=== PATIENT | male | born 1970 | race Caucasian/White ===

== ENCOUNTER 2016-09-25 18:45 | Inpatient (IN) | payer OTHER ==
[~2016-09-25] VITALS: Ht 188 cm; Wt 104.6 kg
--- NOTE | 2016-09-26 00:34 | DIAGNOSTIC IMAGING REPORT ---
PROCEDURE: CT ABD/PELVIS WITH CONTRAST INDICATION: Abdominal pain and jaundice. History of cirrhosis. TECHNIQUE: 125 ml of Isovue 300 were injected intravenously and axial images were obtained of the entire abdomen and pelvis with sagittal and coronal reformations. COMPARISON: None. FINDINGS: ABDOMEN: Cholecystectomy (surgical clips). Cirrhosis of the liver with portal hypertension and marked splenomegaly (17 cm). Moderate ascites. Pancreas, kidneys, and aorta are normal. Moderate degenerate change of the lumbar spine. Bowel pattern is within normal limits. PELVIS: Moderate ascites. Surgical clips in the cul-de-sac. Pelvic structures are otherwise normal.. IMPRESSION: 1. Cirrhosis with portal hypertension. 2. Marked splenomegaly (17 cm). 3. Moderate ascites 4. Status post cholecystectomy. 5. Findings discussed with Dr. Cowart. All CT scans at this facility use dose modulation, iterative reconstruction, and/or weight-based dosing when appropriate to reduce radiation dose to as low as reasonably achievable.
--- NOTE | 2016-09-26 00:37 | ED ORDER SUMMARY ---
..... Patient: MIRANDA SHANKS OrderSheet [facility] VisitID: [id number] [place] [address] 46y, M Registration Date/Time: 09/25/2016 ORDER SHEET Weight: 99.7 kg (stated) Allergies: Penicillins GENERAL ORDERS: CBC w Diff Urgent (20:34 09/25/2016 Asia WHITE) (Ack 20:35 SRedmond) (21:02 KPage-Kuchan R.N.) CMP Urgent (20:34 09/25/2016 Asia WHITE) (Ack 20:35 SRedmond) (21:02 KPage-Kuchan R.N.) Record Maker (Continuous) (20:09/25/2016 Asia WHITE) (Ack 20:40 SRedmond) (21:02 KPage-Kuchan R.N.) PCT (Procalcitonin) Urgent (20:09/25/2016 Asia WHITE) (Ack 20:40 SRedmond) (21:02 KPage-Kuchan R.N.) Blood Culture (No) (N/A) Urgent (22:31 09/25/2016 Yamileth WHITE) (Ack 22:39 SRedmond) (1:10 KPage-Kuchan R.N.) Culture, Urine (Urine, Clean Catch) Urgent (22:09/25/2016 Yamileth WHITE) (Ack 22:39 SRedmond) (0:43 KPage-Kuchan R.N.) Culture, Sputum (Sputum) (sputum) Urgent (22:31 09/25/2016 Yamileth WHITE) (Ack 22:39 SRedmond) (0:49 CFalkner R.N.) - (Ascitic fluid for cell count, culture, albumin, protein, glucose,LDH,amylase, bilirubin) (23:35 09/25/2016 Yamileth WHITE) (Ack 23:45 SRedmond) (0:47 CHagerty ER Surveying Crew Stake Runner) CT Abd/Pel w Cont (No) (see report) Urgent (23:36 09/25/2016 Yamileth WHITE) (Ack 23:43 SRedmond) (0:13 Jeffrey) Ammonia Level Urgent (23:42 09/25/2016 Yamileth WHITE) (Ack 23:43 Braydon) (1:10 KPage-Stefania R.N.) MEDICATION ORDERS: IV FLUIDS: IV Saline Lock (20:38 09/25/2016 Asia WHITE) (21:02 KPage-Kuchan R.N.) Cefotaxime IV 2 gm/100mL (NOW) (00:35 09/26/2016 Yamileth WHITE) (Cancelled: Unavailable/Mat/Equip0:51 Yamileth WHITE) Ceftriaxone IV 2 gm/50mL (NOW) (00:51 09/26/2016 Yamileth WHITE) (1:33 KPage-Danielen R.N.) ORDER SHEET NOTES: [Electronically signed by Irvin Roque R.N. (02:17 09/26/2016)] [Electronically signed by Sergei Cowart MD (03:34 09/26/2016)] [Electronically locked/signed by Irvin Roque R.N. (02:17 09/26/2016)]
--- NOTE | 2016-09-26 00:37 | ED ORDER SUMMARY ---
..... Patient: MIRANDA SHANKS OrderSheet [facility] VisitID: [id number] [place] [address] 46y, M Registration Date/Time: 09/25/2016 ORDER SHEET Weight: 99.7 kg (stated) Allergies: Penicillins GENERAL ORDERS: CBC w Diff Urgent (20:34 09/25/2016 Asia WHITE) (Ack 20:35 SRedmond) (21:02 KPage-Kuchan R.N.) CMP Urgent (20:34 09/25/2016 Asia WHITE) (Ack 20:35 SRedmond) (21:02 KPage-Kuchan R.N.) Machine Molder (Continuous) (20:09/25/2016 Asia WHITE) (Ack 20:40 SRedmond) (21:02 KPage-Kuchan R.N.) PCT (Procalcitonin) Urgent (20:09/25/2016 Asia WHITE) (Ack 20:40 SRedmond) (21:02 KPage-Kuchan R.N.) Blood Culture (No) (N/A) Urgent (22:31 09/25/2016 Yamileth WHITE) (Ack 22:39 SRedmond) (1:10 KPage-Kuchan R.N.) Culture, Urine (Urine, Clean Catch) Urgent (22:09/25/2016 Yamileth WHITE) (Ack 22:39 SRedmond) (0:43 KPage-Kuchan R.N.) Culture, Sputum (Sputum) (sputum) Urgent (22:31 09/25/2016 Yamileth WHITE) (Ack 22:39 SRedmond) (0:49 CFalkner R.N.) - (Ascitic fluid for cell count, culture, albumin, protein, glucose,LDH,amylase, bilirubin) (23:35 09/25/2016 Yamileth WHITE) (Ack 23:45 SRedmond) (0:47 CHagerty ER Peanut Blancher) CT Abd/Pel w Cont (No) (see report) Urgent (23:36 09/25/2016 Yamileth WHITE) (Ack 23:43 SRedmond) (0:13 Jeffrey) Ammonia Level Urgent (23:42 09/25/2016 Yamileth WHITE) (Ack 23:43 Braydon) (1:10 KPage-Stefania R.N.) MEDICATION ORDERS: IV FLUIDS: IV Saline Lock (20:38 09/25/2016 Asia WHITE) (21:02 KPage-Kuchan R.N.) Cefotaxime IV 2 gm/100mL (NOW) (00:35 09/26/2016 Yamileth WHITE) (Cancelled: Unavailable/Mat/Equip0:51 Yamileth WHITE) Ceftriaxone IV 2 gm/50mL (NOW) (00:51 09/26/2016 Yamileth WHITE) (1:33 KPage-Danielen R.N.) ORDER SHEET NOTES: [Electronically signed by Irvin Roque R.N. (02:17 09/26/2016)] [Electronically signed by Sergei Cowart MD (03:34 09/26/2016)] [Electronically locked/signed by Irvin Roque R.N. (02:17 09/26/2016)]
--- NOTE | 2016-09-26 00:37 | ED CLINICAL REPORT ---
Clinical Report - Physicians/Mid Levels [facility] [address] [place] [address] 09/25/2016 18:45 Patient: MIRANDA SHANKS Time Seen: 19:44 Sep 25 2016. Arrived- By private vehicle. Historian- patient. HISTORY OF PRESENT ILLNESS Chief Complaint: ABDOMINAL PAIN. It is described as "pain" and diffuse and it is described as located in the periumbilical area. At its maximum, severity described as severe. When seen in the E.D., severity described as severe. This started just prior to arrival and is still present. The patient has had nausea. He has had mild vomiting. The vomiting has occurred several times. No blood-tinged emesis or frankly bloody emesis. Similar symptoms previously: Several times, as bad. Diagnosis: (ascites). Recent medical care: The patient was seen recently at another facility and hospitalized (2 months ago at [facility]:). Evaluation/treatment- 5 liters removed. REVIEW OF SYSTEMS The patient has had fever and fatigue. No calf pain, chest pain, cough, difficulty breathing or pedal edema. No palpitations, black stools, bloody stools or urinary problems. All systems otherwise negative, except as recorded above. PAST HISTORY Problems: Suture Removal. Murmur. Esophageal ulcers. Gastric ulcer. Kidney problems. Liver failure. Alcoholism. Additional Surgeries: Carpal Tunnel Surgery. Cholecystectomy. Dental Surgery. Hernia Repair. Medications: Xifaxan Oral (Tablet 550 mg) 1 tablet, 2 times daily. Ursodiol Oral (Capsule 300 mg) 2 capsules, 2 times daily. Spironolactone Oral (Tablet 50 mg) 1 tablet, daily. Propranolol HCl Oral (Tablet 10 mg) 1 tablet, 2x a day. Pantoprazole Sodium Oral (Tablet Delayed Release 40 mg) 1 tablet, daily. Lactulose Oral (Solution 20 gm/30mL), 3x a day. Furosemide Oral (Tablet 20 mg) 1 tablet, daily. Dicyclomine HCl Oral (Tablet 20 mg) 1 tablet, 4x a day. Allergies: Penicillins. SOCIAL HISTORY Alcohol use. Patient is a recovering alcoholic. FAMILY HISTORY Denies family medical history. ADDITIONAL NOTES The nursing notes have been reviewed. PHYSICAL EXAM Vital Signs: 09/25/2016 19:42 BP: 127/65. HR: 99. RR: 17. O2 saturation: 100%. Temp: 99.7 F. Pain level now: 02/15. Have been reviewed. Appearance: Alert. Appears to be in pain. Eyes: Pupils equal, round and reactive to light. ENT: Pharynx normal. Neck: Normal inspection. Neck supple. Respiratory: No respiratory distress. Breath sounds normal. Abdomen: Soft. No organomegaly. No mass. Distention (mild). Obese. Back: Normal inspection. Skin: Jaundiced. Extremities: Extremities exhibit normal ROM. No lower extremity edema. LABS, X-RAYS, AND EKG Abdominal CT: IMPRESSION: 1. Cirrhosis with portal hypertension. 2. Marked splenomegaly (17 cm). 3. Moderate ascites 4. Status post cholecystectomy. The study was interpreted contemporaneously by me and discussed with the radiologist. Laboratory Tests: CMP: (APOLLO: 09/26/2016 02:45) ( MsgRcvd 09/26/2016 03:07) Final results Test Result Flag Units (Reference) GLUCOSE 102 mg/dL (70-110) BUN 18 mg/dL (7-18) CREATININE 1.4 H mg/dL (0.6-1.3) Estimated GFR 57.99 mL/min Estimated GFR- >60 mL/min Note: Persistent reduction over 3 months in eGFR<60 mL/min/1.73 m2 defines CKD. Patients with eGFR values>=60 mL/min/1.73 m2 may also have CKD if evidence ofpersistent proteinuria. Additional information may be foundat www.kidney.org. SODIUM 133 L mmol/L (136-145) POTASSIUM 4.2 mmol/L (3.5-5.1) CHLORIDE 102 mmol/L (98-107) CARBON DIOXIDE 22 mmol/L (21-32) CALCIUM 8.5 mg/dL (8.5-10.1) TOTAL PROTEIN 6.1 L g/dL (6.4-8.2) ALBUMIN 2.4 L g/dL (3.3-5.0) BILIRUBIN, TOTAL 8.1 H mg/dL (0.0-1.0) ALKALINE PHOSPHATASE 177 H U/L (46-116) AST (SGOT) 50 H U/L (15-37) ALT (SGPT) 30 U/L (12-78) CBC w Diff: (APOLLO: 09/25/2016 20:57) ( [facility] [place] 22:07) Final results Test Result Flag Units (Reference) WHITE BLOOD COUNT 10.0 K/uL (4.5-11.5) RED BLOOD COUNT 2.41 L M/uL (4.50-5.90) HEMOGLOBIN 8.8 L gm/dL (13.5-17.5) HEMATOCRIT 24.9 L % (41.0-53.0) MEAN CELL VOLUME 104 H fL (80-100) MEAN CORPUSCULAR HGB 37 H pg (26-34) MEAN CORPUSCULAR HGB CONC 36 g/dL (31-37) RED CELL DISTRIBUTION WIDTH 15.8 H % (11.6-14.8) PLATELET COUNT 79 L K/uL (150-400) POLY % 82 H % (50-75) BAND % 1 % (0-8) LYMPH 8 L % (25-40) MONO 7 % (3-14) EOSINOPHIL % 2 % (0-4) BASOPHIL % 0 % (0-2) METAMYELOCYTE % 0 % (0-1) MYELOCYTE 0 % (0-1) OTHER CELL TYPE 0 POLYCHROMASIA 1+ ANISOCYTOSIS 1+ OVALOCYTES 1+ HELMET CELLS 1+ GIBSON CELLS 1+ Glucose, Random: (APOLLO: 09/25/2016 23:45) ( [facility] [place] 00:34) Final results Test Result Flag Units (Reference) GLUCOSE 106 mg/dL (70-110) TOTAL PROTEIN 0.6 L g/dL (6.4-8.2) ALBUMIN 0.2 L g/dL (3.3-5.0) BILIRUBIN, TOTAL 0.7 mg/dL (0.0-1.0) LDH 122 U/L (117-222) AMYLASE 15 L U/L (25-115) Ammonia Level: (APOLLO: 09/25/2016 20:57) ( MsgRcvd 09/26/2016 00:22) Final results Test Result Flag Units (Reference) AMMONIA 43 H umol/L (11-32) [id number]: (APOLLO: 09/25/2016 20:57) ( MsgRcvd 09/25/2016 21:59) Final results Test Result Flag Units (Reference) PROCALCITONIN <0.5 ng/mL (0-0.5) PCT Concentration: Interpretation : Risk/option for action PCT <=0.5 ng/mL : Systemic : Low risk forinfection(sepsis): progression to severeis not likely. : systemic infection.Local bacterial : CAUTION-PCT levelsinfection is : below 0.5 ng/mL do notpossible. : exclude an infection,because localizedinfections (withoutsystemic signs) may beassociated with suchlow levels. If PCT ismeasured very earlyafter a bacterialchallenge (usually <6hours), these valuesmay still be low. Inthis case PCT shouldbe re-assessed 6-24hours later. PCT >0.5 and : Systemic infection: Moderate risk for<= 2 ng/mL : (sepsis) is : progression to severepossible, but : systemic infection.other conditions : The patient should beare known to : closely monitoredelevate PCT. : both clinically andby re-assessing PCTwithin 6-24 hours. PCT > 2 ng/mL : Systemic infection: High risk for(sepsis) is likely: progression to severeunless other : systemic infection.causes are known. : PCT >= 10 ng/mL : Important systemic: High likelihood ofinflammatory : severe sepsis orresponse, almost : septic shock.exclusively due to:severe bacterial :sepsis or septic :shock. : CMP: (APOLLO: 09/25/2016 20:57) ( MsgRcvd 09/25/2016 21:28) Final results Test Result Flag Units (Reference) GLUCOSE 109 mg/dL (70-110) BUN 18 mg/dL (7-18) CREATININE 1.5 H mg/dL (0.6-1.3) Estimated GFR 53.55 mL/min Estimated GFR- >60 mL/min Note: Persistent reduction over 3 months in eGFR<60 mL/min/1.73 m2 defines CKD. Patients with eGFR values>=60 mL/min/1.73 m2 may also have CKD if evidence ofpersistent proteinuria. Additional information may be foundat www.kidney.org. SODIUM 133 L mmol/L (136-145) POTASSIUM 4.6 mmol/L (3.5-5.1) CHLORIDE 101 mmol/L (98-107) CARBON DIOXIDE 23 mmol/L (21-32) CALCIUM 8.8 mg/dL (8.5-10.1) TOTAL PROTEIN 7.0 g/dL (6.4-8.2) ALBUMIN 2.8 L g/dL (3.3-5.0) BILIRUBIN, TOTAL 8.6 H mg/dL (0.0-1.0) Icteric specimen ALKALINE PHOSPHATASE 226 H U/L (46-116) AST (SGOT) 59 H U/L (15-37) ALT (SGPT) 34 U/L (12-78) Body Fluid Cell Count: (APOLLO: 09/25/2016 23:45) ( MsgRcvd 09/26/2016 00:49) Final results Test Result Flag Units (Reference) BODY FLUID TYPE ASCITES BF APPEARANCE SLIGHTLY HAZY (CLEAR) BF COLOR YELLOW BODY FLUID WBC 1410 WBC/mm3 BODY FLUID RBC 115 RBC/mm3 BODY FLUID SEGMENTED NEUTS 94 % BODY FLUID MONONUCLEAR CELLS 6 % . PROGRESS AND PROCEDURES Paracentesis: Time-out completed immediately before the procedure. Explained procedure's risks, benefits, and alternatives to the patient. Possible complications discussed including infection, bleeding, perforation and allergic reaction. Prep done with Betadine. Local anesthesia provided using 2% lidocaine with epinephrine. The procedure was performed with the patient supine. Sterile technique used. Landmarks identified; left lower quadrant approach taken. Ultrasound guidance utilized. Peritoneal fluid aspirated using 18g needle. Yellow, cloudy fluid obtained. Fluid sent for culture and sensitivity, cell count, gram stain, albumin. Applied bandage and compression. No complications. Course of Care: Patient is stable. Discussed case with hospitalist, (Agustín). Reviewed test results and need for additional work-up. Agreed upon treatment plan, need for patient follow-up and decision to admit. Patient/family counseled. Old medical records reviewed. Disposition: Admitted. CLINICAL IMPRESSION Spontaneous bacterial peritonitis. INSTRUCTIONS Warnings: Further evaluation is necessary. GENERAL WARNINGS: Return or contact your physician immediately if your condition worsens or changes unexpectedly, if not improving as expected, or if other problems arise. (Electronically signed by Sergei Cowart MD 09/26/2016 3:34)
--- NOTE | 2016-09-26 00:37 | ED NURSING NOTES ---
Clinical Report - Nurses [facility] [address] [place] [address] 09/25/2016 18:45 Patient: MIRANDA SHANKS TRIAGE Triage time 19:42 Apr 2016. Acuity: LEVEL 3. Chief Complaint: ABDOMINAL PAIN and (pt with hx of cirrhosis of liver wtih ascites- r/t etoh- sclera of eyes jaundiced). Alert. No acute distress. SEPSIS SCREEN: Sepsis Screen: negative. Infection suspected/documented. Heart rate greater than 90. --19:50 Juan Ramon Jasso R.N. 19:42 09/25/16. BP: 127/65 taken on the left arm, while lying. HR: 99. RR: 17 (regular). O2 saturation: 100%. Temp: 99.7 F. Pain level now: 02/15. --19:50 Juan Ramon Jasso R.N. Weight: 99.7 kg stated. Height/Length: 74 inches Per Patient. BMI: 28.2. --19:50 Juan Ramon Jasso R.N. Medications Dicyclomine HCl Oral (Tablet 20 mg) 1 tablet, 4x a day. --19:54 Juan Ramon Jasso R.N. Furosemide Oral (Tablet 20 mg) 1 tablet, daily. --19:54 Juan Ramon Jasso R.N. Lactulose Oral (Solution 20 gm/30mL), 3x a day. --19:55 Juan Ramon Jasso R.N. Pantoprazole Sodium Oral (Tablet Delayed Release 40 mg) 1 tablet, daily. --19:56 Juan Ramon Jasso R.N. Propranolol HCl Oral (Tablet 10 mg) 1 tablet, 2x a day. --19:57 Juan Ramon Jasso R.N. Spironolactone Oral (Tablet 50 mg) 1 tablet, daily. --19:57 Juan Ramon Jasso R.N. Ursodiol Oral (Capsule 300 mg) 2 capsules, 2 times daily. --19:58 Juan Ramon Jasso R.N. Xifaxan Oral (Tablet 550 mg) 1 tablet, 2 times daily. --20:00 Juan Ramon Jasso R.N. Allergies Penicillins. --19:45 Juan Ramon Jasso R.N. History Arrived by private vehicle. Historian: patient. The patient has had nausea, mild vomiting. It has been similar to previous episodes and abdominal pain. ( headache). Last oral intake by patient was (9 hours ago). 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 PAST MEDICAL HX: Immunizations: (not given due to liver #'s). SOCIAL HX: Never smoker. Alcohol use. (last drink july 07, 2015). No recent travel. No infectious disease exposure. No known contact with a sick individual. ABUSE ASSESSMENT: No report of abuse. SELF HARM ASSESSMENT: A self harm assessment was performed. The patient answered "no" to the question "Have you recently felt down, depressed, or hopeless?", "Have you noticed less interest or pleasure in doing things?", "Do you have thoughts of harming or killing yourself?", "Are you here because you tried to hurt yourself?", "Have you ever tried to hurt yourself before today?", "Have you recently had thoughts about harming or killing others?" and "Do you have any dangerous items in your possession?". FALL RISK ASSESSMENT: Fall risk assessment completed. No fall risk identified. NUTRITIONAL RISK ASSESSMENT: The nutritional risk assessment revealed no deficiencies. FUNCTIONAL ASSESSMENT: Functional assessment: no impairments noted. LEARNING NEEDS ASSESSMENT: The learning needs assessment revealed no barriers. SKIN INTEGRITY ASSESSMENT: Skin integrity risk assessment completed. No skin integrity risk identified. --19:50 Juan Ramon Jasso R.N. PROBLEMS: Suture Removal. Murmur. Esophageal ulcers. Gastric ulcer. Kidney problems. Liver failure. Alcoholism. --19:45 Juan Ramon Jasso R.N. ADDITIONAL SURGERIES: Carpal Tunnel Surgery. Cholecystectomy. Dental Surgery. Hernia Repair. --19:45 Juan Ramon Jasso R.N. Interventions ID and allergy band on patient. To treatment room. --19:50 Juan Ramon Jasso R.N. PHYSICAL ASSESSMENT Ambulatory to room. Patient gowned. ( jaundiced). GENERAL / NEURO / PSYCH: Alert. Oriented X 4. Appears in pain. RESPIRATORY: Respirations not labored. Breath sounds within normal limits. CVS: Capillary refill less than 2 seconds. GI / : The patient has had intermittent episodes of nausea. Abdomen soft. Abdominal tenderness diffusely (diffuse with worse pain to RUQ). Blood present in the stool. SKIN: Skin is warm and dry. --19:52 Juan Ramon Jasso R.N. ( pt remains in ST on monitor, c/o pain 9/10 mid abd, set up for paracentesis at bedside,). GENERAL / NEURO / PSYCH: Alert. Oriented X 4. SKIN: Skin is warm and dry. --22:55 Juan Ramon Jasso R.N. NURSING PROGRESS NOTES Pulse oximeter and NIBP monitor placed on patient; monitor alarms on. Patient gowned. Head of bed elevated. Two patient identifiers checked. Call light placed in reach. Side rails up x 2. Bed placed in lowest position. Brakes of bed on. Patient ready for evaluation- chart flagged. --19:52 Juan Ramon Jasso R.N. 20:57 09/25/2016 Site #1 started via IV in the right antecubital space with an 20g angiocath; one attempt. Blood drawn: rainbow set. Labeled in the presence of the patient and sent to the lab. Saline lock flushed. --21:02 Juan Ramon Jasso R.N. Cardiac rhythm: sinus tachycardia. cafeteria monitor, pulse oximeter and NIBP monitor placed on patient; bus driver/monitor- Lead II and V5; monitor alarms on. Two patient identifiers checked. Call light placed in reach. Side rails up x 2. Bed placed in lowest position. Brakes of bed on. Patient waiting for lab results. --21:03 Juan Ramon Jasso R.N. 21:01 09/25/16. BP: 118/53. HR: 102. O2 saturation: 99% on room air. --21:03 Juan Ramon Jasso R.N. 21:57 09/25/16. BP: 94/54. HR: 105. O2 saturation: 99%. --21:58 Juan Ramon Jasso R.N. 22:43 09/25/16. BP: 105/53. HR: 105. O2 saturation: 99% on room air. --22:43 Juan Ramon Jasso R.N. Call light placed in reach. --22:43 Juan Ramon Jasso R.N. 22:55 09/25/16. BP: 109/51. HR: 102 (tachycardic). RR: 17. O2 saturation: 99% on room air. Pain level now: 02/15. --22:56 Juan Ramon Jasso R.N. Call light placed in reach. --22:56 Juan Ramon Jasso R.N. 23:33 09/25/16. BP: 106/51. HR: 104. 23:14 09/25/16. BP: 112/53. HR: 106. 23:02 09/25/16. BP: 118/55. HR: 107. O2 saturation: 100%. 22:55 09/25/16. BP: 109/51. HR: 102 (tachycardic). RR: 17. O2 saturation: 99% on room air. Pain level now: 02/15. 22:43 09/25/16. BP: 105/53. HR: 105. O2 saturation: 99% on room air. 21:57 09/25/16. BP: 94/54. HR: 105. O2 saturation: 99%. 21:34 09/25/16. BP: 98/44. HR: 117. Pain level now: 02/15. 21:01 09/25/16. BP: 118/53. HR: 102. O2 saturation: 99% on room air. 19:42 09/25/16. BP: 127/65 taken on the left arm, while lying. HR: 99. RR: 17 (regular). O2 saturation: 100%. Temp: 99.7 F. Pain level now: 02/15. --00:34 Juan Ramon Jasso R.N. ( notified of pts bp-no orders received.). --00:37 Juan Ramon Jasso R.N. Checked patient name and birthdate: patient confirmed. Patient verbalized understanding. Clean catch urine collected with return of brown-colored urine; sample sent to lab for urinalysis. Specimen labeled in the presence of the patient (collected by Marleny BRIDGES). --00:42 Juan Ramon Jasso R.N. Patient ID band checked for patient name and birthdate: patient confirmed. Blood samples drawn from the left antecubital space with syringe and 21g butterfly by tech per protocol ; labeled in presence of the patient and sent to lab: blood culture (2nd set). --01:19 Adam Wilcox, BRAD Software Reverse Engineer ( Report received from CYRUS Delatorre). --01:19 Irvin Roque R.N. ( Patient on monitor: Sinus Tach). --01:20 Irvin Roque R.N. 01:22 09/26/2016 Started 2 gm of Ceftriaxone IVPB in bag #1 100 mL; at 75 mL/hr via site #1 via IV pump. Allergies verified and confirmed 5 rights. IV patency established. IV site checked: no pain, redness, or swelling. IV flushed thoroughly pre- and post-medication administration (due to pts pcn allergy, started at slower rate and monitoring, pt instructed to notify RN immediately for any symptoms of reaction). --01:33 Juan Ramon Jasso R.N. Care transferred and report given (Davi RN in ED, report called to Gayle BRIDGES for admission). --01:35 Juan Ramon Jasso R.N. 01:48 09/26/16. BP: 115/52 taken while sitting. HR: 108 (regular). RR: 18. O2 saturation: 100% on room air. --01:49 Irvin Roque R.N. ( talking with doctor). --01:49 Irvin Roque R.N. 01:50 09/26/2016 IV Saline Lock Drip IV Continued: upon admission at the rate of 75 mL/hr. IV patency established. IV site checked: no pain, redness, or swelling. IV flushed thoroughly. --01:51 Irvin Roque R.N. DISPOSITION / DISCHARGE Report was given to a nurse via a phone call. Report included patient's care, treatment, medications, reviewed medication reconcilliation, and condition (including any recent changes or anticipated changes). All questions were answered. Report was acknowledged. (Gayle BRIDGES). ( care released to Davi BRIDGES). --01:34 Page-Juan Ramon Aguiar R.N. Departure time: 0205. --02:16 Irvin Roque R.N. 01:48 09/26/16. BP: 115/52 taken while sitting. HR: 108 (regular). RR: 18. O2 saturation: 100% on room air. --02:16 Irvin Roque R.N. Patient's personal items include: shirt, pants, shoes and cell phone; items were transported with the patient. --02:17 Irvin Roque R.N. Locked/Released at 09/26/2016 2:17 by Irvin Roque R.N.
[2016-09-26 02:14] VITALS: BP 120/50
[2016-09-26] MEDS ORDERED: DICYCLOMINE HCL20 MG PO (02:45)
[2016-09-26] MEDS ORDERED: FUROSEMIDE20 MG PO (02:46)
[2016-09-26] MEDS ORDERED: LACTULOSE PO (02:47)
[2016-09-26] MEDS ORDERED: PROPRANOLOL HCL10 MG PO (02:48)
[2016-09-26] MEDS ORDERED: PANTOPRAZOLE SO40 MG PO (02:48)
[2016-09-26] MEDS ORDERED: ALDACTONE25 MG PO (02:49)
[2016-09-26] MEDS ORDERED: URSODIOL300 MG PO (02:50)
[2016-09-26] MEDS ORDERED: XIFAXAN550 MG PO (02:50)
--- NOTE | 2016-09-26 03:34 | ED MAR SUMMARY ---
..... Medication Administration Record [facility] [address] [place] [address] Patient: MIRANDA SHANKS Visit ID: [id number] 46y, M Weight: 99.7 kg Height/Length: 74 in BMI: 28.2 ALLERGIES: Penicillins Start 01:22 09/26/2016 Juan Ramon Jasso R.N. Medication Administered: CEFTRIAXONE [IVPB], Dose: 2 gm IVPB, Rate: 75 mL/hr, Dispensed: 100 mL bag, Site: #1 right AC. Medication Ordered: Ceftriaxone IV 2 gm/50mL (NOW).
--- NOTE | 2016-09-26 03:34 | ED MED RECONCILIATION SUMMARY ---
Patient: MIRANDA SHANKS Medication Reconciliation Report [facility] VisitID: [id number] [address] [place] [address] 46y, M Registration Date/Time: 09/25/2016 Weight: 99.7 kg Height/Length: 74 in. BMI: 28.2 ALLERGIES: Penicillins The patient's Home Medications are listed below: THE FOLLOWING MEDICATIONS NEED TO BE RECONCILED: Dicyclomine HCl Oral (20 mg) 1 tablet, 4x a day Furosemide Oral (20 mg) 1 tablet, daily Lactulose Oral (20 gm/30mL), 3x a day Pantoprazole Sodium Oral (40 mg) 1 tablet, daily Propranolol HCl Oral (10 mg) 1 tablet, 2x a day Spironolactone Oral (50 mg) 1 tablet, daily Ursodiol Oral (300 mg) 2 capsules, 2 times daily Xifaxan Oral (550 mg) 1 tablet, 2 times daily The source(s) of the original Home Medication information: Not obtained. The following Medications were given to the patient in the Emergency Department: Ceftriaxone [IVPB] IVPB bolus 0, then 2 gm 75 mL/hr, administered: 09/26/2016 1:22:00 AM The following Medications were prescribed to the patient: None.
--- NOTE | 2016-09-26 03:34 | ED MED RECONCILIATION SUMMARY ---
Patient: MIRANDA SHANKS Medication Reconciliation Report [facility] VisitID: [id number] [address] [place] [address] 46y, M Registration Date/Time: 09/25/2016 Weight: 99.7 kg Height/Length: 74 in. BMI: 28.2 ALLERGIES: Penicillins The patient's Home Medications are listed below: THE FOLLOWING MEDICATIONS NEED TO BE RECONCILED: Dicyclomine HCl Oral (20 mg) 1 tablet, 4x a day Furosemide Oral (20 mg) 1 tablet, daily Lactulose Oral (20 gm/30mL), 3x a day Pantoprazole Sodium Oral (40 mg) 1 tablet, daily Propranolol HCl Oral (10 mg) 1 tablet, 2x a day Spironolactone Oral (50 mg) 1 tablet, daily Ursodiol Oral (300 mg) 2 capsules, 2 times daily Xifaxan Oral (550 mg) 1 tablet, 2 times daily The source(s) of the original Home Medication information: Not obtained. The following Medications were given to the patient in the Emergency Department: Ceftriaxone [IVPB] IVPB bolus 0, then 2 gm 75 mL/hr, administered: 09/26/2016 1:22:00 AM The following Medications were prescribed to the patient: None.
--- NOTE | 2016-09-26 03:34 | ED DISCHARGE INSTRUCTIONS ---
Patient: MIRANDA SHANKS General Instructions [facility] VisitID: [id number] [address] [place] [address] 46y, M Registration Date/Time: 09/25/2016 Spontaneous bacterial peritonitis. INSTRUCTIONS Warnings: Further evaluation is necessary. GENERAL WARNINGS: Return or contact your physician immediately if your condition worsens or changes unexpectedly, if not improving as expected, or if other problems arise. (Electronically signed by Sergei Cowart MD 09/26/2016 3:34)
--- NOTE | 2016-09-26 03:34 | ED DISCHARGE INSTRUCTIONS ---
Patient: MIRANDA SHANKS General Instructions [facility] VisitID: [id number] [address] [place] [address] 46y, M Registration Date/Time: 09/25/2016 Spontaneous bacterial peritonitis. INSTRUCTIONS Warnings: Further evaluation is necessary. GENERAL WARNINGS: Return or contact your physician immediately if your condition worsens or changes unexpectedly, if not improving as expected, or if other problems arise. (Electronically signed by Sergei Cowart MD 09/26/2016 3:34)
--- NOTE | 2016-09-26 03:34 | ED MAR SUMMARY ---
..... Medication Administration Record [facility] [address] [place] [address] Patient: MIRANDA SHANKS Visit ID: [id number] 46y, M Weight: 99.7 kg Height/Length: 74 in BMI: 28.2 ALLERGIES: Penicillins Start 01:22 09/26/2016 Juan Ramon Jasso R.N. Medication Administered: CEFTRIAXONE [IVPB], Dose: 2 gm IVPB, Rate: 75 mL/hr, Dispensed: 100 mL bag, Site: #1 right AC. Medication Ordered: Ceftriaxone IV 2 gm/50mL (NOW).
--- NOTE | 2016-09-26 04:11 | Progress Note ---
Subjective General General Admission History and Physical Examination Patient Name: Carlos Stahl Admission Date: September 26, 2016 Primary Care Provider: [facility] Attending Physician: Wade Randolph M.D. Admitting Physician: Wade Randolph M.D. Code Status: Full Code Room: 203 SUBJECTIVE Historian: Patient Reliability: Fair Chief Complaint: Abdominal pain Cirrhosis Recurrent fever Recurrent headaches History of Present Illness: The patient is a 46-year-old white male with a significant past medical history of alcohol abuse/dependence, recurrent upper GI bleed, cirrhosis, who presented to [facility] emergency department on the day of admission secondary to complaints of abdominal pain, and poor appetite. [facility] ER evaluation was consistent with upper GI bleed with associated anemia and hypotension. Secondary to the above, the patient was admitted by Wade Pelayo for further evaluation and treatment. The history of present illness began more than 2 days prior to the day of admission . The patient began experiencing worsening abdominal pain associated dark stools and dark urine. Patient was recently in to see his primary care and GI specialist. Has to end-stage liver. Patient has significant cirrhotic changes in the liver. Patient reports that he has an upcoming appointment with liver transplant at the . Patient also has had compliance with all his medication. Patient reports that the ascites fluid has been taken off on several occasions. Patient is also concerned with this today and would like to have this further assessed. While in the ED, patient was seen with distention of the abdomen. Ultrasound study of the abdomen that was done as a diagnostic and therapeutic imaging protocol. The peritoneal fluid content contained over thousand WBCs with the appearance of purulence. Patient was then admitted to general medicine for further follow-up. He reports that he had his last alcoholic beverage more than 14 months ago. [facility] ER evaluation showed the patient to have abdominal pain, low-grade fever, anxiety, depression. Chronic anemia with an H&H of 8.8/24.9. Secondary to the above the patient was admitted with a diagnosis of alcohol induced cirrhosis, potential SBP, anemia, acute abdominal pain. 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 Chronic anemia with prior workup done to assess for hemochromatosis. 3. Esophageal varices 4. Anxiety, depression 5. History of alcoholism 6. Kidney insufficiency Allergies: 1. No Known Drug Allergies Medications: 1. Dicyclomine 20 mg 4 times per day 2. Lasix 20 mg daily 3. Lactulose 20 g/30 mils oral solution; 4. Protonix 40 mg by mouth twice a day, take 30-60 mils by oral route daily. 5. Pantoprazole 40 mg 1 time daily 6. Prednisone 20 mg daily 7. Spironolactone 50 mg daily 8. Ursodiol 300 mg 2 capsules 2 times daily 9. Xifaxan 550 mg 1 tab 2 times daily Surgery: 1. Carpal tunnel surgery. 2. Cholecystectomy. 3. Dental surgery. 4. Hernia surgery Injuries: 1. No significant Hospitalizations: 1. For above medical problems FAMILY HISTORY Parents: 1. Father passed 2015 2. Mother passed 2015 SOCIAL HISTORY 1. 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 Occupational health exposures: Unknown HABITS 1. Tobacco: Previous smoker 2. Drugs: None 3. Alcohol: Discontinued all forms alcohol to use 15 months ago HEALTH SUPERVISION Item/Test 1. Not reviewed IMMUNIZATIONS: 1. Pneumococcal: No previous 2. Influenza: Unknown 3. Tetanus: Unknown REVIEW OF SYSTEMS Remarkable for those things stated in the history of present illness and past medical history. Seventeen point review of system completed with the following notable findings Skin: normal Eyes: normal Mouth: none Respiratory: SOB at times Cardiovascular: none Musculoskeletal: Joint stiffness, Psychological: Depression, anxiety : Physical Exam Vital Signs / I&Os Vital Signs Date Time Temp Pulse Resp B/P Pulse O2 O2 Flow FiO2 Ox Delivery Rate 09/26 213 99.7 105 20 120/50 100 Room Air 09/26 0213 Room Air General Appearance Oriented X3, Cooperative, anxious HEENT PERRLA, Moist mucous membranes, icteric sclera Lungs Clear to auscultation, Normal air movement Neck Supple Cardiovascular Regular rate and rhythm, Normal S1 and S2 Abdomen tender abdomen, hyperactive bowel sounds, nondistended, no rebound Extremities Normal pulses Skin No Breakdown Psych/Mental Status Mood normal LAB Results Laboratory Tests 09/257 7 2345 0245 Chemistry Plasma Sodium (136 - 145 mmol/L) 133 133 Plasma Potassium (3.5 - 5.1 mmol/L) 4.6 4.2 Plasma Chloride (98 - 107 mmol/L) 101 102 CO2 (Enzymatic) (21 - 32 mmol/L) 23 22 BUN (7 - 18 mg/dL) 18 18 Creatinine (0.6 - 1.3 mg/dL) 1.5 1.4 Est GFR ( Amer) (mL/min) >60 >60 Est GFR (Non-Af Amer) (mL/min) 53.55 57.99 Glucose (70 - 110 mg/dL) 109 106 102 Plasma Calcium (8.5 - 10.1 mg/dL) 8.8 8.5 Total Bilirubin (0.0 - 1.0 mg/dL) 8.6 0.7 8.1 AST (15 - 37 U/L) 59 50 ALT (12 - 78 U/L) 34 30 Alkaline Phosphatase (46 - 116 U/L) 226 177 Ammonia (11 - 32 umol/L) 43 Lactate Dehydrogenase (117 - 222 U/L) 122 Total Protein (6.4 - 8.2 g/dL) 7.0 0.6 6.1 Albumin (3.3 - 5.0 g/dL) 2.8 0.2 2.4 Amylase (25 - 115 U/L) 15 Procalcitonin (0 - 0.5 ng/mL) <0.5 Coagulation Free Protein S Antigen Cancelled Hematology WBC (4.5 - 11.5 K/uL) 10.0 RBC (4.50 - 5.90 M/uL) 2.41 Hgb (13.5 - 17.5 gm/dL) 8.8 Hct (41.0 - 53.0 %) 24.9 MCV (80 - 100 fL) 104 MCH (26 - 34 pg) 37 RDW (11.6 - 14.8 %) 15.8 Neut % (Auto) (50 - 75 %) 82 Lymph % (Auto) (25 - 40 %) 8 [place] % (Auto) (3 - 14 %) 7 Eos % (Auto) (0 - 4 %) 2 Baso % (Auto) (0 - 2 %) 0 Band Neutrophils % (0 - 8 %) 1 Metamyelocytes % (0 - 1 %) 0 Myelocytes (0 - 1 %) 0 Other Cell Type 0 Plt Count, EDTA (150 - 400 K/uL) 79 Polychromasia 1+ Anisocytosis (manual) 1+ Ovalocytes 1+ Helmet Cells 1+ [place] Cells 1+ PUBS MCHC (31 - 37 g/dL) 36 Other Body Source Fluid Type ASCITES Fluid Color YELLOW Fluid Appearance (CLEAR) SLIGHTLY HAZY Fluid WBC (WBC/mm3) 1410 Fluid RBC (RBC/mm3) 115 Fluid Seg Neutrophil % (%) 94 Fluid Mononuclear Cell (%) 6 Microbiology Date/Time Procedure - Status Source Growth 09/26 0121 Blood Culture - RECD BLOOD 09/26 0058 Blood Culture - RECD BLOOD 09/26 0035 Urine Culture - RECD URINE CC 09/26 2231 Respiratory Culture - ORD SPUTUM 09/26 2231 Culture and Gram Stain - ORD SPUTUM Imaging CT abd/Pelvis with contrast IMPRESSION: 1. Cirrhosis with portal hypertension. 2. Marked splenomegaly (17 cm). 3. Moderate ascites 4. Status post cholecystectomy. Assessment and Plan Problem List 1. Spontaneous bacterial peritonitis Plan Extreme tenderness to the abdominal region and cirrhotic liver changes in the setting of low-grade fever gives recent to rule out for SBP 2 g IV ceftriaxone given for coverage. Maintain Adequate fluid hydration. Avoiding strenuous activities. 2. Cirrhosis of liver Plan As per the above. Cirrhotic liver changes, awaiting transplant surgery. Guarding against SBP. Giving 2 g ceftriaxone daily for the next 5 days. Following cultures along with his hospital stay 3. Anxiety and depression Plan Patient has citalopram 40 mg given daily. Avoiding benzodiazepines with the history of alcohol abuse. Gave hydroxyzine 50 mg before bedtime. 4. Anemia Plan Long history of anemia with associated low hematocrit. No reason to exchange blood today. Patient's numbers have been rounding out at the base numbers currently seen. E&M Codes Admission: Inpt-Moderate/59816
[2016-09-26 06:37] VITALS: BP 121/64
--- NOTE | 2016-09-26 07:37 | Progress Note ---
Subjective General Note Date: September 26, 2016 Admission Date: September 26, 2016 Hospital Day: 1 [address]CP: [facility] Status: Inpatient Advanced Directive: FULL CODE Room: 203-B Brief History: The patient is a 46-year-old white male with a significant past medical history of alcohol abuse/dependence, recurrent upper GI bleed, cirrhosis, who presented to [facility] emergency department on the day of admission secondary to complaints of abdominal pain, and poor appetite. [facility] ER evaluation was consistent with upper GI bleed with associated anemia and hypotension. Secondary to the above, the patient was admitted by Wade Pelayo for further evaluation and treatment. For other history present illness, past medical history, family history, social history, review of systems, and admission physical examination please see the patient's history and physical examination and ER visit note in the patient's medical record. Subjective: The patient states he is doing slightly better today. Pain somewhat better controlled. Denies nausea or vomiting. Patient requests: Improved pain control Medications and Allergies Medications Current Medications Sig/Melva Start time Last Medication Dose Route Stop Time Status Admin Ceftriaxone Sodium/ 50 ML Q24H 09/27 0100 AC Dextrose IV Furosemide 20 MG DAILY 09/26 0900 AC PO Prednisone 20 MG DAILY 09/26 0900 AC PO Spironolactone 50 MG DAILY 09/26 0900 AC PO Dicyclomine HCl 20 MG QID 09/26 0600 AC 09/26 PO 0618 Pantoprazole Sodium 40 MG DAILY@0600 09/26 0600 AC 09/26 IV 0618 Hydroxyzine Pamoate See Dose Q3H PRN 09/26 0345 AC 09/26 Insts (1) PO 0439 Rifaximin 550 MG BID 09/26 0235 AC 09/26 PO 0322 Pantoprazole Sodium 40 MG NOW STA 09/26 0233 AC 09/26 IV 09/26 0234 0322 Lactulose 20 GM BID 09/26 0232 AC 09/26 PO 0322 Acetaminophen 650 MG Q6H PRN 09/26 0230 AC PO Hydromorphone HCl 1 MG Q6H PRN 09/26 0230 AC 09/26 IV 0322 Ondansetron HCl 4 MG Q6H PRN 09/26 0230 AC IV Sodium Chloride 1,000 ML ASDIRECTED 09/26 0230 AC 09/26 IV 0438 Sodium Chloride 1,000 ML ASDIRECTED 09/26 0115 AC 09/26 IV 0213 Dose Instructions: (1)Hydroxyzine Pamoate: 25 - 50 MG Allergies Coded Allergies: Penicillin V (From Penicil VK) (09/26/16) Allergies Penicillins. --19:45 Juan Ramon Jasso R.N. Physical Exam Vital Signs / I&Os Vital Signs Date Time Temp Pulse Resp B/P Pulse O2 O2 Flow FiO2 Ox Delivery Rate 09/26 0637 98.8 99 20 121/64 98 Room Air 09/26 0214 99.7 105 20 120/50 100 Room Air 09/26 0213 Room Air General Appearance Alert, Oriented X3, Cooperative, No acute distress Lungs Clear to auscultation, Normal air movement Cardiovascular Regular rate and rhythm, Normal S1 and S2, grade 2/6 systolic murmur present Abdomen Normal bowel sounds, Soft, diffuse tenderness present. Extremities No cyanosis, No clubbing, trace pedal edema. Neurological Cranial nerves intact, No lateralizing signs Psych/Mental Status Mental status normal, Mood normal LAB Results Laboratory Tests 09/26 09/25 09/25 09/25 09/25 0245 2345 7 2056 2056 Chemistry Plasma Sodium (136 - 145 mmol/L) 133 133 Plasma Potassium (3.5 - 5.1 mmol/L) 4.2 4.6 Plasma Chloride (98 - 107 mmol/L) 102 101 CO2 (Enzymatic) (21 - 32 mmol/L) 22 23 BUN (7 - 18 mg/dL) 18 18 Creatinine (0.6 - 1.3 mg/dL) 1.4 1.5 Est GFR ( Amer) (mL/min) >60 >60 Est GFR (Non-Af Amer) (mL/min) 57.99 53.55 Glucose (70 - 110 mg/dL) 102 106 109 Plasma Calcium (8.5 - 10.1 mg/dL) 8.5 8.8 Total Bilirubin (0.0 - 1.0 mg/dL) 8.1 0.7 8.6 AST (15 - 37 U/L) 50 59 ALT (12 - 78 U/L) 30 34 Alkaline Phosphatase (46 - 116 U/L) 177 226 Ammonia (11 - 32 umol/L) 43 Lactate Dehydrogenase (117 - 222 U/L) 122 Total Protein (6.4 - 8.2 g/dL) 6.1 0.6 7.0 Albumin (3.3 - 5.0 g/dL) 2.4 0.2 2.8 Amylase (25 - 115 U/L) 15 Procalcitonin (0 - 0.5 ng/mL) <0.5 Coagulation Free Protein S Antigen Cancelled Hematology WBC (4.5 - 11.5 K/uL) 10.0 RBC (4.50 - 5.90 M/uL) 2.41 Hgb (13.5 - 17.5 gm/dL) 8.8 Hct (41.0 - 53.0 %) 24.9 MCV (80 - 100 fL) 104 MCH (26 - 34 pg) 37 RDW (11.6 - 14.8 %) 15.8 Neut % (Auto) (50 - 75 %) 82 Lymph % (Auto) (25 - 40 %) 8 [place] % (Auto) (3 - 14 %) 7 Eos % (Auto) (0 - 4 %) 2 Baso % (Auto) (0 - 2 %) 0 Band Neutrophils % (0 - 8 %) 1 Metamyelocytes % (0 - 1 %) 0 Myelocytes (0 - 1 %) 0 Other Cell Type 0 Plt Count, EDTA (150 - 400 K/uL) 79 Polychromasia 1+ Anisocytosis (manual) 1+ Ovalocytes 1+ Helmet Cells 1+ [place] Cells 1+ PUBS MCHC (31 - 37 g/dL) 36 Other Body Source Fluid Type ASCITES Fluid Color YELLOW Fluid Appearance (CLEAR) SLIGHTLY HAZY Fluid WBC (WBC/mm3) 1410 Fluid RBC (RBC/mm3) 115 Fluid Seg Neutrophil % (%) 94 Fluid Mononuclear Cell (%) 6 Microbiology Date/Time Procedure - Status Source Growth 09/26 0440 Respiratory Culture - RECD SPUTUM 09/26 0440 Culture and Gram Stain - RECD SPUTUM 09/26 0121 Blood Culture - RECD BLOOD 09/26 0058 Blood Culture - RECD BLOOD 09/26 0035 Urine Culture - RECD URINE CC Assessment and Plan Problem List 1. Spontaneous bacterial peritonitis Plan -Continue Rocephin -Monitor -Peritoneal fluid inconsistent with spontaneous pectoral peritonitis, no cultures obtained -Monitor 2. Cirrhosis of liver Plan -Stable -Continue present therapy with lactulose, rifaximin, spironolactone, Lasix, and Inderal -Monitor ammonia and signs of hepatic encephalopathy 3. Anxiety and depression Plan -Stable -Monitor 4. Anemia Plan -Patient with findings of anemia -H&H 8.8/24.9 -Check iron studies, B12, folate Current status: Fair, stable Anticipated discharge date: Anticipated discharge in 3 days Anticipated discharge placement: Home Patient care time: Time spent in chart review, patient interview, physical exam, CPOE, and care documentation: 25 minutes Visit to patient today: 1 Complexity of care: Moderate E&M Codes Rounding: Inpt-Moderate/[id number]
[2016-09-26 10:15] VITALS: BP 99/55
[2016-09-26 14:07] VITALS: BP 100/59
[2016-09-26 18:20] VITALS: BP 113/57
[2016-09-26 22:40] VITALS: BP 109/62
[2016-09-27 02:11] VITALS: BP 108/58
[2016-09-27 06:27] VITALS: BP 98/57
--- NOTE | 2016-09-27 07:09 | Progress Note ---
Subjective General Note Date: September 27, 2016 Admission Date: September 26, 2016 Hospital Day: 2 PCP: [facility] Status: Inpatient Advanced Directive: FULL CODE Room: 203-B Brief History: The patient is a 46-year-old white male with a significant past medical history of alcohol abuse/dependence, recurrent upper GI bleed, cirrhosis, who presented to [facility] emergency department on the day of admission secondary to complaints of abdominal pain, and poor appetite. [facility] ER evaluation was consistent with upper GI bleed with associated anemia and hypotension. Secondary to the above, the patient was admitted by Wade Pelayo for further evaluation and treatment. For other history present illness, past medical history, family history, social history, review of systems, and admission physical examination please see the patient's history and physical examination and ER visit note in the patient's medical record. Subjective: The patient states he is doing well at this time. Abdominal pain improved. No nausea or vomiting. Patient requests: None Medications and Allergies Medications Current Medications Sig/Melva Start time Last Medication Dose Route Stop Time Status Admin Propranolol HCl 10 MG BID 09/26 2199 AC 09/26 PO 2202 Ceftriaxone Sodium/ 50 ML QHS 09/26 2100 AC 09/26 Dextrose IV 2056 Hydromorphone HCl 1 MG Q4H PRN 09/26 1615 AC 09/27 IV 0627 Furosemide 20 MG DAILY 09/26 09 AC 09/26 PO 0937 Prednisone 20 MG DAILY 09/26 0900 AC PO Spironolactone 50 MG DAILY 09/26 0900 AC 09/26 PO 0937 Dicyclomine HCl 20 MG QID 09/26 06 AC 09/27 PO 0622 Pantoprazole Sodium 40 MG DAILY@0600 09/26 0600 AC 09/27 IV 0622 Hydroxyzine Pamoate See Dose Q3H PRN 09/26 0345 AC 09/26 Insts (1) PO 2334 Rifaximin 550 MG BID 09/26 0235 AC 09/26 PO 2056 Lactulose 20 GM BID 09/26 023 AC 09/26 PO 2056 Acetaminophen 650 MG Q6H PRN 09/26 0230 AC PO Ondansetron HCl 4 MG Q6H PRN 09/26 0230 AC IV Sodium Chloride 1,000 ML ASDIRECTED 09/26 023 AC 04/22 IV 0158 Dose Instructions: (1)Hydroxyzine Pamoate: 25 - 50 MG Allergies Coded Allergies: Penicillin V (From Penicil VK) (09/26/16) Allergies Penicillins. --19:45 Juan Ramon Jasso R.N. Physical Exam Vital Signs / I&Os Vital Signs Date Time Temp Pulse Resp B/P Pulse O2 O2 Flow FiO2 Ox Delivery Rate 09/27 0627 98.8 84 18 98/57 96 Room Air 09/27 0211 98.2 78 18 108/58 98 09/26 2334 Room Air 09/26 2240 99.7 85 18 109/62 98 09/26 2203 90 09/26 1820 99.0 96 16 113/57 98 Room Air 0.0 09/26 1727 Room Air 09/26 1407 98.8 97 19 100/59 98 Room Air 09/26 1015 98.5 94 19 99/55 100 Room Air 09/26 0816 Room Air I&O 09/27 0000 09/26 1600 09/26 0800 Intake Total 890 1437 853 Output Total 375 1250 0 Balance 515 187 853 General Appearance Alert, Oriented X3, Cooperative, No acute distress Lungs Clear to auscultation, Normal air movement Cardiovascular Regular rate and rhythm, Normal S1 and S2, Murmur unchanged Abdomen Normal bowel sounds, Soft, mild diffuse tenderness Extremities No cyanosis, No clubbing, trace pedal edema Neurological Cranial nerves intact, No lateralizing signs Psych/Mental Status Mental status normal, Mood normal LAB Results Laboratory Tests 09/27 09/27 09/27 0554 0554 0500 Chemistry Plasma Sodium (136 - 145 mmol/L) 134 Plasma Potassium (3.5 - 5.1 mmol/L) 3.6 Plasma Chloride (98 - 107 mmol/L) 101 CO2 (Enzymatic) (21 - 32 mmol/L) 22 BUN (7 - 18 mg/dL) 15 Creatinine (0.6 - 1.3 mg/dL) 1.3 Est GFR ( Amer) (mL/min) >60 Est GFR (Non-Af Amer) (mL/min) >60 Glucose (70 - 110 mg/dL) 88 Plasma Calcium (8.5 - 10.1 mg/dL) 8.2 Total Bilirubin (0.0 - 1.0 mg/dL) 8.9 AST (15 - 37 U/L) 47 ALT (12 - 78 U/L) 28 Alkaline Phosphatase (46 - 116 U/L) 143 Ammonia (11 - 32 umol/L) < 10 Total Protein (6.4 - 8.2 g/dL) 6.0 Albumin (3.3 - 5.0 g/dL) 2.3 Coagulation INR (0.8 - 1.2) 1.9 Hematology WBC (4.5 - 11.5 K/uL) 8.4 Cancelled RBC (4.50 - 5.90 M/uL) 2.18 Cancelled Hgb (13.5 - 17.5 gm/dL) 7.8 Cancelled Hct (41.0 - 53.0 %) 22.6 Cancelled MCV (80 - 100 fL) 103 Cancelled MCH (26 - 34 pg) 36 Cancelled RDW (11.6 - 14.8 %) 15.9 Cancelled Neut % (Auto) (50 - 75 %) Pending Lymph % (Auto) (25 - 40 %) Pending [place] % (Auto) (3 - 14 %) Pending Band Neutrophils % (0 - 8 %) Pending Plt Count, EDTA (150 - 400 K/uL) 72 Cancelled PUBS MCHC (31 - 37 g/dL) 35 Cancelled Assessment and Plan Problem List 1. Spontaneous bacterial peritonitis Plan -Patient with findings of spontaneous bacterial peritonitis -Continue Rocephin -Afebrile, white count normal -Consider repeat paracentesis if febrile or elevation of WBC -Culture not obtained on prior paracentesis 2. Cirrhosis of liver Plan -Stable -Ammonia level within normal limits, less than 10 -Persistent hyperbilirubinemia -Continue present therapy with rifaximin, lactulose, diuretics, and propranolol -Monitor 3. Anxiety and depression Plan -Stable -Monitor 4. Hyponatremia syndrome Status Acute Onset Date Unknown Plan -Patient with findings of hyponatremia -Mild, sodium 134 -Monitor -No fluid restriction at this time 5. Coagulopathy Status Chronic Onset Date Unknown Plan -Patient with findings of coagulopathy -Most likely secondary to cirrhosis -Monitor -No signs of active bleeding -Vitamin K 10 mg by mouth daily 3 days 6. Anemia Plan -Patient with slowly progressive anemia -H&H 7.8/22.6 (8.8/24.9-12/26/16) -Check iron profile, B12, folate -Patient with macrocytosis Current status: Fair, stable Anticipated discharge date: Anticipated discharge in 2 days Anticipated discharge placement: Home Patient care time: Time spent in chart review, patient interview, physical exam, CPOE, and care documentation: 25 minutes Visit to patient today: 1 Complexity of care: Moderate E&M Codes Rounding: Inpt-Moderate/88525
[2016-09-27 10:47] VITALS: BP 90/47
[2016-09-27 13:42] VITALS: BP 96/55
[2016-09-27 19:23] VITALS: BP 90/50
[2016-09-27 22:54] VITALS: BP 87/48
[2016-09-28] VITALS (11 sets, daily range): BP systolic 88–111; BP diastolic 46–64
--- NOTE | 2016-09-28 14:54 | Progress Note ---
Subjective General Pt seen and examined. 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 Constitutional Denies: Fever, Chills, Sweats, Weakness, Malaise, Other. Eyes Denies: Pain, Vision Change, Conjunctival Inflammation, Eyelid Inflammation, Redness, Other. Respiratory Denies: Cough, Dry, SOB w/exertion, Wheezing, Hemoptysis, Pleuritic Pain, Sputum , Other. Cardiovascular Denies: Chest Pain, Palpitations, Orthopnea, PND, Edema, Light-headedness, Other. Gastrointestinal Nausea, Abdominal Pain. Denies: Vomiting, Diarrhea, Constipation, Melena, Hematochezia, Other. Genitourinary Denies: Dysuria, Frequency, Incontinence, Hematuria, Retention, Other. Musculoskeletal Denies: Neck Pain, Shoulder Pain, Arm Pain, Back Pain, Hand Pain, Leg Pain, Foot Pain, Other. Skin Denies: Rash, Lesions, Jaundice, Bruising, Other. Physical Exam Vital Signs / I&Os Vital Signs Date Time Temp Pulse Resp B/P Pulse O2 O2 Flow FiO2 Ox Delivery Rate 09/28 1440 99.3 77 18 98/63 97 09/28 1420 99.1 81 18 97/46 96 Room Air 09/28 1020 99.0 81 18 97/57 97 Room Air 09/28 0835 75 09/28 0654 98.1 75 18 98/52 96 Room Air 09/28 0239 99.7 83 16 88/52 96 Room Air 09/28 0015 Room Air 0.0 09/27 2254 99.3 81 16 87/48 98 Room Air 09/27 2206 Room Air 09/27 2111 80 09/27 1923 99.1 78 16 90/50 99 Room Air I&O 09/27 0800 09/27 1600 09/28 0000 Intake Total 1320 1615 2302 Output Total 1240 1100 550 Balance 80 515 1752 General Appearance Alert, Oriented X3, No acute distress HEENT Atraumatic, EOMI, Moist mucous membranes Lungs Clear to auscultation Cardiovascular Regular rate and rhythm, No murmurs, gallops, rubs Abdomen Soft, - generalized tenderness - no masses appreciated - no overlying skin changes Extremities No clubbing, No edema, Normal pulses, Arturo's sign negative Skin No Significant Lesions Neurological Normal speech, Normal tone, Cranial nerves intact Psych/Mental Status Mood normal LAB Results Laboratory Tests 09/28 09/28 0535 1300 Chemistry Plasma Sodium (136 - 145 mmol/L) 134 Plasma Potassium (3.5 - 5.1 mmol/L) 3.9 Plasma Chloride (98 - 107 mmol/L) 102 CO2 (Enzymatic) (21 - 32 mmol/L) 23 BUN (7 - 18 mg/dL) 15 Creatinine (0.6 - 1.3 mg/dL) 1.4 Est GFR ( Amer) (mL/min) >60 Est GFR (Non-Af Amer) (mL/min) 57.99 Glucose (70 - 110 mg/dL) 97 Plasma Calcium (8.5 - 10.1 mg/dL) 8.2 Total Bilirubin (0.0 - 1.0 mg/dL) 6.9 AST (15 - 37 U/L) 47 ALT (12 - 78 U/L) 21 Alkaline Phosphatase (46 - 116 U/L) 131 Total Protein (6.4 - 8.2 g/dL) 5.5 Albumin (3.3 - 5.0 g/dL) 2.1 Hematology WBC (4.5 - 11.5 K/uL) 4.2 RBC (4.50 - 5.90 M/uL) 2.03 Hgb (13.5 - 17.5 gm/dL) 7.2 Hct (41.0 - 53.0 %) 20.8 Cancelled MCV (80 - 100 fL) 103 MCH (26 - 34 pg) 36 RDW (11.6 - 14.8 %) 15.1 Neut % (Auto) (50 - 75 %) 63 Lymph % (Auto) (25 - 40 %) 18 [place] % (Auto) (3 - 14 %) 13 Eos % (Auto) (0 - 4 %) 3 Baso % (Auto) (0 - 2 %) 1 Band Neutrophils % (0 - 8 %) 2 Metamyelocytes % (0 - 1 %) 0 Myelocytes (0 - 1 %) 0 Other Cell Type 0 Plt Count, EDTA (150 - 400 K/uL) 58 RBC Morphology (82798 A) 1+ [place] CELLS PUBS MCHC (31 - 37 g/dL) 35 Assessment and Plan Problem List 1. Spontaneous bacterial peritonitis Plan - will continue with ceftriaxone - no need for repeat paracentesis - currently blood work is improving - will completel 7 day course 2. Cirrhosis of liver Plan -Continue present therapy with rifaximin, lactulose, diuretics, and propranolol 3. Anemia Plan - slowly downtrending hemoglobin - will transfuse 2 units now 4. Anxiety and depression 5. Coagulopathy Status Chronic Onset Date Unknown Plan - stable - will continue to trend once a week - will continue to trend platelet count lei
[2016-09-29 02:13] VITALS: BP 103/58
--- NOTE | 2016-09-29 05:51 | Progress Note ---
Subjective General Note Date: September 29, 2016 Admission Date: September 26, 2016 Hospital Day: 4 PCP: [facility] Status: Inpatient Advanced Directive: FULL CODE Room: 203-B Brief History: The patient is a 46-year-old white male with a significant past medical history of alcohol abuse/dependence, recurrent upper GI bleed, cirrhosis, who presented to [facility] emergency department on the day of admission secondary to complaints of abdominal pain, and poor appetite. [facility] ER evaluation was consistent with upper GI bleed with associated anemia and hypotension. Secondary to the above, the patient was admitted by Wade Pelayo for further evaluation and treatment. Subjective: Patient was seen and examined at bedside. Patient is reporting of intermittent abdominal pain, but showing improvement. Patient reports that he is already in his diet. Patient reports rash, falls. Patient reports that the reports. She reports that is walking. Maintaining adequate balance with support. Patient requests: Review of lab requests by Dr. Armando Roberts is not in the office this week. I was able to call Dr. Robertss partner; Dr Hill Bell MD. reviewed the findings of Dr. Alejandre; discussed patient's pending scheduled with transplant surgery. Reviewed melt score and recent hospitalization. Also discuss recent need for blood transfusion. Discussed the fact the patient received [address] Alejandre made mention that a CBC should be evaluated within a week after discharge. Patient should have the peritoneal procedure performed once again before discharge. Also discussed recommendations on continuing low-sodium diet and optimal diuretic. Physical Exam Vital Signs / I&Os Vital Signs Date Time Temp Pulse Resp B/P Pulse O2 O2 Flow FiO2 Ox Delivery Rate 09/29 0213 98.1 77 18 103/58 99 Room Air 0.0 09/28 2220 99.0 86 18 97/58 100 Room Air 09/28 2040 99.1 80 18 103/54 98 Room Air 09/288 80 09/28 1927 98.8 81 18 107/64 100 09/28 1828 99.3 83 18 103/60 99 Room Air 09/28 1745 99.5 86 18 111/64 100 Room Air 09/28 1548 99.3 81 18 104/64 99 09/28 1440 99.3 77 18 98/63 97 09/28 1420 99.1 81 18 97/46 96 Room Air 09/28 1020 99.0 81 18 97/57 97 Room Air 09/28 0835 75 09/28 0654 98.1 75 18 98/52 96 Room Air I&O 09/28 0800 09/28 1600 09/29 0000 Intake Total 7910 211 5945 Output Total 750 Balance 1700 60 1340 General Appearance Oriented X3 HEENT Normal exam (`), icteric sclera Lungs Clear to auscultation, Normal air movement Neck Supple Cardiovascular Normal S1 and S2 Abdomen Soft, No guarding, No masses, slight distention over previous days. Unappreciable fluid wave. Extremities No edema Skin No Rashes Psych/Mental Status Mental status normal, Mood normal LAB Results Laboratory Tests 09/28 09/29 09/29 09/29 1300 0500 0550 0550 Chemistry Plasma Sodium (136 - 145 mmol/L) 135 Plasma Potassium (3.5 - 5.1 mmol/L) 3.9 Plasma Chloride (98 - 107 mmol/L) 102 CO2 (Enzymatic) (21 - 32 mmol/L) 24 BUN (7 - 18 mg/dL) 12 Creatinine (0.6 - 1.3 mg/dL) 1.2 Est GFR ( Amer) (mL/min) >60 Est GFR (Non-Af Amer) (mL/min) >60 Glucose (70 - 110 mg/dL) 98 Plasma Calcium (8.5 - 10.1 mg/dL) 8.5 Total Bilirubin (0.0 - 1.0 mg/dL) 8.3 AST (15 - 37 U/L) 51 ALT (12 - 78 U/L) 30 Alkaline Phosphatase (46 - 116 U/L) 164 Total Protein (6.4 - 8.2 g/dL) 6.6 Albumin (3.3 - 5.0 g/dL) 2.4 Procalcitonin (0 - 0.5 ng/mL) <0.5 Hematology WBC (4.5 - 11.5 K/uL) 10.5 RBC (4.50 - 5.90 M/uL) 2.73 Hgb (13.5 - 17.5 gm/dL) 9.5 Hct (41.0 - 53.0 %) Cancelled Cancelled 27.4 MCV (80 - 100 fL) 100 MCH (26 - 34 pg) 35 RDW (11.6 - 14.8 %) 17.8 Neut % (Auto) (50 - 75 %) 58 Lymph % (Auto) (25 - 40 %) 19 [place] % (Auto) (3 - 14 %) 11 Eos % (Auto) (0 - 4 %) 6 Baso % (Auto) (0 - 2 %) 0 Band Neutrophils % (0 - 8 %) 6 Metamyelocytes % (0 - 1 %) 0 Myelocytes (0 - 1 %) 0 Other Cell Type 0 Plt Count, EDTA (150 - 400 K/uL) 76 PUBS MCHC (31 - 37 g/dL) 35 Assessment and Plan Problem List 1. Spontaneous bacterial peritonitis Plan Patient maintains third-generation cephalosporin ceftriaxone. Plan didn't change patient from the 2 by mouth over the next 24 hours. We'll plan to start patient on levofloxacillin at 500 mg daily. Patient has pending appointment with transplant surgery. We'll have a final paracentesis performed. This is at the recommendation of Dr. Alejandre,GI partner with Dr. Roberts. 2. Cirrhosis of liver Plan Decline in the hematocrit hemoglobin. Patient shouldn't receive 2 units packed red blood cells yesterday. Transfusion well-tolerated. Ammonia level is pending a normal range. Elevated total bili. Continue with the recommendations to see transplant surgery. Meld score 24. Continue with the present regimen of lactulose, Spiriva, lactone, diuretic and propanolol 3. Anxiety and depression Plan Monitoring. Behavioral therapies as an outpatient would be suggested. 4. Hyponatremia syndrome Status Acute Onset Date Unknown Plan History of hyponatremia, now with Current sodium at 134. Currently stable 5. Coagulopathy Status Chronic Onset Date Unknown Plan Monitor platelet levels. Daily platelet count. Give Platelets if the number drops below 50. 6. Anemia Plan Patient was given 2 units packed RBCs yesterday. Current H&H with hemoglobin 9.5, hematocrit of 27.4. Discuss recent need for blood transfusion; received 2 units packed RBCs. GI made mention that a CBC should be evaluated within a week after discharge. Current status: Fair, stable Anticipated discharge date: Anticipated discharge in 1-2 days Anticipated discharge placement: Home Patient care time: Time spent in chart review, patient interview, physical exam, CPOE, and care documentation: 25 minutes Visit to patient today: 1 Complexity of care: Moderate E&M Codes Rounding: Inpt-Moderate/[id number]
[2016-09-29 06:39] VITALS: BP 139/72
[2016-09-29 10:20] VITALS: BP 112/71
--- NOTE | 2016-09-29 16:38 | DIAGNOSTIC IMAGING REPORT ---
PROCEDURE: US ABDOMEN ULTRASOUND-LIMITED INDICATION: liver Ultra Sound; with doppler values TECHNIQUE: Paul scale and color Doppler sonographic images of the abdomen were obtained. COMPARISON: CT 09/25/2016. FINDINGS: Liver measures 16.2 cm with diffuse increased echogenicity, irregular contour and moderate ascites. Splenomegaly (19 cm). Cholecystectomy. Normal CBD measures 6 mm. Head and body the pancreas are normal. Pancreatic tail is obscured by bowel gas. Aorta and IVC are patent. Dilated portal vein measures 1.9 cm with hepatopetal flow. Normal right kidney measures 11.4 cm. IMPRESSION: 1. Cirrhosis with moderate ascites and splenomegaly 2. Cholecystectomy
[2016-09-29 17:25] VITALS: BP 108/57
[2016-09-29 22:29] VITALS: BP 89/50
[2016-09-30] VITALS (9 sets, daily range): BP systolic 81–110; BP diastolic 46–68
--- NOTE | 2016-09-30 07:27 | Progress Note ---
Subjective General The patient is a 46-year-old white male with a significant past medical history of alcohol abuse/dependence, recurrent upper GI bleed, cirrhosis, who presented to [facility] emergency department on the day of admission secondary to complaints of abdominal pain, and poor appetite. [facility] ER evaluation was consistent with upper GI bleed with associated anemia and hypotension. Secondary to the above, the patient was admitted by Wade Pelayo for further evaluation and treatment. Subjective: Patient was seen and examined at bedside. Patient was sleeping during initial visit. Patient was able to get back down to the radiology Center. Patient had more than a liter taken off. The fluid was clear, geraldo. Cultures were sent. Patient requests: Review of lab requests by Dr. Roberts Physical Exam Vital Signs / I&Os Vital Signs Date Time Temp Pulse Resp B/P Pulse O2 O2 Flow FiO2 Ox Delivery Rate 09/30 0710 98.2 68 18 89/55 97 Room Air 09/30 0209 97.9 66 16 101/59 90 Room Air 09/29 2229 98.1 65 18 89/50 95 Room Air 09/29 2052 76 09/29 1725 98.6 73 18 108/57 100 09/29 1716 72 09/29 1700 Room Air 09/29 1020 98.1 73 18 112/71 98 Room Air I&O 09/29 0800 09/29 1600 09/30 0000 Intake Total 1432 1132 Output Total 1300 Balance 132 1132 General Appearance jaundice is fatigued, tired HEENT icteric sclerae Lungs Clear to auscultation Cardiovascular Normal S1 and S2 Abdomen Soft Assessment and Plan Problem List 1. Spontaneous bacterial peritonitis Plan We'll start on Levaquin oral. Patient will be prepped for discharge tomorrow. Patient will need to have good follow-up with his primary care provider along with GI. Patient is also being prepped for the transplant surgeon clinic visit. Patient was tapped once again. Peritoneal fluid was removed. Cultures are sent. We'll wait for pending microbiology, cytology 2. Cirrhosis of liver Plan Chronic changes of liver secondary to alcohol. Followed by gastroenterology and by transplant surgery. 3. Anemia Plan Patient's received 2 units of blood during during this hospital stay. Patient's had mild troponin is hemoglobin over the past 24 hours. We'll monitor her 4. Coagulopathy Status Chronic Onset Date Unknown Plan Decrease in platelet count; monitoring levels. 5. Anxiety and depression Plan Moderate degree of anxiety, depression. This is a reflection of disease process. Current status: Stable. Poor Anticipated discharge date: 10/01/2016 Anticipated discharge placement: Home Patient care time: Time spent in chart review, patient interview, physical exam, CPOE, and care documentation: 25 minutes Visit to patient today: 2 Complexity of care: Moderate
--- NOTE | 2016-09-30 15:55 | DIAGNOSTIC IMAGING REPORT ---
PROCEDURE: US PARACENTESIS INDICATION: Ascites. Bacterial peritonitis. COMPARISON: Comparison is made abdominal ultrasound 09/29/2016. TECHNIQUE: Informed consent was obtained and the patient was advised of the usual risks and complications including infection, bleeding and allergy. Supine position. PROCEDURE/FINDINGS: Following sterile preparation and 1% lidocaine local anesthetic, ultrasound guidance was utilized to place a 16-gauge angiocatheter in right latter abdomen. 1,000 ml of clear geraldo fluid was aspirated and sent for laboratory studies as requested (Gram stain culture, cell count differential, protein, glucose, LDH, cytology). The patient tolerated the procedure well and was transferred back to the floor in satisfactory condition with instructions to call for any untoward symptoms. IMPRESSION: 1. Successful ultrasound-guided diagnostic/therapeutic paracentesis (1,000 ml fluid). 2. Laboratory studies are pending.
[2016-10-01 02:46] VITALS: BP 114/62
--- NOTE | 2016-10-01 06:50 | Progress Note ---
Subjective General Note Date: October 01, 2016 Admission Date: September 26, 2016 Hospital Day: 7 PCP: [facility] Status: Inpatient Advanced Directive: FULL CODE Room: 203-B The patient is a 46-year-old white male with a significant past medical history of alcohol abuse/dependence, recurrent upper GI bleed, cirrhosis, who presented to [facility] emergency department on the day of admission secondary to complaints of abdominal pain, and poor appetite. [facility] ER evaluation was consistent with upper GI bleed with associated anemia and hypotension. Secondary to the above, the patient was admitted by Wade Pelayo for further evaluation and treatment. Subjective: Patient is having generalized improvement. Patient tolerated procedure yesterday. He had nearly a liter taken off his belly yesterday. Fluid was sampled and clear. Patient states that he is feeling better today. He is not sure of his walking. Patient is able to transport himself without concern. Patient requests: Discharged home Physical Exam Vital Signs / I&Os Vital Signs Date Time Temp Pulse Resp B/P Pulse O2 O2 Flow FiO2 Ox Delivery Rate 10/01 0246 98.4 74 14 114/62 99 Room Air 09/30 2235 98.8 81 15 109/68 98 Room Air 09/30 2118 86 09/30 1940 Room Air 09/30 1755 98.8 86 18 110/68 97 09/30 1411 98.4 72 18 110/50 100 09/30 1359 68 09/30 1108 97.9 65 18 85/53 99 09/30 1103 98.2 66 18 93/59 97 09/30 1038 98.1 61 18 99/55 99 09/30 1017 98.1 64 18 104/63 100 09/30 0710 98.2 68 18 89/55 97 Room Air I&O 09/30 0800 09/30 1600 10/01 0000 Intake Total 629 196 0569 Output Total 0 Balance 378 431 0083 General Appearance Oriented X3, No acute distress HEENT EOMI, icteric sclera Lungs Clear to auscultation Neck Supple, No masses Cardiovascular Normal S1 and S2 Abdomen mildly distended abdomen, soft tenderness Extremities No clubbing, No edema Skin No Breakdown Neurological Normal gait, Cranial nerves intact Psych/Mental Status patient is lucid, LAB Results Laboratory Tests 10/01 0620 Chemistry Plasma Sodium (136 - 145 mmol/L) 140 Plasma Potassium (3.5 - 5.1 mmol/L) 3.9 Plasma Chloride (98 - 107 mmol/L) 108 CO2 (Enzymatic) (21 - 32 mmol/L) 22 BUN (7 - 18 mg/dL) 12 Creatinine (0.6 - 1.3 mg/dL) 1.3 Est GFR ( Amer) (mL/min) >60 Est GFR (Non-Af Amer) (mL/min) >60 Glucose (70 - 110 mg/dL) 126 Plasma Calcium (8.5 - 10.1 mg/dL) 8.1 Total Bilirubin (0.0 - 1.0 mg/dL) 5.6 AST (15 - 37 U/L) 44 ALT (12 - 78 U/L) 23 Alkaline Phosphatase (46 - 116 U/L) 142 Total Protein (6.4 - 8.2 g/dL) 5.5 Albumin (3.3 - 5.0 g/dL) 2.0 Coagulation INR (0.8 - 1.2) 1.7 Hematology WBC (4.5 - 11.5 K/uL) 4.7 RBC (4.50 - 5.90 M/uL) 2.31 Hgb (13.5 - 17.5 gm/dL) 8.1 Hct (41.0 - 53.0 %) 23.0 MCV (80 - 100 fL) 99 MCH (26 - 34 pg) 35 RDW (11.6 - 14.8 %) 17.4 Neut % (Auto) (50 - 75 %) 67 Lymph % (Auto) (25 - 40 %) 21 [place] % (Auto) (3 - 14 %) 5 Eos % (Auto) (0 - 4 %) 2 Baso % (Auto) (0 - 2 %) 1 Band Neutrophils % (0 - 8 %) 4 Metamyelocytes % (0 - 1 %) 0 Myelocytes (0 - 1 %) 0 Other Cell Type 0 Plt Count, EDTA (150 - 400 K/uL) 53 Anisocytosis (manual) 2+ [place] Cells 1+ PUBS MCHC (31 - 37 g/dL) 35 Assessment and Plan Problem List 1. Spontaneous bacterial peritonitis Plan Discussed the recommendations with GI. Patient will continue with levofloxacin 500 mg for the next 7 days. Patient will have follow-up with primary care provider along with the transplant surgeon. GI follow-up is recommended of the next 2-3 weeks. 2. Cirrhosis of liver Plan Cirrhotic liver secondary to alcohol. 3. Anemia Plan Anemia could be related to hemolysis secondary to blood loss. Patient has known varices. No sign of bleeding while inpatient. 4. Anxiety and depression Plan Management of anxiety depression. Patient should be enrolled in a counseling program. Patient should have disease modifying therapy to promote healthy living. Current status: Fair - Stable Anticipated discharge date: 10/01/2016 Anticipated discharge placement: Home Patient care time: Time spent in chart review, patient interview, physical exam, CPOE, and care documentation: 25 minutes Visit to patient today: 1 Complexity of care: Moderate E&M Codes Rounding: Inpt-Moderate/[id number]
--- NOTE | 2016-10-01 06:50 | Progress Note ---
Subjective General Note Date: October 01, 2016 Admission Date: September 26, 2016 Hospital Day: 7 PCP: [facility] Status: Inpatient Advanced Directive: FULL CODE Room: 203-B The patient is a 46-year-old white male with a significant past medical history of alcohol abuse/dependence, recurrent upper GI bleed, cirrhosis, who presented to [facility] emergency department on the day of admission secondary to complaints of abdominal pain, and poor appetite. [facility] ER evaluation was consistent with upper GI bleed with associated anemia and hypotension. Secondary to the above, the patient was admitted by Wade Pelayo for further evaluation and treatment. Subjective: Patient is having generalized improvement. Patient tolerated procedure yesterday. He had nearly a liter taken off his belly yesterday. Fluid was sampled and clear. Patient states that he is feeling better today. He is not sure of his walking. Patient is able to transport himself without concern. Patient requests: Discharged home Physical Exam Vital Signs / I&Os Vital Signs Date Time Temp Pulse Resp B/P Pulse O2 O2 Flow FiO2 Ox Delivery Rate 10/01 0246 98.4 74 14 114/62 99 Room Air 09/30 2235 98.8 81 15 109/68 98 Room Air 09/30 2118 86 09/30 1940 Room Air 09/30 1755 98.8 86 18 110/68 97 09/30 1411 98.4 72 18 110/50 100 09/30 1359 68 09/30 1108 97.9 65 18 85/53 99 09/30 1103 98.2 66 18 93/59 97 09/30 1038 98.1 61 18 99/55 99 09/30 1017 98.1 64 18 104/63 100 09/30 0710 98.2 68 18 89/55 97 Room Air I&O 09/30 0800 09/30 1600 10/01 0000 Intake Total 826 187 2796 Output Total 0 Balance 549 204 0638 General Appearance Oriented X3, No acute distress HEENT EOMI, icteric sclera Lungs Clear to auscultation Neck Supple, No masses Cardiovascular Normal S1 and S2 Abdomen mildly distended abdomen, soft tenderness Extremities No clubbing, No edema Skin No Breakdown Neurological Normal gait, Cranial nerves intact Psych/Mental Status patient is lucid, LAB Results Laboratory Tests 10/01 0620 Chemistry Plasma Sodium (136 - 145 mmol/L) 140 Plasma Potassium (3.5 - 5.1 mmol/L) 3.9 Plasma Chloride (98 - 107 mmol/L) 108 CO2 (Enzymatic) (21 - 32 mmol/L) 22 BUN (7 - 18 mg/dL) 12 Creatinine (0.6 - 1.3 mg/dL) 1.3 Est GFR ( Amer) (mL/min) >60 Est GFR (Non-Af Amer) (mL/min) >60 Glucose (70 - 110 mg/dL) 126 Plasma Calcium (8.5 - 10.1 mg/dL) 8.1 Total Bilirubin (0.0 - 1.0 mg/dL) 5.6 AST (15 - 37 U/L) 44 ALT (12 - 78 U/L) 23 Alkaline Phosphatase (46 - 116 U/L) 142 Total Protein (6.4 - 8.2 g/dL) 5.5 Albumin (3.3 - 5.0 g/dL) 2.0 Coagulation INR (0.8 - 1.2) 1.7 Hematology WBC (4.5 - 11.5 K/uL) 4.7 RBC (4.50 - 5.90 M/uL) 2.31 Hgb (13.5 - 17.5 gm/dL) 8.1 Hct (41.0 - 53.0 %) 23.0 MCV (80 - 100 fL) 99 MCH (26 - 34 pg) 35 RDW (11.6 - 14.8 %) 17.4 Neut % (Auto) (50 - 75 %) 67 Lymph % (Auto) (25 - 40 %) 21 [place] % (Auto) (3 - 14 %) 5 Eos % (Auto) (0 - 4 %) 2 Baso % (Auto) (0 - 2 %) 1 Band Neutrophils % (0 - 8 %) 4 Metamyelocytes % (0 - 1 %) 0 Myelocytes (0 - 1 %) 0 Other Cell Type 0 Plt Count, EDTA (150 - 400 K/uL) 53 Anisocytosis (manual) 2+ [place] Cells 1+ PUBS MCHC (31 - 37 g/dL) 35 Assessment and Plan Problem List 1. Spontaneous bacterial peritonitis Plan Discussed the recommendations with GI. Patient will continue with levofloxacin 500 mg for the next 7 days. Patient will have follow-up with primary care provider along with the transplant surgeon. GI follow-up is recommended of the next 2-3 weeks. 2. Cirrhosis of liver Plan Cirrhotic liver secondary to alcohol. 3. Anemia Plan Anemia could be related to hemolysis secondary to blood loss. Patient has known varices. No sign of bleeding while inpatient. 4. Anxiety and depression Plan Management of anxiety depression. Patient should be enrolled in a counseling program. Patient should have disease modifying therapy to promote healthy living. Current status: Fair - Stable Anticipated discharge date: 10/01/2016 Anticipated discharge placement: Home Patient care time: Time spent in chart review, patient interview, physical exam, CPOE, and care documentation: 25 minutes Visit to patient today: 1 Complexity of care: Moderate E&M Codes Rounding: Inpt-Moderate/[id number]
[2016-10-01 06:52] VITALS: BP 97/58
--- NOTE | 2016-10-01 06:53 | Discharge Summary ---
Discharge Summary Report Admit Date 09/26/16 Discharge Date 10/01/16 Admission Diagnosis 1. Spontaneous bacterial peritonitis 2. Cirrhosis of liver 3. Anxiety and depression 4. Hyponatremia syndrome 5. Coagulopathy 6. Anemia Discharge Diagnosis 1. Spontaneous bacterial peritonitis 2. Cirrhosis of liver 3. Anxiety and depression 4. Hyponatremia syndrome 5. Coagulopathy 6. Anemia Brief History 46-year-old white male with a significant past medical history of alcohol abuse /dependence, recurrent upper GI bleed, cirrhosis, who presented to [facility] emergency department on the day of admission secondary to complaints of abdominal pain, and poor appetite. [facility] ER evaluation was consistent with upper GI bleed with associated anemia and hypotension. Secondary to the above, the patient was admitted by Wade Pelayo for further evaluation and treatment. The history of present illness began more than 2 days prior to the day of admission . The patient began experiencing worsening abdominal pain associated dark stools and dark urine. The peritoneal fluid content contained over thousand WBCs with the appearance of purulence. Patient was then admitted to general medicine for further follow-up. He reports that he had his last alcoholic beverage more than 14 months ago. [facility] ER evaluation showed the patient to have abdominal pain, low-grade fever, anxiety, depression. Chronic anemia with an H&H of 8.8/24.9. Secondary to the above the patient was admitted with a diagnosis of alcohol induced cirrhosis, potential SBP, anemia, acute abdominal pain. Hospital Course Patient was admitted with with SBP. Patient was started on coverage. Coverage was narrowed as patient improved. Patient significantly improved under management. In the interim patient had a paracentesis performed in the ED. However cultures were not completely sent. The identity was not completely ascertained. Patient was next seen in the radiology department. There a liver ultrasound was performed with Dopplers. This is showing obstructive portal hypertension. This also showed moderate cirrhosis with ascites and splenomegaly. Discussed the options of care with gastroenterology. Dr. Roberts was out of town and therefore spoke to his partner. We discuss current events. In also reviewed recommendations on patient being seen as an outpatient by GI. Recommendations was for patient to be followed by primary care provider with a CBC within a week from discharge. Patient has a history of anemia and has been receiving multiple transfusion. Patient received 2 packed red blood cells on day 2 of his hospitalization. Patient's blood H&H normalized. Patient is also being followed on his platelet count. Last platelet count was 59. Last total bilirubin was 8.6 and his INR was 1.9. Patient received FFP and vitamin K. Patient was prepped for his discharge paracentesis. Patient received a paracentesis on a 4-5 this hospitalization. The fluid was sent to lab for cytology, Gram stain cell types of protein and LDH etc. Still awaiting final cultures on fluid. General Appearance Oriented X3 HEENT icteric sclera Lungs Normal air movement Cardiovascular Normal S1, Normal S2 Abdomen distended soft Neurological Cranial nerves 3-12 NL Discharge Instructions/Meds Patient was discharged home on oral antibiotic. Patient was initially started on ceftriaxone for SBP coverage. Patient was then discharged home on the levofloxacin. She should continue the levofloxacin for the next 10 days. Patient is scheduled to see outpatient transplant surgery in the next day or 2. Patient was discharged home with the intent the patient will be following up with his primary care provider, transferred surgery and his nuclear weapons specialist. Patient was happy to leave the shaw. Patient was told to return with worsening symptoms or go to the ER with emergent concerns. Needing follow-up on the cultures from the paracentesis Patient is follow-up with primary care provider patient is to have a CBC 1 week after discharge. This is to monitor his anemia numbers. Continue with the dicyclomine 20 mg 4 times per day, Lasix 20 mg daily., Lactulose 20 g 30 mg oral solution twice a day. Protonix 40 mg by mouth twice per day, prednisone 20 mg daily., Spironolactone 50 mg daily, Ursodiol 300 mg 2 caps 2 times daily, Xifaxan 500 mg 1 tab 2 times daily.
--- NOTE | 2016-10-01 06:53 | Discharge Summary ---
Discharge Summary Report Admit Date 09/26/16 Discharge Date 10/01/16 Admission Diagnosis 1. Spontaneous bacterial peritonitis 2. Cirrhosis of liver 3. Anxiety and depression 4. Hyponatremia syndrome 5. Coagulopathy 6. Anemia Discharge Diagnosis 1. Spontaneous bacterial peritonitis 2. Cirrhosis of liver 3. Anxiety and depression 4. Hyponatremia syndrome 5. Coagulopathy 6. Anemia Brief History 46-year-old white male with a significant past medical history of alcohol abuse /dependence, recurrent upper GI bleed, cirrhosis, who presented to [facility] emergency department on the day of admission secondary to complaints of abdominal pain, and poor appetite. [facility] ER evaluation was consistent with upper GI bleed with associated anemia and hypotension. Secondary to the above, the patient was admitted by Wade Pelayo for further evaluation and treatment. The history of present illness began more than 2 days prior to the day of admission . The patient began experiencing worsening abdominal pain associated dark stools and dark urine. The peritoneal fluid content contained over thousand WBCs with the appearance of purulence. Patient was then admitted to general medicine for further follow-up. He reports that he had his last alcoholic beverage more than 14 months ago. [facility] ER evaluation showed the patient to have abdominal pain, low-grade fever, anxiety, depression. Chronic anemia with an H&H of 8.8/24.9. Secondary to the above the patient was admitted with a diagnosis of alcohol induced cirrhosis, potential SBP, anemia, acute abdominal pain. Hospital Course Patient was admitted with with SBP. Patient was started on coverage. Coverage was narrowed as patient improved. Patient significantly improved under management. In the interim patient had a paracentesis performed in the ED. However cultures were not completely sent. The identity was not completely ascertained. Patient was next seen in the radiology department. There a liver ultrasound was performed with Dopplers. This is showing obstructive portal hypertension. This also showed moderate cirrhosis with ascites and splenomegaly. Discussed the options of care with gastroenterology. Dr. Roberts was out of town and therefore spoke to his partner. We discuss current events. In also reviewed recommendations on patient being seen as an outpatient by GI. Recommendations was for patient to be followed by primary care provider with a CBC within a week from discharge. Patient has a history of anemia and has been receiving multiple transfusion. Patient received 2 packed red blood cells on day 2 of his hospitalization. Patient's blood H&H normalized. Patient is also being followed on his platelet count. Last platelet count was 59. Last total bilirubin was 8.6 and his INR was 1.9. Patient received FFP and vitamin K. Patient was prepped for his discharge paracentesis. Patient received a paracentesis on a 4-5 this hospitalization. The fluid was sent to lab for cytology, Gram stain cell types of protein and LDH etc. Still awaiting final cultures on fluid. General Appearance Oriented X3 HEENT icteric sclera Lungs Normal air movement Cardiovascular Normal S1, Normal S2 Abdomen distended soft Neurological Cranial nerves 3-12 NL Discharge Instructions/Meds Patient was discharged home on oral antibiotic. Patient was initially started on ceftriaxone for SBP coverage. Patient was then discharged home on the levofloxacin. She should continue the levofloxacin for the next 10 days. Patient is scheduled to see outpatient transplant surgery in the next day or 2. Patient was discharged home with the intent the patient will be following up with his primary care provider, transferred surgery and his net mobile developer. Patient was happy to leave the shaw. Patient was told to return with worsening symptoms or go to the ER with emergent concerns. Needing follow-up on the cultures from the paracentesis Patient is follow-up with primary care provider patient is to have a CBC 1 week after discharge. This is to monitor his anemia numbers. Continue with the dicyclomine 20 mg 4 times per day, Lasix 20 mg daily., Lactulose 20 g 30 mg oral solution twice a day. Protonix 40 mg by mouth twice per day, prednisone 20 mg daily., Spironolactone 50 mg daily, Ursodiol 300 mg 2 caps 2 times daily, Xifaxan 500 mg 1 tab 2 times daily.
[2016-10-01 10:58] VITALS: BP 100/63
[2016-10-01] MEDS ORDERED: LEVOFLOXACIN500 MG PO (11:33)
[2016-10-01] MEDS ORDERED: PREDNISONE5 MG PO (11:34)
[2016-10-01] MEDS ORDERED: FERROUS SULFATE PO (11:34)
--- NOTE | 2016-10-01 11:35 | Provider's Discharge Care Plan ---
Problem, Goal, Plan Problem List 1. Spontaneous bacterial peritonitis Goals: Diagnostic testing, Improve disease control, Prevent disease progress, Therapeutic intervention Instructions: Follow up as needed 2. Cirrhosis of liver Goals: Diagnostic testing, Improve disease control, Learn about illness Instructions: Follow up as directed 3. Anxiety and depression Goals: Improved health/wellness, Learn about illness Instructions: Follow up as directed, Take meds as directed 4. Anemia Goals: Improve function, Therapeutic intervention, CBC 1 week from discharge with PCP Instructions: Take meds as directed 5. Hyponatremia syndrome Goals: Improve disease control, Improve function Instructions: Take meds as directed 6. Coagulopathy Goals: Diagnostic testing, monitor platelets Instructions: Follow up as directed
== END 2016-10-01 13:20 | disposition home or self-care (01) | DRG 229 ==
LOC: ED SRH 18:45 → TRANS SRH 09-26 00:54 → ACUTE2 SRH 09-26 00:54 → TRANS SRH 09-26 00:54 → ACUTE2 SRH 09-26 02:08
PROVIDERS: ADMIT Pediatrics
PROC: 30233N1 Transfusion of Nonautologous Red Blood Cells into Peripheral Vein, Percutaneous Approach (ICD-10-PCS; 2016-09-28)
PROC: 0W9G3ZX Drainage of Peritoneal Cavity, Percutaneous Approach, Diagnostic (ICD-10-PCS; principal; 2016-09-30)
PROC: 30233K1 Transfusion of Nonautologous Frozen Plasma into Peripheral Vein, Percutaneous Approach (ICD-10-PCS; 2016-09-30)
DX: K65.2 Spontaneous bacterial peritonitis (principal); K70.31 Alcoholic cirrhosis of liver with ascites; K70.40 Alcoholic hepatic failure without coma; K76.6 Portal hypertension; I85.10 Secondary esophageal varices without bleeding; F10.21 Alcohol dependence, in remission; E87.1 Hypo-osmolality and hyponatremia; D64.9 Anemia, unspecified; D68.4 Acquired coagulation factor deficiency; F41.9 Anxiety disorder, unspecified; F32.9 Major depressive disorder, single episode, unspecified; Z87.891 Personal history of nicotine dependence
CPT/HCPCS: 82445; 83704; 90001; 90065; 90074; 90100; 90127; 90133; 90155; 90309; 90469; 90470; 91004; 91162; 91163; 91295; 91504; 91505; 91544; 91588; 91643; 92060; 92070; 92510; 92530; 92540; 92652; 92653; 92668; 92670; 92680; 93004; 94060; 95029; 95030; 95059; 95061; 99307

== ENCOUNTER 2016-10-27 17:31 | Emergency (ER) | payer OTHER ==
[~2016-10-27 17:31] MED LIST: ALDACTONE25 MG PO; DICYCLOMINE HCL20 MG PO; FERROUS SULFATE PO; FUROSEMIDE20 MG PO; LACTULOSE PO; LEVOFLOXACIN500 MG PO; PANTOPRAZOLE SO40 MG PO; PREDNISONE5 MG PO; PROPRANOLOL HCL10 MG PO; URSODIOL300 MG PO; XIFAXAN550 MG PO
--- NOTE | 2016-10-27 21:34 | ED ORDER SUMMARY ---
..... Patient: MIRANDA SHANKS OrderSheet [facility] VisitID: [id number] [place] [address] 46y, M Registration Date/Time: 10/27/2016 ORDER SHEET Weight: 104.3 kg (stated) Allergies: Penicillins GENERAL ORDERS: CBC w Diff Urgent (18:10/27/2016 Gab Schultz) (Ack 18:28 LMuller) (18:28 LMuller) CMP Urgent (18:10/27/2016 Gab Schultz) (Ack 18:28 LMuller) (18:28 LMuller) UA-Culture if indicated Urgent (18:10/27/2016 Gab Schultz) (Ack 18:28 LMuller) (18:28 LMuller) PT with INR Urgent (18:10/27/2016 Gab Schultz) (Ack 18:28 LMuller) (18:28 LMuller) PTT Urgent (18:10/27/2016 Gab Schultz) (Ack 18:28 LMuller) (18:28 LMuller) Lipase Urgent (18:10/27/2016 Gab Schultz) (Ack 18:28 LMuller) (18:28 LMuller) Lactate, Serum Urgent (18:10/27/2016 Gab Schultz) (Ack 18:28 LMuller) (19:39 EHassan R.N.) Ammonia Level Urgent (18:10/27/2016 Gab Schultz) (Ack 18:28 LMuller) (18:28 LMuller) Pulse oximeter (18:10/27/2016 Gab Schultz) (Ack 18:28 LMuller) (18:29 LMuller) MEDICATION ORDERS: GI Cocktail WHITE PO 30 mL (NOW) (20:38 10/27/2016 Gba Schultz) (20:51 EHassan R.N.) IV FLUIDS: Morphine IV 4 mg (HIGH ALERT MEDICATION, NOW) (18:10/27/2016 Gab Schultz) (19:39 EHassan R.N.) IV Saline Lock (18:10/27/2016 Gab Schultz) (19:39 Naomi Mcgowan) ORDER SHEET NOTES: [Electronically signed by Rozina Parish R.N. (21:53 10/27/2016)] [Electronically signed by Jay Suarez Dr. (04:37 11/03/2016)] [Electronically locked/signed by Rozina Parish R.N. (:53 10/27/2016)]
--- NOTE | 2016-10-27 21:34 | ED CLINICAL REPORT ---
Clinical Report - Physicians/Mid Levels [facility] [address] [place] [address] 10/27/2016 17:32 Patient: MIRANDA SHANKS Time Seen: 1811. Arrived- By private vehicle. Historian- patient. HISTORY OF PRESENT ILLNESS Chief Complaint: ABDOMINAL PAIN. At its maximum, severity described as moderate. When seen in the E.D., severity described as moderate. No radiation. It is described as located in the left upper quadrant. This started past few days and is still present and worsening. It was abrupt in onset and has been constant but is not gone now. The patient has had nausea and vomiting. No loss of appetite or diarrhea. No additional abdominal pain. (on lactulose). No recent travel. Similar symptoms previously: Many times. Recent medical care: Not recently seen/assessed. REVIEW OF SYSTEMS No constipation, black stools, hematemesis, bloody stools or skin rash. All systems otherwise negative, except as recorded above. PAST HISTORY See nurses notes. Medications: Gabapentin Oral 100 mg, 3x a day. Dicyclomine HCl Oral (Tablet 20 mg) 1 tablet, 4x a day. Furosemide Oral (Tablet 20 mg) 1 tablet, daily. Lactulose Oral (Solution 20 gm/30mL), 3x a day. Pantoprazole Sodium Oral (Tablet Delayed Release 40 mg) 1 tablet, daily. Propranolol HCl Oral (Tablet 10 mg) 1 tablet, 2x a day. Spironolactone Oral (Tablet 50 mg) 1 tablet, daily. Ursodiol Oral (Capsule 300 mg) 2 capsules, 2 times daily. Xifaxan Oral (Tablet 550 mg) 1 tablet, 2 times daily. Allergies: Penicillins. SOCIAL HISTORY Never smoker. Alcohol use. Patient is a recovering alcoholic. No drug use. No recent travel. Is a local resident. FAMILY HISTORY Negative. ADDITIONAL NOTES The nursing notes have been reviewed. PHYSICAL EXAM Vital Signs: 10/27/2016 17:41 BP: 130/75. HR: 62. RR: 18. O2 saturation: 99%. Temp: 99.7 F. Pain level now: 10/10. Blood pressure normal. Oxygen saturation normal. Appearance: Alert. Oriented X3. No acute distress. Eyes: Pupils equal, round and reactive to light. Eyes normal inspection. No scleral icterus or pale conjunctivae. ENT: Ears normal. Nose normal. Pharynx normal. CVS: Normal heart rate and rhythm. Heart sounds normal. Pulses normal. Respiratory: No respiratory distress. Breath sounds normal. Chest nontender. LABS, X-RAYS, AND EKG Laboratory Tests: UA-Culture if indicated: (APOLLO: 10/27/2016 18:40) ( [facility] 10/27/2016 19:04) Final results Test Result Flag Units (Reference) URINE COLOR HAMMAD URINE APPEARANCE CLEAR URINE GLUCOSE NEGATIVE (NEGATIVE) URINE BILIRUBIN POSITIVE (NEGATIVE) URINE BILIRUBIN ICTOTEST POSITIVE (NEGATIVE) URINE KETONE NEGATIVE (NEGATIVE) URINE SPECIFIC GRAVITY 1.020 (1.010-1.030) URINE PH 6.0 (5.0-8.0) URINE PROTEIN NEGATIVE (NEGATIVE) URINE UROBILINOGEN 0.2 EU/dL (0.2-1.0) URINE NITRITE NEGATIVE (NEGATIVE) URINE BLOOD NEGATIVE (NEGATIVE) URINE LEUK ESTERASE NEGATIVE (NEGATIVE) URINE RBC RARE rbc/hpf (0-1) URINE WBC RARE wbc/hpf (0-1) URINE EPITHELIAL CELLS RARE EPI/hpf (0-5) URINE BACTERIA NONE SEEN (NONE SEEN) URINE COMMENT CULT NOT INDICATED URINE CULTURES ARE SET-UP BASED ON THE FOLLOWING CRITERIA:POSITIVE NITRITEPOSITIVE LEUKOCYTE ESTERASEGREATER THAN 10 WHITE BLOOD CELLSMODERATE (2+) OR GREATER BACTERIA CBC w Diff: (APOLLO: 10/27/2016 18:45) ( [facility] 10/27/2016 18:58) Final results Test Result Flag Units (Reference) WHITE BLOOD COUNT 8.5 K/uL (4.5-11.5) RED BLOOD COUNT 2.58 L M/uL (4.50-5.90) HEMOGLOBIN 9.3 L gm/dL (13.5-17.5) HEMATOCRIT 26.9 L % (41.0-53.0) MEAN CELL VOLUME 105 H fL (80-100) MEAN CORPUSCULAR HGB 36 H pg (26-34) MEAN CORPUSCULAR HGB CONC 34 g/dL (31-37) RED CELL DISTRIBUTION WIDTH 18.0 H % (11.6-14.8) PLATELET COUNT 77 L K/uL (150-400) NEUTROPHIL % 64.1 % (50-75) LYMPH % 17.1 L % (25-40) MONO % 11.9 % (3-14) EOSINOPHIL % 6.8 H % (0-4) BASOPHIL % 0.1 % (0-2) PT with INR: (APOLLO: 10/27/2016 18:45) ( [facility] 10/27/2016 19:15) Final results Test Result Flag Units (Reference) INR 1.7 H (0.8-1.2) Low Intensity Therapy: INR 1.5-2.0 PT range 18.5-23.1Mod.Intensity Therapy: INR 2.0-3.0 PT range 23.1-31.5High Intensity Therapy: INR 2.5-3.5 PT range 27.4-35.5High Intensity Therapy 2: INR 3.0-4.0 PT range 31.5-39.3 APTT 41 H SECONDS (24-34) Ammonia Level: (APOLLO: 10/27/2016 19:40) ( [facility] 10/27/2016 20:16) Final results Test Result Flag Units (Reference) AMMONIA 51 H umol/L (11-32) Lactate, Serum: (APOLLO: 10/27/2016 18:45) ( [facility] 10/27/2016 19:40) Final results Test Result Flag Units (Reference) LACTIC ACID 0.5 mmol/L (0.4-2.0) CMP: (APOLLO: 10/27/2016 18:45) ( [facility] 10/27/2016 19:24) Final results Test Result Flag Units (Reference) GLUCOSE 102 mg/dL (70-110) BUN 19 H mg/dL (7-18) CREATININE 1.2 mg/dL (0.6-1.3) Estimated GFR >60 mL/min Estimated GFR- >60 mL/min Note: Persistent reduction over 3 months in eGFR<60 mL/min/1.73 m2 defines CKD. Patients with eGFR values>=60 mL/min/1.73 m2 may also have CKD if evidence ofpersistent proteinuria. Additional information may be foundat www.kidney.org. SODIUM 138 mmol/L (136-145) POTASSIUM 4.3 mmol/L (3.5-5.1) CHLORIDE 105 mmol/L (98-107) CARBON DIOXIDE 25 mmol/L (21-32) CALCIUM 8.4 L mg/dL (8.5-10.1) TOTAL PROTEIN 7.0 g/dL (6.4-8.2) ALBUMIN 2.5 L g/dL (3.3-5.0) BILIRUBIN, TOTAL 8.1 H mg/dL (0.0-1.0) ALKALINE PHOSPHATASE 231 H U/L (46-116) AST (SGOT) 58 H U/L (15-37) ALT (SGPT) 32 U/L (12-78) LIPASE 170 U/L (73-393) . PROGRESS AND PROCEDURES Course of Care: The patient is a pleasant 46-year-old male presenting for evaluation of red upper quadrant abdominal pain. The patienthas a history of liver disease. Patient states that his meld score recently was 22. Patient states that he is trying to get on the transplant list. Patient reports that the liver disease secondary to alcoholism however has not had a drink for over 2 years. At this time differential diagnosis includes urinary tract infection, worsening liver function studies, hepatorenal syndrome, or abdominal pain secondary to distention from ascites. Patient is a non-eritoneal abdomen. Do not fill patient has spontaneous bacterial peritonitis at this time. Patient's workup was markable for the findings above. Patient with abnormal liver enzymes. Patient's calculated meld score was noted to be 22. This is consistent with patient's prior meld scores. No other abnormality noted on patient's workup. Patient without signs of hepatorenal syndrome. Symptoms here in the emergency department has improved significantly. Do not feel patient has spontaneous bacterial peritonitis. At this time feel the risks of peritoneal tap outweigh the benefits at this time. Patient continues to be nontoxic and is in no acute distress. Throughout patient's stay here in the emergency department he was noted to be resting in bed and in no acute distress. Patient has been pleasant and cooperative and appropriate throughout his stay here. Do not fill patient is admitted to the hospital or require further emergency department workup/evaluation. Patient encouraged to follow up with hi liver specialist and primary care Didn't mention the patient the likelihood of needing a For symptomatic improvement however at this time it is not indicated. MELD of 22. Disposition: Discharged. Condition: good. CLINICAL IMPRESSION Acute left upper quadrant abdominal pain. Moderate nausea with vomiting. Chronic alcoholic liver disease with cirrhosis. Acute gastritis (acute). Diabetes. INSTRUCTIONS Warnings: GENERAL WARNINGS: Return or contact your physician immediately if your condition worsens or changes unexpectedly, if not improving as expected, or if other problems arise. SPECIFICALLY, return if you develop pain, fever, vomiting, the inability to keep fluids down, blood in vomitus, blood in diarrhea, fainting or lightheadedness. Your Current Medications: CONTINUE TAKING THE FOLLOWING MEDICATIONS: Dicyclomine HCl Oral : Tablet 20 mg, 1 tablet 4x a day. Furosemide Oral : Tablet 20 mg, 1 tablet daily. Gabapentin Oral : 100 mg 3x a day. Lactulose Oral : Solution 20 gm/30mL, 3x a day. Pantoprazole Sodium Oral : Tablet Delayed Release 40 mg, 1 tablet daily. Propranolol HCl Oral : Tablet 10 mg, 1 tablet 2x a day. Spironolactone Oral : Tablet 50 mg, 1 tablet daily. Ursodiol Oral : Capsule 300 mg, 2 capsules 2 times daily. Xifaxan Oral : Tablet 550 mg, 1 tablet 2 times daily. Prescription Medications: Zofran (orally disintegrating tablets) 4 mg: take 1 orally. Dispense ten (10). No refill. Substitution is permissible. Pepcid 20 mg: take 1 orally every 12 hours for 10 days as needed for indigestion, upset stomach or heartburn. Dispense twenty (20). No refills. Substitution is permissible. morphine sulfate 15 mg tab IR. take one tab PO as needed for pain every 6 hours. Disp 8 tabs. Substitution allowed. No refills. Follow-up: Return to the emergency department as needed. Follow up with your doctor in three days. Reason for referral: recheck today's concerns. Summary of care provided to patient via paper. Screening today revealed the patient's blood pressure to be in the normal range. The patient should follow up with a primary care provider for blood pressure management. Understanding of the discharge instructions verbalized by patient. (Electronically signed by Jay Suarez Dr. 11/03/2016 4:37)
--- NOTE | 2016-10-27 21:34 | ED NURSING NOTES ---
Clinical Report - Nurses [facility]ly [facility] [address] [place] [address] 10/27/2016 17:32 Patient: MIRANDA SHANKS TRIAGE Triage time 1741 PM. Chief Complaint: ABDOMINAL PAIN, NAUSEA and VOMITING. Alert. No acute distress. --17:52 Rozina Parish R.N. 17:41 10/27/16. BP: 130/75. HR: 62. RR: 18. O2 saturation: 99% on room air. Temp: 99.7 F (oral). Pain level now: 03/17. --17:52 Rozina Parish R.N. Weight: 104.3 kg stated. Height/Length: 74 inches Per Patient. BMI: 29.5. --17:46 Rozina Parish R.N. Medications Dicyclomine HCl Oral (Tablet 20 mg) 1 tablet, 4x a day. Furosemide Oral (Tablet 20 mg) 1 tablet, daily. Lactulose Oral (Solution 20 gm/30mL), 3x a day. Pantoprazole Sodium Oral (Tablet Delayed Release 40 mg) 1 tablet, daily. Propranolol HCl Oral (Tablet 10 mg) 1 tablet, 2x a day. Spironolactone Oral (Tablet 50 mg) 1 tablet, daily. Ursodiol Oral (Capsule 300 mg) 2 capsules, 2 times daily. Xifaxan Oral (Tablet 550 mg) 1 tablet, 2 times daily. --17:43 Rozina Parish R.N. Gabapentin Oral 100 mg, 3x a day. --17:45 Rozina Parish R.N. Medication/allergy information source: the patient. --17:52 Rozina Parish R.N. Allergies Penicillins. --17:43 Rozina Parish R.N. History Arrived by private vehicle. Historian: patient. Unaccompanied. Primary physician (Dr. Tse). ( Pt states recovering alcoholic who is in the waiting list for a liver transplant who is in constant pain. Approximately 4 days pain began again but "this time is on the left lower and upper quadrant" SOB, has not been drained in about 1 month for his ascites. Pt has vomited daily for the last 4 days about 2-4 times (which is unusual for me). Called the [facility] Dr. Tse which was advised to come to the ED for further workup). Onset. (4 days). He has had vomiting (2 times). He has had abdominal pain. Treatment SAP DEVELOPER: None. SOCIAL HX: Alcohol use. Patient is a recovering alcoholic. (06/23/2015). No drug use. No recent travel. No infectious disease exposure. No known contact with a sick individual. ABUSE ASSESSMENT: No report of abuse. SELF HARM ASSESSMENT: A self harm assessment was performed. The patient answered "no" to the question "Do you have thoughts of harming or killing yourself?" and "Have you recently had thoughts about harming or killing others?". FALL RISK ASSESSMENT: Fall risk assessment completed. No fall risk identified. NUTRITIONAL RISK ASSESSMENT: The nutritional risk assessment revealed no deficiencies. FUNCTIONAL ASSESSMENT: Functional assessment: no impairments noted. LEARNING NEEDS ASSESSMENT: The learning needs assessment revealed no barriers. SKIN INTEGRITY ASSESSMENT: Skin integrity risk assessment completed. No skin integrity risk identified. --17:52 Rozina Parish R.N. PROBLEMS: Peritonitis. Suture Removal. Murmur. Esophageal ulcers. Gastric ulcer. Kidney problems. Liver failure. Alcoholism. --17:45 Rozina Parish R.N. ADDITIONAL SURGERIES: Carpal Tunnel Surgery. Cholecystectomy. Dental Surgery. Hernia Repair. --17:45 Rozina Parish R.N. PHYSICAL ASSESSMENT Ambulatory to room. GENERAL / NEURO / PSYCH: Alert. Oriented X 4. Appears anxious. HEENT: Mucous membranes are pink. RESPIRATORY: Breath sounds within normal limits. CVS: Capillary refill less than 2 seconds. GI / : The patient has had nausea. Abdomen soft and nontender. Bowel sounds within normal limits. EXTREMITIES: No lower extremity edema. SKIN: Skin is pale. Skin is warm and dry. --17:53 Rozina Parish R.N. NURSING PROGRESS NOTES The initial plan of care for this patient has been created This plan of care was discussed with the patient. Pulse oximeter and NIBP monitor placed on patient. Patient gowned. Reassurance given. Two patient identifiers checked. Call light placed in reach. Side rails up x 1. Bed placed in lowest position. Brakes of bed on. --17:53 Rozina Parish R.N. 19:00 10/27/16. BP: 115/55. HR: 82. RR: 16. O2 saturation: 100%. Pain level now: 02/15. --19:26 Rozina Parish R.N. Pulse oximeter and NIBP monitor placed on patient. Reassurance given. The patient is resting quietly. Overall patient status is the same- he states feels the same. GI / : The patient reports abdominal pain. Patient identifiers checked. Call light placed in reach. Side rails up x 1. Bed placed in lowest position. --19:26 Rozina Parish R.N. 19:24 10/27/2016 Site #1 started via IV in the left antecubital space with an 20g angiocath; one attempt. Blood drawn: rainbow set. Labeled in the presence of the patient. --19:39 Rozina Parish R.N. 19:39 10/27/2016 Morphine IVP 4 mg given over 1 minute(s) via site #1. Allergies verified, confirmed 5 rights and sedative warning given to the patient. IV patency established. IV site checked: no pain, redness, or swelling. IV flushed thoroughly pre- and post-medication administration. IVP given by RN. --19:39 Rozina Parish R.N. 20:51 10/27/2016 GI COCKTAIL WHITE (Simethicone) PO Oral Suspension 30 mL given. Allergies verified and confirmed 5 rights. --20:51 Rozina Parish R.N. 20:51 10/27/2016 Morphine IVP Response: no adverse reaction symptoms are the same. The patient feels the same. --20:51 Rozina Parish R.N. Pulse oximeter and NIBP monitor placed on patient; monitor alarms on. Reassurance given. The patient is calm and resting quietly. Overall patient status is the same- he states feels the same. GI / : The patient reports abdominal pain. Two patient identifiers checked. Call light placed in reach. Side rails up. Bed placed in lowest position. Brakes of bed on. --20:52 Rozina Parish R.N. 20:00 10/27/16. BP: 99/58 (regular adult cuff) taken on the left arm, via an automated monitor, while sitting. HR: 74. RR: 15. O2 saturation: 100% on room air. Pain level now: 01/15. --20:52 Rozina Parish R.N. DISPOSITION / DISCHARGE 21:15 10/27/16. BP: 107/60 (regular adult cuff) taken on the left arm, via an automated monitor, while sitting. HR: 76. RR: 15. O2 saturation: 98% on room air. Temp: 98 F. Pain level now: 09/15. --21:53 Rozina Parish R.N. Departure time: 2153 PM. Condition at departure: improved. The goals identified in the patient's plan of care were met. No learning barriers present. Discharge instructions provided and reviewed with the patient. Reviewed warnings (s/s of sob ascites). Reviewed medication(s) side effects, precautions, dosing and course information. Prescription(s) given to the patient. Patient verbalized understanding. Written instructions provided in Swedish. No treatment instructions or referrals given to the patient. The patient was discharged by the physician. He was discharged home and unaccompanied at time of discharge. He left the Emergency Department ambulatory and via private vehicle. Patient driving. FALL RISK ASSESSMENT: Fall risk assessment completed. No fall risk identified. --21:53 Rozina Parish R.N. 21:28 10/27/2016 GI COCKTAIL WHITE PO Response: no adverse reaction pain is improving. Symptoms have improved the patient feels the same. --21:53 Rozina Parish R.N. 21:45 10/27/2016 Site #1 removed upon discharge. Manual pressure, pressure dressing, bandaid and bandage applied. --21:52 Rozina Parish R.N. Locked/Released at 10/27/2016 21:53 by Rozina Parish R.N.
--- NOTE | 2016-10-27 21:34 | ED ORDER SUMMARY ---
..... Patient: MIRANDA SHANKS OrderSheet [facility] VisitID: [id number] [place] [address] 46y, M Registration Date/Time: 10/27/2016 ORDER SHEET Weight: 104.3 kg (stated) Allergies: Penicillins GENERAL ORDERS: CBC w Diff Urgent (18:10/27/2016 Gab Schultz) (Ack 18:28 LMuller) (18:28 LMuller) CMP Urgent (18:10/27/2016 Gab Schultz) (Ack 18:28 LMuller) (18:28 LMuller) UA-Culture if indicated Urgent (18:10/27/2016 Gab Schultz) (Ack 18:28 LMuller) (18:28 LMuller) PT with INR Urgent (18:10/27/2016 Gab Schultz) (Ack 18:28 LMuller) (18:28 LMuller) PTT Urgent (18:10/27/2016 Gab Schultz) (Ack 18:28 LMuller) (18:28 LMuller) Lipase Urgent (18:10/27/2016 Gab Schultz) (Ack 18:28 LMuller) (18:28 LMuller) Lactate, Serum Urgent (18:10/27/2016 Gab Schultz) (Ack 18:28 LMuller) (19:39 EHassan R.N.) Ammonia Level Urgent (18:10/27/2016 Gab Schultz) (Ack 18:28 LMuller) (18:28 LMuller) Pulse oximeter (18:10/27/2016 Gab Schultz) (Ack 18:28 LMuller) (18:29 LMuller) MEDICATION ORDERS: GI Cocktail WHITE PO 30 mL (NOW) (20:38 10/27/2016 Gab Schultz) (20:51 EHassan R.N.) IV FLUIDS: Morphine IV 4 mg (HIGH ALERT MEDICATION, NOW) (18:10/27/2016 Gab Schultz) (19:39 EHassan R.N.) IV Saline Lock (18:10/27/2016 Gab Schultz) (19:39 Namoi Mcgowan) ORDER SHEET NOTES: [Electronically signed by Rozina Parish R.N. (21:53 10/27/2016)] [Electronically signed by Jay Suarez Dr. (04:37 11/03/2016)] [Electronically locked/signed by Rozina Parish R.N. (:53 10/27/2016)]
--- NOTE | 2016-11-03 04:37 | ED MAR SUMMARY ---
..... Medication Administration Record [facility] [address] [place] [address] Patient: MIRANDA SHANKS Visit ID: [id number] 46y, M Weight: 104.3 kg Height/Length: 74 in BMI: 29.5 ALLERGIES: Penicillins Given 19:39 10/27/2016 Rozina Parish, RLmN. Medication Administered: MORPHINE [IVP], Dose: 4 mg IVP over 1 minute(s), Site: #1 left AC. Medication Ordered: Morphine IV 4 mg (HIGH ALERT MEDICATION, NOW). Given 20:51 10/27/2016 Rozina Parish, R.N. Medication Administered: GI COCKTAIL WHITE [PO] (SIMETHICONE), Dose: 30 mL Oral Suspension PO. Medication Ordered: GI Cocktail WHITE PO 30 mL (NOW).
--- NOTE | 2016-11-03 04:37 | ED DISCHARGE INSTRUCTIONS ---
Patient: MIRANDA SHANKS General Instructions [facility] VisitID: [id number] [place] [address] 46y, M Registration Date/Time: 10/27/2016 Acute left upper quadrant abdominal pain. Moderate nausea with vomiting. Chronic alcoholic liver disease with cirrhosis. Acute gastritis (acute). Diabetes. INSTRUCTIONS Warnings: GENERAL WARNINGS: Return or contact your physician immediately if your condition worsens or changes unexpectedly, if not improving as expected, or if other problems arise. SPECIFICALLY, return if you develop pain, fever, vomiting, the inability to keep fluids down, blood in vomitus, blood in diarrhea, fainting or lightheadedness. Your Current Medications: CONTINUE TAKING THE FOLLOWING MEDICATIONS: Dicyclomine HCl Oral : Tablet 20 mg, 1 tablet 4x a day. Furosemide Oral : Tablet 20 mg, 1 tablet daily. Gabapentin Oral : 100 mg 3x a day. Lactulose Oral : Solution 20 gm/30mL, 3x a day. Pantoprazole Sodium Oral : Tablet Delayed Release 40 mg, 1 tablet daily. Propranolol HCl Oral : Tablet 10 mg, 1 tablet 2x a day. Spironolactone Oral : Tablet 50 mg, 1 tablet daily. Ursodiol Oral : Capsule 300 mg, 2 capsules 2 times daily. Xifaxan Oral : Tablet 550 mg, 1 tablet 2 times daily. Prescription Medications: Zofran (orally disintegrating tablets) 4 mg: take 1 orally. Dispense ten (10). No refill. Substitution is permissible. Pepcid 20 mg: take 1 orally every 12 hours for 10 days as needed for indigestion, upset stomach or heartburn. Dispense twenty (20). No refills. Substitution is permissible. morphine sulfate 15 mg tab IR. take one tab PO as needed for pain every 6 hours. Disp 8 tabs. Substitution allowed. No refills. Follow-up: Return to the emergency department as needed. Follow up with your doctor in three days. Reason for referral: recheck today's concerns. Summary of care provided to patient via paper. Screening today revealed the patient's blood pressure to be in the normal range. The patient should follow up with a primary care provider for blood pressure management. Understanding of the discharge instructions verbalized by patient. ADDITIONAL INFORMATION Abdominal Pain,Uncertain Cause [Male] Based on your visit today, the exact cause of your abdominalpain is not clear. Your exam and tests do not indicate a dangerous cause at this time. However, the signs of a serious problem may take more time to appear. Although your evaluation was reassuring today, sometimes early in the course of many conditions, exam and lab tests can appear normal. Therefore, it is important for you to watch for any new symptoms or worsening of your condition. Causes It may not be obvious what caused your symptoms. Pay attention to things that do seem to make your symptoms worse or better and discuss this with your doctor when you follow up. Diagnosis The evaluation of abdominal pain in the emergency department may onlyrequire an exam by the doctor or it may include blood, urine or imaging studies, depending on many factors. Sometimes exams and tests can identify a cause but in many cases, a clear cause is not found. Further testing at follow up visits may help to suggest a clear diagnosis. Home Care Rest as much as possible until your next exam. Try to avoid any medications (unless otherwise directed by your doctor), foods, activities, or other factors that you may have contributed to your symptoms. Try to eat foods that you know that you have tolerated well in the past. Certain diets may be recommended for some conditions that cause abdominal pain. However, since the cause of your symptoms may not be clear, discuss your diet more with your primary care provider or specialist for further recommendations. Eating several small meals per day as opposed to 2 or 3 larger meals may help. Monitor closely for anything that may make your symptoms worse or better. Pay close attention to symptoms below that may indicate worsening of your condition. Follow Up and Precautions See your doctoras instructed or sooneror if your symptoms are not improving.In some cases, you may need more testing. When to Seek Medical Attention Contact your doctor or see medical attention ifany of the following occur: Pain is becoming worse You are unable to take your medications due to excessive vomiting Swelling of the abdomen Fever of 100.4F (38C) or higher, or as directed by your health care provider Blood in vomit or bowel movements (dark red or black color) Jaundice (yellow color of eyes and skin) New onset of weakness, dizziness or fainting New onset of chest, arm, back, neck or jaw pain Gastritis Versus Ulcer (No Antibiotic Tx) The symptoms of gastritis and peptic ulcer are very similar. Both can cause a dull ache or burning pain in the upper abdomen. Other symptoms include nausea, vomiting, loss of appetite, and belching or bloating. Blood in the vomit or stools (red or black) is a sign of bleeding in the stomach. This requires immediate medical attention. A Peptic Ulcer is an open sore in the lining of the stomach or duodenum (upper intestine). The most common cause of peptic ulcer disease is a bacterial infection (H pylori) in the stomach. Another common cause is taking anti-inflammatory medications (such as ibuprofen, prednisone, and aspirin). Gastritis is an irritation of the stomach lining. It can be acute (recent) or chronic (lasting a long time). Gastritis can be caused by overuse of alcohol or anti-inflammatory medications (such as aspirin, ibuprofen, prednisone). H pyloriinfection can also cause chronic gastritis. Tests for H pyloriare used to screen for bacterial infection. If no infection is found, ulcer and gastritis can be treated by stopping the cause, such as anti-inflammatory medications, alcohol, caffeine, and tobacco, and treating with antacids plus an acid nelia medication. If H pylori infection is found, antibiotics will be prescribed along with an acid nelia. Persons 55 years and older may undergo other tests before treatment is started. Two common tests are used to evaluate your symptoms. An upper GI series is an x-ray taken after you drink a chalky liquid called barium. This coats the stomach and allows an ulcer to show up on the x-ray. Another test is called endoscopy during which a long thin tube called an endoscope is passed down your throat to the stomach. A camera at the end of the scope allows the doctor to view inside the stomach to check the cause of your symptoms. Home Care: Take the prescribed acid nelia medication for the full course of treatment even if you begin to feel better sooner. This medication can take up to several days to fully control your symptoms. If you cant afford the prescribed medication, you can try [id number]-bml-[id number] acid blockers, such as Pepcid AC, Tagamet, Zantac, or Aciphex. If these do not relieve your symptoms, a stronger acid-nelia can be tried, such as Prilosec OTC. If you have been prescribed an antibiotic to treat H pyloriinfection, finish the full course of medication. Do so even if you begin to feel better sooner. If you stop the medication too soon, the infection can return and be harder to treat. You can use antacids, such as Tums, Rolaids, Mylanta, or Maalox, for pain. This will be useful the first few days after starting acid blockers when the blockers havent started working yet. Follow the directions on the label. Liquid antacids may work better than tablets. Note that antacids can interfere with absorption of certain medications. Specifically, do not take Tagamet (cimetidine), Zantac (ranitidine), or Carafate (sucralfate) within 1 hour of taking an antacid. Talk with your pharmacist if you have any questions. Although foods do not cause an ulcer, symptoms can be worsened by certain foods. Limit or avoid fatty, fried, and spicy foods, as well as coffee, chocolate, mint, and foods with high acid content such as tomatoes and citrus fruit and juices (orange, grapefruit, lemon). Avoid alcohol, caffeine, and tobacco, which can delay healing. Avoid aspirin and anti-inflammatory medications such as ibuprofen (Advil, Motrin) and naproxen (Naprosyn, Aleve). Acetaminophen (Tylenol) is safe to use. Do not take more than the amount listed on the label. Follow Up with your doctor or as advised. Further testing may be needed. If you do not begin to improve over the next 4 days, contact your doctor. If you had tests, youll be notified of any new findings that affect your care. Get Prompt Medical Attention if any of the following occur: Stomach pain gets worse or moves to the lower right abdomen (appendix area) Chest pain appears or gets worse, or spreads to the back, neck, shoulder, or arm Frequent vomiting (cant keep down liquids) Blood in the stool or vomit (red or black in color) Feeling weak or dizzy, fainting, or trouble breathing Fever of 100.4F (38C) or higher, or as directed by your healthcare provider Cirrhosis Of The Liver The liver is located on the right side of your abdomen, just below the rib cage. The liver performs many essential functions including: Filters toxins from the blood Makes bile to aid digestion and absorption of vitamins from the GI tract Makes clotting factors that stop bleeding if you injure yourself Viral infections and toxins can cause permanent injury to the liver, called CIRRHOSIS. The most common cause of cirrhosis in the [place] is Hepatitis C and alcohol abuse. Other causes include Hepatitis B, medication side effects and others. The scarring that results from cirrhosis interferes with normal liver function and can cause many complications, including: Leakage of fluid from the blood vessels. This can cause pooling of fluid in the abdomen (ascites) or in the legs (edema). Inability of blood to form clots normally. This can lead to excess bleeding. Bleeding from blood vessels in the esophagus. This causes vomiting of blood or blood in the stool. Build-up of bile in the blood which causes a yellow color of the eyes and skin (jaundice). Build-up of toxins in the body which affect the brain and cause confusion. Treatment is aimed at taking care of the symptoms and preventing further liver damage. If your liver damage is from alcohol, quitting will slow the progress of the disease and may prevent further complications. If cirrhosis progresses and becomes life-threatening, liver transplant may be considered. If your liver damage is from Hepatitis B or C, treatments may be given to fight the virus. Home Care: Avoid medicines that can worsen liver damage such as acetaminophen (Tylenol). Your doctor will explain if any of the medicines you now take need to be changed. Talk to you doctor before taking mineral and vitamin supplements. Vitamin A, iron and copper can worsen liver damage. Severely limit alcohol use, or stop altogether. If you are alcoholic, seek professional help. Consider joining Alcoholics Anonymous for ongoing support. If you use IV drugs, you are at risk of Hepatitis B and C. Seek help to stop. The viruses that cause this kind of hepatitis are passed by blood or sexual contact with an infected person. It may even be possible to pass Hepatitis C by sharing straws to snort cocaine. Never share needles or other equipment. Follow Up with your doctor or as advised by our staff. Learn more about your disease and the availability of support groups for others with the same condition. Contact one of the following for more information: [employer] [facility] www.liverfoundation.org 584-914-2927 [employer] www.hepfi.org Get Prompt Medical Attention if any of the following occur: Rapid weight gain with increased size of your abdomen or leg swelling Increasing jaundice (yellow color of skin or eyes) Excess bleeding from cuts or injuries Ascites Ascites is a collection of fluid in the abdominal cavity. The fluid leaks from the blood vessels that go to the intestines and liver. The most common cause for ascites is cirrhosis (scarring) of the liver. This is most often caused by alcoholism but other conditions such as chronic hepatitis (type B or C) can also cause this. Conditions not related to the liver can cause ascites such as congestive heart failure, kidney failure, pancreatitis, and cancer involving the abdominal organs. As the amount of fluid increases, it causes abdominal swelling and discomfort. There may also be loss of appetite and shortness of breath. In severe cases, the feet, ankles and legs also swell. Initial treatment is to restrict your salt intake and use medicines that promote urination (diuretics, also called water pills). In severe cases the fluid may need to be drained from the abdomen with a needle (called symptoms can be better controlled with medicines. If your liver damage is from alcohol, quitting will slow the progress of the disease and may prevent further complications. If your liver damage is from Hepatitis B or C, treatments may be given to fight the virus. If cirrhosis progresses and becomes life-threatening, a liver transplant may be considered. Home Care: If liver disease is the cause of your ascites, avoid medicines that can worsen liver damage such as acetaminophen (Tylenol). Your doctor will explain if any of the medicines you now take need to be changed. Talk to your doctor before taking mineral and vitamin supplements. Vitamin A, iron and copper can worsen liver damage. Stop all alcohol use. If you are alcoholic, seek professional help. Consider joining Alcoholics Anonymous for ongoing support. If you use IV drugs, seek help to stop. The viruses that cause this kind of hepatitis are passed by blood or sexual contact with an infected person. Never share needles or other equipment. Follow Up with your doctor or as advised by our staff. Learn more about your disease and the availability of support groups for others with the same condition. [employer] [facility] 600-491-2174 www.liverfoundation.org [employer]. 314.521.5304 www.hepfi.org Alcoholics Anonymous offers support through a self-help fellowship. There are no dues or fees. See the Yellow Pages and call for time and place of meetings. www.aa.org [employer] offers support to families of alcohol users. 368.247.6889 www.al-anon.org [employer] [place] [employer] and [employer] Dependence 980-229-8355 www.ncadd.org Get Prompt Medical Attention if any of the following occur: Sudden weight gain with increased size of your abdomen or leg swelling Increasing jaundice (yellow color of skin or eyes) Excess bleeding from cuts or injuries Blood in your vomit or stool (black or red color) Difficulty breathing Increasing abdominal pain Fever of 100.4F (38C) or higher, or as directed by your healthcare provider Ondansetron Oral disintegrating tablet What is this medicine? ONDANSETRON (on ZOE se guerrero) is used to treat nausea and vomiting caused by chemotherapy. It is also used to prevent or treat nausea and vomiting after surgery. How should I use this medicine? These tablets are made to dissolve in the mouth. Do not try to push the tablet through the foil backing. With dry hands, peel away the foil backing and gently remove the tablet. Place the tablet in the mouth and allow it to dissolve, then swallow. While you may take these tablets with water, it is not necessary to do so. Talk to your group art supervisor regarding the use of this medicine in children. Special care may be needed. What side effects may I notice from receiving this medicine? Side effects that you should report to your doctor or health transitions rn care coordinator as soon as possible: allergic reactions like skin rash, itching or hives, swelling of the face, lips, or tongue breathing problems dizziness fast or irregular heartbeat feeling faint or lightheaded, falls fever and chills swelling of the hands and feet tightness in the chest Side effects that usually do not require medical attention (report to your doctor or health transitions rn care coordinator if they continue or are bothersome): constipation or diarrhea headache What may interact with this medicine? Do not take this medicine with any of the following medications: -apomorphine -cisapride -dofetilide -dronedarone -pimozide -thioridazine -ziprasidone This medicine may also interact with the following medications: -carbamazepine -phenytoin -rifampicin -tramadol -other medicines that prolong the QT interval (cause an abnormal heart rhythm) What if I miss a dose? If you miss a dose, take it as soon as you can. If it is almost time for your next dose, take only that dose. Do not take double or extra doses. Where should I keep my medicine? Keep out of the reach of children. Store between 2 and 30 degrees C (36 and 86 degrees F). Throw away any unused medicine after the expiration date. What should I tell my health care provider before I take this medicine? They need to know if you have any of these conditions: heart disease history of irregular heartbeat liver disease low levels of magnesium or potassium in the blood an unusual or allergic reaction to ondansetron, granisetron, other medicines, foods, dyes, or preservatives or trying to get breast-feeding What should I watch for while using this medicine? Check with your doctor or health transitions rn care coordinator as soon as you can if you have any sign of an allergic reaction. Famotidine Oral tablet What is this medicine? FAMOTIDINE (fa DARSHAN ti dominique) is a type of antihistamine that blocks the release of stomach acid. It is used to treat stomach or intestinal ulcers. It can also relieve heartburn from acid reflux. How should I use this medicine? Take this medicine by mouth with a glass of water. Follow the directions on the prescription label. If you only take this medicine once a day, take it at bedtime. Take your doses at regular intervals. Do not take your medicine more often than directed. Talk to your group art supervisor regarding the use of this medicine in children. Special care may be needed. What side effects may I notice from receiving this medicine? Side effects that you should report to your doctor or health transitions rn care coordinator as soon as possible: agitation, nervousness confusion hallucinations skin rash, itching Side effects that usually do not require medical attention (report to your doctor or health transitions rn care coordinator if they continue or are bothersome): constipation diarrhea dizziness headache What may interact with this medicine? delavirdine itraconazole ketoconazole What if I miss a dose? If you miss a dose, take it as soon as you can. If it is almost time for your next dose, take only that dose. Do not take double or extra doses. Where should I keep my medicine? Keep out of the reach of children. Store at room temperature between 15 and 30 degrees C (59 and 86 degrees F). Do not freeze. Throw away any unused medicine after the expiration date. What should I tell my health care provider before I take this medicine? They need to know if you have any of these conditions: kidney or liver disease trouble swallowing an unusual or allergic reaction to famotidine, other medicines, foods, dyes, or preservatives or trying to get breast-feeding What should I watch for while using this medicine? Tell your doctor or health transitions rn care coordinator if your condition does not start to get better or if it gets worse. Finish the full course of tablets prescribed, even if you feel better. Do not take with aspirin, ibuprofen or other antiinflammatory medicines. These can make your condition worse. Do not smoke cigarettes or drink alcohol. These cause irritation in your stomach and can increase the time it will take for ulcers to heal. If you get black, tarry stools or vomit up what looks like coffee grounds, call your doctor or health transitions rn care coordinator at once. You may have a bleeding ulcer. You have been given the following additional information: Abdominal Pain, Unknown Cause, (Male) Gastritis Vs. Ulcer Cirrhosis Ascites Ondansetron Oral disintegrating tablet Famotidine Oral tablet (Electronically signed by Jay Suarez Dr. 11/03/2016 4:37)
--- NOTE | 2016-11-03 04:37 | ED MED RECONCILIATION SUMMARY ---
Patient: MIRANDA SHANKS Medication Reconciliation Report [facility] VisitID: [id number] [place] [address] 46y, M Registration Date/Time: 10/27/2016 Weight: 104.3 kg Height/Length: 74 in. BMI: 29.5 ALLERGIES: Penicillins The patient's Home Medications are listed below: CONTINUE TAKING THE FOLLOWING MEDICATIONS: Dicyclomine HCl Oral (20 mg) 1 tablet, 4x a day Furosemide Oral (20 mg) 1 tablet, daily Gabapentin Oral 100 mg, 3x a day Lactulose Oral (20 gm/30mL), 3x a day Pantoprazole Sodium Oral (40 mg) 1 tablet, daily Propranolol HCl Oral (10 mg) 1 tablet, 2x a day Spironolactone Oral (50 mg) 1 tablet, daily Ursodiol Oral (300 mg) 2 capsules, 2 times daily Xifaxan Oral (550 mg) 1 tablet, 2 times daily The source(s) of the original Home Medication information: patient The following Medications were given to the patient in the Emergency Department: Morphine [IVP] IVP 4 mg, administered: 10/27/2016 7:39:00 PM GI COCKTAIL WHITE [PO] PO 30 mL, administered: 10/27/2016 8:51:00 PM The following Medications were prescribed to the patient: Zofran (orally disintegrating tablets) 4 mg: take 1 orally. Dispense ten (10). No refill. Substitution is permissible. -- Jay Suarez Dr. morphine sulfate 15 mg tab IR. take one tab PO as needed for pain every 6 hours. Disp 8 tabs. Substitution allowed. No refills. -- Jay Suarez Dr. Pepcid 20 mg: take 1 orally every 12 hours for 10 days as needed for indigestion, upset stomach or heartburn. Dispense twenty (20). No refills. Substitution is permissible. -- Jay Suarez Dr.
--- NOTE | 2016-11-03 04:37 | ED MAR SUMMARY ---
..... Medication Administration Record [facility] [address] [place] [address] Patient: MIRANDA SHANKS Visit ID: [id number] 46y, M Weight: 104.3 kg Height/Length: 74 in BMI: 29.5 ALLERGIES: Penicillins Given 19:39 10/27/2016 Rozina Parish, RLmN. Medication Administered: MORPHINE [IVP], Dose: 4 mg IVP over 1 minute(s), Site: #1 left AC. Medication Ordered: Morphine IV 4 mg (HIGH ALERT MEDICATION, NOW). Given 20:51 10/27/2016 Rozina Parish, R.N. Medication Administered: GI COCKTAIL WHITE [PO] (SIMETHICONE), Dose: 30 mL Oral Suspension PO. Medication Ordered: GI Cocktail WHITE PO 30 mL (NOW).
--- NOTE | 2016-11-03 04:37 | ED MED RECONCILIATION SUMMARY ---
Patient: MIRANDA SHANKS Medication Reconciliation Report [facility] VisitID: [id number] [place] [address] 46y, M Registration Date/Time: 10/27/2016 Weight: 104.3 kg Height/Length: 74 in. BMI: 29.5 ALLERGIES: Penicillins The patient's Home Medications are listed below: CONTINUE TAKING THE FOLLOWING MEDICATIONS: Dicyclomine HCl Oral (20 mg) 1 tablet, 4x a day Furosemide Oral (20 mg) 1 tablet, daily Gabapentin Oral 100 mg, 3x a day Lactulose Oral (20 gm/30mL), 3x a day Pantoprazole Sodium Oral (40 mg) 1 tablet, daily Propranolol HCl Oral (10 mg) 1 tablet, 2x a day Spironolactone Oral (50 mg) 1 tablet, daily Ursodiol Oral (300 mg) 2 capsules, 2 times daily Xifaxan Oral (550 mg) 1 tablet, 2 times daily The source(s) of the original Home Medication information: patient The following Medications were given to the patient in the Emergency Department: Morphine [IVP] IVP 4 mg, administered: 10/27/2016 7:39:00 PM GI COCKTAIL WHITE [PO] PO 30 mL, administered: 10/27/2016 8:51:00 PM The following Medications were prescribed to the patient: Zofran (orally disintegrating tablets) 4 mg: take 1 orally. Dispense ten (10). No refill. Substitution is permissible. -- Jay Suarez Dr. morphine sulfate 15 mg tab IR. take one tab PO as needed for pain every 6 hours. Disp 8 tabs. Substitution allowed. No refills. -- Jay Suarez Dr. Pepcid 20 mg: take 1 orally every 12 hours for 10 days as needed for indigestion, upset stomach or heartburn. Dispense twenty (20). No refills. Substitution is permissible. -- Jay Suarez Dr.
== END 2016-10-27 21:50 | disposition home or self-care (01) ==
LOC: ED SRH 17:31
DX: K70.30 Alcoholic cirrhosis of liver without ascites (principal); K29.00 Acute gastritis without bleeding; R11.2 Nausea with vomiting, unspecified; R10.12 Left upper quadrant pain; E11.29 Type 2 diabetes mellitus with other diabetic kidney complication; Z79.899 Other long term (current) drug therapy; Z88.0 Allergy status to penicillin
CPT/HCPCS: 90004; 90100; 91588; 92031; 92235; 94001; 94060; 95059

== ENCOUNTER 2016-11-27 20:00 | Emergency (ER) | payer OTHER ==
--- NOTE | 2016-11-28 01:05 | ED NURSING NOTES ---
Clinical Report - Nurses [facility] [address] [place] [address] 11/27/2016 20:01 Patient: MIRANDA SHANKS TRIAGE Triage time 20:Nov 27 2016. Acuity: LEVEL 3. Chief Complaint: DIZZINESS, WEAKNESS and LIGHT HEADED. Alert. No acute distress. LEELA COMA SCORE: [place] Coma Scale: 15- eyes open spontaneously (4); best verbal response- oriented x 4 (5); best motor response- obeys commands (6). --20:17 Mary Ann Jacob R.N. 20:07 11/27/16. BP: 128/83. HR: 95. RR: 16. O2 saturation: 99%. Temp: 98.3 F. Pain level now: 01/15. --20:17 Mary Ann Jacob R.N. Weight: 104.3 kg stated. Height/Length: 74 inches Per Patient. BMI: 29.5. --20:15 Mary Ann Jacob R.N. Medications Dicyclomine HCl Oral (Tablet 20 mg) 1 tablet, 4x a day. Gabapentin Oral 100 mg, 3x a day. --20:09 Mary Ann Jacob R.N. Ciprofloxacin-Ciproflox HCl ER Oral. --20:09 Mary Ann Jacob R.N. HydrOXYzine HCl Oral. --20:09 Mary Ann Jacob R.N. Furosemide Oral (Tablet 20 mg) 1 tablet, daily. Spironolactone Oral (Tablet 50 mg) 1 tablet, daily. Xifaxan Oral (Tablet 550 mg) 1 tablet, 2 times daily. --20:10 Mary Ann Jacob R.N. Lactulose Oral (Solution 20 gm/30mL), 3x a day. --20:11 Mary Ann Jacob R.N. Propranolol HCl Oral (Tablet 10 mg) 1 tablet, 2x a day. --20:11 Mary Ann Jacob R.N. Pantoprazole Sodium Oral (Tablet Delayed Release 40 mg) 1 tablet, daily. --20:12 Mary Ann Jacob R.N. Allergies Penicillins. --20:12 Mary Ann Jacob R.N. History Arrived by private vehicle. Historian: patient. This started today. He has had nausea, trouble walking, a headache and vomiting. PAST MEDICAL HX: Immunizations: up-to-date. SOCIAL HX: Never smoker. Alcohol use. Last drink was 1 years ago. No drug use. No infectious disease exposure. SELF HARM ASSESSMENT: A self harm assessment was performed. The patient answered "no" to the question "Do you have thoughts of harming or killing yourself?" and "Have you recently had thoughts about harming or killing others?". NUTRITIONAL RISK ASSESSMENT: The nutritional risk assessment revealed no deficiencies. FUNCTIONAL ASSESSMENT: Functional assessment: no impairments noted. LEARNING NEEDS ASSESSMENT: The learning needs assessment revealed no barriers. ABUSE ASSESSMENT: Abuse assessment: The patient was asked "Do you feel safe in your home?". FALL RISK ASSESSMENT: Fall risk assessment completed. Risk factors identified include dizziness. SKIN INTEGRITY ASSESSMENT: Skin integrity risk assessment completed. No skin integrity risk identified. --20:17 Mary Ann Jacob R.N. PROBLEMS: Alcoholic Liver Disease. Nausea. Gastritis. Abdominal Pain. Peritonitis. Suture Removal. Murmur. Esophageal ulcers. Gastric ulcer. Kidney problems. Liver failure. Alcoholism. --20:12 Mary Ann Jacob R.N. ADDITIONAL SURGERIES: Carpal Tunnel Surgery. Cholecystectomy. Dental Surgery. Hernia Repair. --20:12 Mary Ann Jacob R.N. Interventions ID and allergy band on patient. To room. --20:17 Mary Ann Jacob R.N. PHYSICAL ASSESSMENT Ambulatory to room. GENERAL / NEURO / PSYCH: Oriented X 4. (appears weak). He has normal color for race, appears uncomfortable and is well developed. Alert. Speech within normal limits. HEENT: No facial asymmetry noted. Pupils equal, round and reactive to light. RESPIRATORY: Respirations not labored. CVS: Capillary refill less than 2 seconds. GI / : Abdomen soft. Abdominal tenderness diffusely. SKIN: Skin is warm and dry. --20:19 Mary Ann Jacob R.N. NURSING PROGRESS NOTES Pulse oximeter and NIBP monitor placed on patient; monitor alarms on. Patient gowned. Head of bed elevated. Patient identifiers checked. Call light placed in reach. Side rails up x 1. Bed placed in lowest position. Brakes of bed on. --20:20 Mary Ann Jacob R.N. EKG time: (2018). EKG was performed by a tech and shown to the ED physician. --20:43 Denice Sky 20:25 11/26/2016 Site #1 started via IV in the right upper arm with an 20g angiocath, with aseptic technique and good blood return; one attempt. Blood drawn: rainbow set. Labeled in the presence of the patient and sent to the lab. Saline lock flushed. --20:46 Mary Ann Jacob R.N. 20:51 11/27/2016 Started bag #1 1000 mL IV Fluids IV NS (Saline); bolus of 1000 mL over 1 hour(s) via site #1. Allergies verified and confirmed 5 rights. IV patency established. IV site checked: no pain, redness, or swelling. IV flushed thoroughly pre- and post-medication administration. --20:51 Mary Ann Jacob R.N. Reassessment after fluids administered. He is calm and resting quietly. Overall patient status is the same. He states does not feel the same. GENERAL / NEURO / PSYCH: Patient is calm and cooperative. Alert. Oriented X 4. SKIN: Skin is warm and dry. --21:21 Mary Ann Jacob R.N. 21:20 11/27/16. BP: 114/59. HR: 88. RR: 21. O2 saturation: 99%. Pain level now: 810. --21:21 Mary Ann Jacob R.N. 22:25 11/27/2016 IV Fluids IV NS Discontinued: bag #1 infused. Total amount infused: 1000 mL. --22:25 Mary Ann Jacob R.N. Reassessment after fluids administered. He is calm and resting quietly. Overall patient status is the same- he states feels the same. GENERAL / NEURO / PSYCH: Patient is calm and cooperative. Alert. Oriented X 4. RESPIRATORY: No respiratory distress. SKIN: Skin is warm and dry. --22:25 Mary Ann Jacob R.N. 22:24 11/27/16. BP: 117/59. HR: 90. RR: 12. O2 saturation: 100%. Pain level now: 01/15. --22:25 Mary Ann Jacob R.N. Care transferred and report given (Sheriff BRIDGES). --23:39 Mary Ann Jacob R.N. 23:51 11/27/16. BP: 113/68. HR: 90. RR: 18. O2 saturation: 100%. Temp: 98.7 F. --23:52 Sheriff Moeller R.N. The patient is calm and resting quietly. Overall patient status is the same. --23:52 Sheriff Moeller R.N. DISPOSITION / DISCHARGE No learning barriers present. Discharge instructions provided and reviewed with the patient. Reviewed medication(s). Patient verbalized understanding. Written instructions provided in Thai. The patient was discharged by the physician. He was discharged home and unaccompanied at time of discharge. He left the Emergency Department ambulatory and via private vehicle. Patient driving. --01:18 Sheriff Moeller R.N. 01:17 11/28/16. BP: 121/72. HR: 92. RR: 12. O2 saturation: 99%. Temp: 98.3 F. --01:18 Sheriff Moeller R.N. Locked/Released at 11/28/2016 1:18 by Sheriff Moeller R.N.
--- NOTE | 2016-11-28 01:05 | ED ORDER SUMMARY ---
..... Patient: MIRANDA SHANKS OrderSheet [facility] VisitID: [id number] [place] [address] 46y, M Registration Date/Time: 11/27/2016 ORDER SHEET Weight: 104.3 kg (stated) Allergies: Penicillins GENERAL ORDERS: Digital Strategy Director (Continuous) (20:11/27/2016 Víctor WHITE) (Ack 20:18 AMcQuoid ER Tech1) (20:50 KKnebel R.N.) CBC w Diff Urgent (20:11/27/2016 Víctor WHITE) (Ack 20:18 AMcQuoid ER Tech1) (20:44 KKnebel R.N.) CMP Urgent (20:11/27/2016 Víctor WHITE) (Ack 20:18 AMcQuoid ER Tech1) (20:45 KKnebel R.N.) Pulse oximeter (20:11/27/2016 Víctor WHITE) (Ack 20:18 AMcQuoid ER Tech1) (20:45 KKnebel R.N.) EKG - ER Stat (20:11/27/2016 Víctor WHITE) (Ack 20:18 AMcQuoid ER Tech1) (20:31 AMcQuoid ER Tech1) Amylase Urgent (22:28 11/27/2016 Yamileth WHITE) (22:30 AMcQuoid ER Tech1) Lipase Urgent (22:28 11/27/2016 Yamileth WHITE) (22:30 AMcQuoid ER Tech1) Ammonia Level Urgent (22:28 11/27/2016 Yamileth WHITE) (Ack 22:30 AMcQuoid ER Tech1) (22:37 KKnebel R.N.) MEDICATION ORDERS: IV FLUIDS: IV NS : initial bolus 1000 mL (1000 mL/hr), then none - (NOW) (20:11/27/2016 Víctor WHITE) (20:51 KKnebel R.N.) ORDER SHEET NOTES: [Electronically signed by Sheriff Roslyn Moeller (01:18 11/28/2016)] [Electronically signed by Sergei Cowart MD (08:56 11/28/2016)] [Electronically locked/signed by Sheriff Roslyn Moeller (01:18 11/28/2016)]
--- NOTE | 2016-11-28 01:05 | ED ORDER SUMMARY ---
..... Patient: MIRANDA SHANKS OrderSheet [facility] VisitID: [id number] [place] [address] 46y, M Registration Date/Time: 11/27/2016 ORDER SHEET Weight: 104.3 kg (stated) Allergies: Penicillins GENERAL ORDERS: Renewals Manager (Continuous) (20:11/27/2016 Víctor WHITE) (Ack 20:18 AMcQuoid ER Tech1) (20:50 KKnebel R.N.) CBC w Diff Urgent (20:11/27/2016 Víctor WHITE) (Ack 20:18 AMcQuoid ER Tech1) (20:44 KKnebel R.N.) CMP Urgent (20:11/27/2016 Víctor WHITE) (Ack 20:18 AMcQuoid ER Tech1) (20:45 KKnebel R.N.) Pulse oximeter (20:11/27/2016 Víctor WHITE) (Ack 20:18 AMcQuoid ER Tech1) (20:45 KKnebel R.N.) EKG - ER Stat (20:11/27/2016 Víctor WHITE) (Ack 20:18 AMcQuoid ER Tech1) (20:31 AMcQuoid ER Tech1) Amylase Urgent (22:28 11/27/2016 Yamileth WHITE) (22:30 AMcQuoid ER Tech1) Lipase Urgent (22:28 11/27/2016 Yamileth WHITE) (22:30 AMcQuoid ER Tech1) Ammonia Level Urgent (22:28 11/27/2016 Yamileth WHITE) (Ack 22:30 AMcQuoid ER Tech1) (22:37 KKnebel R.N.) MEDICATION ORDERS: IV FLUIDS: IV NS : initial bolus 1000 mL (1000 mL/hr), then none - (NOW) (20:11/27/2016 Víctor WHITE) (20:51 KKnebel R.N.) ORDER SHEET NOTES: [Electronically signed by Sheriff Roslyn Moeller (01:18 11/28/2016)] [Electronically signed by Sergei Cowart MD (08:56 11/28/2016)] [Electronically locked/signed by Sheriff Roslyn Moeller (01:18 11/28/2016)]
--- NOTE | 2016-11-28 01:05 | ED CLINICAL REPORT ---
Clinical Report - Physicians/Mid Levels [facility] [address] [place] [address] 11/27/2016 20:01 Patient: MIRANDA SHANKS Time Seen: 20:09. Arrived- By private vehicle. Historian- patient. HISTORY OF PRESENT ILLNESS Chief Complaint: WEAKNESS. Not described as a sense of rotation, movement, falling or confusion. Not described as feeling off balance or faint. Described as feeling light-headed and weak all over. Severity described as moderate at its maximum. When seen in the E.D., severity described as moderate. Modifying factors- relieved by nothing. Not worsened by anything. This started about 2 weeks ago, but worse today and is still present. It was gradual in onset and has been waxing/waning. The patient has had nausea. No vomiting. Similar symptoms previously: Occasionally. Recent medical care: Not recently seen/assessed. REVIEW OF SYSTEMS No headache, double vision, fainting episodes, head injury or chest pain. No palpitations, black stools, numbness, bloody stools or fever. No sore throat, cough, difficulty breathing, abdominal pain or diarrhea. No difficulty with urination, skin rash, enlarged lymph nodes, chills or joint pain. The patient has had weakness. No difficulty walking. All systems otherwise negative, except as recorded above. PAST HISTORY Problems: Alcoholic Liver Disease. Diabetes Mellitus. Murmur. Esophageal ulcers. Gastric ulcer. Alcoholism. Additional Surgeries: Carpal Tunnel Surgery. Cholecystectomy. Dental Surgery. Hernia Repair. Medications: Pantoprazole Sodium Oral (Tablet Delayed Release 40 mg) 1 tablet, daily. Propranolol HCl Oral (Tablet 10 mg) 1 tablet, 2x a day. Lactulose Oral (Solution 20 gm/30mL), 3x a day. Furosemide Oral (Tablet 20 mg) 1 tablet, daily. Spironolactone Oral (Tablet 50 mg) 1 tablet, daily. Xifaxan Oral (Tablet 550 mg) 1 tablet, 2 times daily. HydrOXYzine HCl Oral. Ciprofloxacin-Ciproflox HCl ER Oral. Dicyclomine HCl Oral (Tablet 20 mg) 1 tablet, 4x a day. Gabapentin Oral 100 mg, 3x a day. Allergies: Penicillins. SOCIAL HISTORY Never smoker. Alcohol use. Patient is a recovering alcoholic. No drug use. FAMILY HISTORY Denies family medical history. ADDITIONAL NOTES The nursing notes have been reviewed. PHYSICAL EXAM Vital Signs: 11/27/2016 20:07 BP: 128/83. HR: 95. RR: 16. O2 saturation: 99%. Temp: 98.3 F. Pain level now: 8/10. Have been reviewed. Appearance: Alert. No acute distress. (patient appears mildly anxious.). ENT: Normal ENT inspection. Moist mucous membranes. (Patient has scleral icterus). Neck: Normal inspection. CVS: Normal heart rate and rhythm. 2/6 systolic murmur. Pulses normal. Respiratory: No respiratory distress. Breath sounds normal. Abdomen: Soft. Mild tenderness diffusely. Back: Normal inspection. Skin: Skin warm and dry. No rash. Normal skin turgor. Jaundiced. Extremities: Extremities exhibit normal ROM. No lower extremity edema. Neuro: Alert. Oriented X 3. Mood/affect normal. Speech normal. (Neurologic exam is grossly intact.). LABS, X-RAYS, AND EKG EKG: EKG time: (2018). No acute process. No acute ischemia. Normal EKG. Normal sinus rhythm. Rate: 88. Normal P waves. Normal RAÚL. Normal QRS complex. Normal axis. Normal ST and T waves, QT and QTc. Prior EKG unavailable. The study has been interpreted contemporaneously by me. The study has been independently viewed by me. The EKG appears to be a good tracing. I agree with and confirm the computer reading of the EKG. Laboratory Tests: CBC w Diff: (APOLLO: 11/27/2016 20:25) ( MsgRcvd 11/27/2016 21:18) Final results Test Result Flag Units (Reference) WHITE BLOOD COUNT 7.0 K/uL (4.5-11.5) RED BLOOD COUNT 3.06 L M/uL (4.50-5.90) HEMOGLOBIN 10.5 L gm/dL (13.5-17.5) HEMATOCRIT 30.6 L % (41.0-53.0) MEAN CELL VOLUME 100 fL (80-100) MEAN CORPUSCULAR HGB 34 pg (26-34) MEAN CORPUSCULAR HGB CONC 34 g/dL (31-37) RED CELL DISTRIBUTION WIDTH 20.9 H % (11.6-14.8) PLATELET COUNT 59 L K/uL (150-400) POLY % 69 % (50-75) BAND % 0 % (0-8) LYMPH 16 L % (25-40) MONO 10 % (3-14) EOSINOPHIL % 5 H % (0-4) BASOPHIL % 0 % (0-2) METAMYELOCYTE % 0 % (0-1) MYELOCYTE 0 % (0-1) OTHER CELL TYPE 0 ANISOCYTOSIS 2+ MACROCYTOSIS 1+ Ammonia Level: (APOLLO: 11/27/2016 22:36) ( [facility] 11/27/2016 23:39) Final results Test Result Flag Units (Reference) AMMONIA < 10 L umol/L (11-32) Lipase: (APOLLO: 11/27/2016 20:25) ( [facility] 11/27/2016 23:14) Final results Test Result Flag Units (Reference) LIPASE 169 U/L (73-393) AMYLASE 62 U/L (25-115) CMP: (APOLLO: 11/27/2016 20:25) ( [facility] 11/27/2016 20:59) Final results Test Result Flag Units (Reference) GLUCOSE 106 mg/dL (70-110) BUN 23 H mg/dL (7-18) CREATININE 1.3 mg/dL (0.6-1.3) Estimated GFR >60 mL/min Estimated GFR- >60 mL/min Note: Persistent reduction over 3 months in eGFR<60 mL/min/1.73 m2 defines CKD. Patients with eGFR values>=60 mL/min/1.73 m2 may also have CKD if evidence ofpersistent proteinuria. Additional information may be foundat www.kidney.org. SODIUM 139 mmol/L (136-145) POTASSIUM 4.5 mmol/L (3.5-5.1) CHLORIDE 106 mmol/L (98-107) CARBON DIOXIDE 24 mmol/L (21-32) CALCIUM 8.4 L mg/dL (8.5-10.1) TOTAL PROTEIN 7.1 g/dL (6.4-8.2) ALBUMIN 2.5 L g/dL (3.3-5.0) BILIRUBIN, TOTAL 8.1 H mg/dL (0.0-1.0) ALKALINE PHOSPHATASE 253 H U/L (46-116) AST (SGOT) 58 H U/L (15-37) ALT (SGPT) 35 U/L (12-78) . Pulse Oximetry: 11/27/2016 20:07 O2 saturation: 99%. (FIO2 - room air). Interpretation: normal. PROGRESS AND PROCEDURES Course of Care: Patient was signed out to Dr. Sergei Cowart at change of shift, pending workup. Dr. Edwards and I reviewed the patient's history physical examination findings at change of shift. I followed up on the results of his labs. I subsequently reviewed the patient's history with him and examine him and my findings were consistent with those noted by Dr. Kapadia. Patient/family counseled. Old medical records reviewed. Disposition: Discharged. Condition: stable. CLINICAL IMPRESSION Dizziness Generalized weakness. INSTRUCTIONS Warnings: Further evaluation is necessary. GENERAL WARNINGS: Return or contact your physician immediately if your condition worsens or changes unexpectedly, if not improving as expected, or if other problems arise. Your Current Medications: CONTINUE TAKING THE FOLLOWING MEDICATIONS: Ciprofloxacin-Ciproflox HCl ER Oral. Dicyclomine HCl Oral : Tablet 20 mg, 1 tablet 4x a day. Furosemide Oral : Tablet 20 mg, 1 tablet daily. Gabapentin Oral : 100 mg 3x a day. HydrOXYzine HCl Oral. Lactulose Oral : Solution 20 gm/30mL, 3x a day. Pantoprazole Sodium Oral : Tablet Delayed Release 40 mg, 1 tablet daily. Propranolol HCl Oral : Tablet 10 mg, 1 tablet 2x a day. Spironolactone Oral : Tablet 50 mg, 1 tablet daily. Xifaxan Oral : Tablet 550 mg, 1 tablet 2 times daily. Follow-up: Follow up with your doctor tomorrow. Call for an appointment. Understanding of the discharge instructions verbalized by patient. (Electronically signed by Sergei Cowart MD 11/28/2016 8:56)
--- NOTE | 2016-11-28 08:57 | ED MED RECONCILIATION SUMMARY ---
Patient: MIRANDA SHANKS Medication Reconciliation Report [facility] VisitID: [id number] [address] [place] [address] 46y, M Registration Date/Time: 11/27/2016 Weight: 104.3 kg Height/Length: 74 in. BMI: 29.5 ALLERGIES: Penicillins The patient's Home Medications are listed below: CONTINUE TAKING THE FOLLOWING MEDICATIONS: Ciprofloxacin-Ciproflox HCl ER Oral Dicyclomine HCl Oral (20 mg) 1 tablet, 4x a day Furosemide Oral (20 mg) 1 tablet, daily Gabapentin Oral 100 mg, 3x a day HydrOXYzine HCl Oral Lactulose Oral (20 gm/30mL), 3x a day Pantoprazole Sodium Oral (40 mg) 1 tablet, daily Propranolol HCl Oral (10 mg) 1 tablet, 2x a day Spironolactone Oral (50 mg) 1 tablet, daily Xifaxan Oral (550 mg) 1 tablet, 2 times daily The source(s) of the original Home Medication information: Not obtained. The following Medications were given to the patient in the Emergency Department: IV NS IV Fluids bolus 1000 mL over 1 hour(s), administered: 11/27/2016 8:51:00 PM The following Medications were prescribed to the patient: None.
--- NOTE | 2016-11-28 08:57 | ED MAR SUMMARY ---
..... Medication Administration Record [facility] [address] [place] [address] Patient: MIRANDA SHANKS Visit ID: [id number] 46y, M Weight: 104.3 kg Height/Length: 74 in BMI: 29.5 ALLERGIES: Penicillins Start 20:51 11/27/2016 Mary Ann Jacob R.N., Stop 22:25 11/27/2016 Mary Ann Jacob R.N. Medication Administered: IV NS (SALINE), Dose: IV Fluids, Bolus: 1000 mL over 1 hour(s), Dispensed: 1000 mL bag, Site: #1 right upper arm. Medication Ordered: IV NS : initial bolus 1000 mL (1000 mL/hr), then none - (NOW).
--- NOTE | 2016-11-28 08:57 | ED DISCHARGE INSTRUCTIONS ---
Patient: MIRANDA SHANKS General Instructions Merged With [facility] VisitID: [id number] [place] [address] 46y, M Registration Date/Time: 11/27/2016 Dizziness Generalized weakness. INSTRUCTIONS Warnings: Further evaluation is necessary. GENERAL WARNINGS: Return or contact your physician immediately if your condition worsens or changes unexpectedly, if not improving as expected, or if other problems arise. Your Current Medications: CONTINUE TAKING THE FOLLOWING MEDICATIONS: Ciprofloxacin-Ciproflox HCl ER Oral. Dicyclomine HCl Oral : Tablet 20 mg, 1 tablet 4x a day. Furosemide Oral : Tablet 20 mg, 1 tablet daily. Gabapentin Oral : 100 mg 3x a day. HydrOXYzine HCl Oral. Lactulose Oral : Solution 20 gm/30mL, 3x a day. Pantoprazole Sodium Oral : Tablet Delayed Release 40 mg, 1 tablet daily. Propranolol HCl Oral : Tablet 10 mg, 1 tablet 2x a day. Spironolactone Oral : Tablet 50 mg, 1 tablet daily. Xifaxan Oral : Tablet 550 mg, 1 tablet 2 times daily. Follow-up: Follow up with your doctor tomorrow. Call for an appointment. Understanding of the discharge instructions verbalized by patient. ADDITIONAL INFORMATION Dizziness [Uncertain Cause] Dizziness is a common symptom sometimes described as "lightheadedness" or feeling like you are going to faint. If it lasts for only a few seconds and is related to changes in position (such as getting up after lying or sitting for a long time), it is usually not a sign of anything serious. Dizziness that lasts for minutes to hours, or comes on for no apparent reason, may be a sign of a more serious problem (such as dehydration, a medicine reaction, disease of the heart or brain). Today's exam did not show an exact cause for your dizzy spell . Sometimes additional tests are required before a cause can be found. Therefore, it is important to follow up with your doctor if your symptoms continue. Home Care: 1) If a dizzy spell occurs and lasts more than a few seconds, lie down until it passes. If you are lying down, then you cannot hurt yourself by falling if you do faint. 2) Do not drive or operate dangerous equipment until the dizzy spells have stopped for at least 48 hours. 3) If dizzy spells occur with sudden standing, this may be a sign of mild dehydration. Drink extra fluids over the next few days. 4) If you recently started a new medicine or if you had the dose of a current medicine increased (especially blood pressure medicine), talk with the prescribing doctor about your symptoms. Dose adjustments may be needed. Follow Up with your doctor for further evaluation within the next seven days, if your symptoms continue. Get Prompt Medical Attention if any of the following occur: -- Worsening of your symptoms -- Fainting, headache or seizure -- Repeated vomiting -- Feeling like you or the room is spinning -- Chest, arm, neck, back or jaw pain -- Palpitations (the sense that your heart is fluttering or beating fast or hard) -- Shortness of breath -- Blood in vomit or stool (black or red color) -- Weakness of an arm or leg or one side of the face -- Difficulty with speech or vision Weakness [Uncertain Cause] Based on your exam today, the exact cause of your weakness is not certain. However, your weakness does not seem to be a sign of a serious illness at this time. Sometimes the signs of a serious illness take more time to appear. Therefore, please watch for the warning signs listed below. Home Care: 1) Rest at home today. Do not over-exert yourself. 2) Take your medicine as prescribed. 3) For the next few days, drink extra fluids (unless your doctor wants you to restrict fluids for other reasons). Do not skip meals. Follow Up with your doctor or as advised if you are not starting to feel better within TWO days. Get Prompt Medical Attention if any of the following occur: Worsening of your symptoms Chest, arm, neck, jaw or upper back pain Dizziness or fainting Trouble breathing Unable to eat or drink normal amounts Nausea, frequent vomiting, frequent diarrhea Abdominal pain Numbness or weakness of the face, one arm or one leg Slurred speech, confusion, trouble speaking, walking or seeing Blood in vomit or stool (black or red color) Fever of 100.4 F (38 C) or higher, or as directed by your healthcare provider You have been given the following additional information: Dizziness, Unk Cause Weakness, Unk Cause (Electronically signed by Sergei Cowart MD 11/28/2016 8:56)
--- NOTE | 2016-11-28 08:57 | ED MED RECONCILIATION SUMMARY ---
Patient: MIRANDA SHANKS Medication Reconciliation Report [facility] VisitID: [id number] [address] [place] [address] 46y, M Registration Date/Time: 11/27/2016 Weight: 104.3 kg Height/Length: 74 in. BMI: 29.5 ALLERGIES: Penicillins The patient's Home Medications are listed below: CONTINUE TAKING THE FOLLOWING MEDICATIONS: Ciprofloxacin-Ciproflox HCl ER Oral Dicyclomine HCl Oral (20 mg) 1 tablet, 4x a day Furosemide Oral (20 mg) 1 tablet, daily Gabapentin Oral 100 mg, 3x a day HydrOXYzine HCl Oral Lactulose Oral (20 gm/30mL), 3x a day Pantoprazole Sodium Oral (40 mg) 1 tablet, daily Propranolol HCl Oral (10 mg) 1 tablet, 2x a day Spironolactone Oral (50 mg) 1 tablet, daily Xifaxan Oral (550 mg) 1 tablet, 2 times daily The source(s) of the original Home Medication information: Not obtained. The following Medications were given to the patient in the Emergency Department: IV NS IV Fluids bolus 1000 mL over 1 hour(s), administered: 11/27/2016 8:51:00 PM The following Medications were prescribed to the patient: None.
--- NOTE | 2016-11-28 08:57 | ED MAR SUMMARY ---
..... Medication Administration Record [facility] [address] [place] [address] Patient: MIRANDA SHANKS Visit ID: [id number] 46y, M Weight: 104.3 kg Height/Length: 74 in BMI: 29.5 ALLERGIES: Penicillins Start 20:51 11/27/2016 Mary Ann Jacob R.N., Stop 22:25 11/27/2016 Mary Ann Jacob R.N. Medication Administered: IV NS (SALINE), Dose: IV Fluids, Bolus: 1000 mL over 1 hour(s), Dispensed: 1000 mL bag, Site: #1 right upper arm. Medication Ordered: IV NS : initial bolus 1000 mL (1000 mL/hr), then none - (NOW).
== END 2016-11-28 01:15 | disposition home or self-care (01) ==
LOC: ED SRH 20:00
DX: R53.1 Weakness (principal); R42 Dizziness and giddiness; E11.9 Type 2 diabetes mellitus without complications; Z79.899 Other long term (current) drug therapy; Z88.0 Allergy status to penicillin
CPT/HCPCS: 83475; 90074; 90100; 91588; 91643; 92235; 92530; 95059

== ENCOUNTER 2016-12-20 06:14 | Inpatient (IN) | payer OTHER ==
[~2016-12-20] VITALS: Ht 188 cm; Wt 100.7 kg
--- NOTE | 2016-12-20 08:46 | ED ORDER SUMMARY ---
..... Patient: MIRANDA SHANKS OrderSheet [facility] VisitID: [id number] [place] [address] 46y, M Registration Date/Time: 12/20/2016 ORDER SHEET Weight: 102.0 kg (stated) Allergies: Penicillins GENERAL ORDERS: Blood Culture (No) (N/A) Urgent (06:45 12/20/2016 Asia WHITE) (Ack 7:09 Justin) (7:13 Fred R.N.) CBC w Diff Urgent (06:46 12/20/2016 Asia WHITE) (Ack 7:09 Justin) (7:13 Fred R.N.) CMP Urgent (06:46 12/20/2016 Asia WHITE) (Ack 7:09 Justin) (7:13 Fred R.N.) Ammonia Level Urgent (06:46 12/20/2016 Asia WHITE) (Ack 7:09 Justin) (7:13 Fred R.N.) Amylase Urgent (07:11 12/20/2016 Asia WHITE) (7:13 Fred R.N.) Lipase Urgent (07:11 12/20/2016 Asia WHITE) (7:13 Fred R.N.) CT Abd/Pel w Cont (No) (pending) Urgent (07:16 12/20/2016 Asia WHITE) (Ack 7:31 Cruz) (8:34 Mg) Lactate, Serum Urgent (07:42 12/20/2016 Asia WHITE) (Ack 7:51 Cruz) (8:00 Yadiraams R.N.) PCT (Procalcitonin) Urgent (07:42 12/20/2016 Asia WHITE) (7:46 Magan R.N.) UA-Culture if indicated Urgent (09:21 12/20/2016 Asia WHITE) (Ack 9:23 Cruz) MEDICATION ORDERS: IV FLUIDS: IV NS : initial bolus none -, then 125 mL/hr for 4h (NOW); Routine (06:45 12/20/2016 Asia WHITE) (7:14 Fred R.N.) Rocephin IV 2 gm/50mL (NOW) (06:45 12/20/2016 Asia WHITE) (Ack 7:16 HSoule) (7:27 HSoule) Demerol IV 12.5 mg (NOW) (07:13 12/20/2016 Asia WHITE) (Cancelled: Other7:14 Asia WHITE) Zofran IV 4 mg (NOW) (07:13 12/20/2016 Asia WHITE) (Ack 7:16 HSoule) (7:26 HSoule) Demerol IV 6.25 mg IV (NOW) (07:14 12/20/2016 Asia WHITE) (Ack 7:16 HSoule) (7:26 HSoule) Flagyl IV 500 mg/100mL (NOW) (09:22 12/20/2016 Asia WHITE) (Ack 9:34 Manjinder R.NLm) (9:46 Manjinder R.N.) ORDER SHEET NOTES: [Electronically signed by Yandy Elam R.N. (11:15 12/20/2016)] [Electronically signed by Marquis Jackson MD (10:52 12/21/2016)] [Electronically locked/signed by Yandy Elam R.N. (11:15 12/20/2016)]
--- NOTE | 2016-12-20 08:46 | ED ORDER SUMMARY ---
..... Patient: MIRANDA SHANKS OrderSheet [facility] VisitID: [id number] [place] [address] 46y, M Registration Date/Time: 12/20/2016 ORDER SHEET Weight: 102.0 kg (stated) Allergies: Penicillins GENERAL ORDERS: Blood Culture (No) (N/A) Urgent (06:45 12/20/2016 Asia WHITE) (Ack 7:09 Justin) (7:13 Fred R.N.) CBC w Diff Urgent (06:46 12/20/2016 Asia WHITE) (Ack 7:09 Justin) (7:13 Frde R.N.) CMP Urgent (06:46 12/20/2016 Asia WHITE) (Ack 7:09 Justin) (7:13 Fred R.N.) Ammonia Level Urgent (06:46 12/20/2016 Asia WHITE) (Ack 7:09 Justin) (7:13 Fred R.N.) Amylase Urgent (07:11 12/20/2016 Asia WHITE) (7:13 Fred R.N.) Lipase Urgent (07:11 12/20/2016 Asia WHITE) (7:13 Fred R.N.) CT Abd/Pel w Cont (No) (pending) Urgent (07:16 12/20/2016 Asia WHITE) (Ack 7:31 Cruz) (8:34 Mg) Lactate, Serum Urgent (07:42 12/20/2016 Asia WHITE) (Ack 7:51 Cruz) (8:00 Yadiraams R.N.) PCT (Procalcitonin) Urgent (07:42 12/20/2016 Asia WHITE) (7:46 Magan R.N.) UA-Culture if indicated Urgent (09:21 12/20/2016 Asia WHITE) (Ack 9:23 Cruz) MEDICATION ORDERS: IV FLUIDS: IV NS : initial bolus none -, then 125 mL/hr for 4h (NOW); Routine (06:45 12/20/2016 Asia WHITE) (7:14 Fred R.N.) Rocephin IV 2 gm/50mL (NOW) (06:45 12/20/2016 Asia WHITE) (Ack 7:16 HSoule) (7:27 HSoule) Demerol IV 12.5 mg (NOW) (07:13 12/20/2016 Asia WHITE) (Cancelled: Other7:14 Asia WHITE) Zofran IV 4 mg (NOW) (07:13 12/20/2016 Asia WHITE) (Ack 7:16 HSoule) (7:26 HSoule) Demerol IV 6.25 mg IV (NOW) (07:14 12/20/2016 Asia WHITE) (Ack 7:16 HSoule) (7:26 HSoule) Flagyl IV 500 mg/100mL (NOW) (09:22 12/20/2016 Asia WHITE) (Ack 9:34 Manjinder R.NLm) (9:46 Manjinder R.N.) ORDER SHEET NOTES: [Electronically signed by Yandy Elam R.N. (11:15 12/20/2016)] [Electronically signed by Marquis Jackson MD (10:52 12/21/2016)] [Electronically locked/signed by Yandy Elam R.N. (11:15 12/20/2016)]
--- NOTE | 2016-12-20 08:46 | ED NURSING NOTES ---
Clinical Report - Nurses [facility] [address] [place] [address] 12/20/2016 6:15 Patient: MIRANDA SHANKS TRIAGE Triage time 06:24. Acuity: LEVEL 2. Chief Complaint: ABDOMINAL PAIN, NAUSEA and VOMITING and FEVER, CHILLS and ACHES. --06:31 Valeria Paris R.N. 06:24 12/20/16. BP: 127/69. HR: 116. RR: 22. O2 saturation: 100%. Temp: 100.2 F (oral). Pain level now: 02/15. --06:31 Valeria Paris R.N. Weight: 102 kg stated. Height/Length: 74 inches Per Patient. BMI: 28.9. --06:26 Valeria Paris R.N. Medications Ciprofloxacin-Ciproflox HCl ER Oral. Dicyclomine HCl Oral (Tablet 20 mg) 1 tablet, 4x a day. Furosemide Oral (Tablet 20 mg) 1 tablet, daily. Gabapentin Oral 100 mg, 3x a day. Lactulose Oral (Solution 20 gm/30mL), 3x a day. Propranolol HCl Oral (Tablet 10 mg) 1 tablet, 2x a day. Spironolactone Oral (Tablet 50 mg) 1 tablet, daily. Xifaxan Oral (Tablet 550 mg) 1 tablet, 2 times daily. --06:29 Valeria Paris R.N. Allergies Penicillins. --06:29 Valeria Paris R.N. History Arrived by private vehicle. Historian: patient. Unaccompanied. Primary physician (kamaljit). This started yesterday. ( Severe abd pain, vomiting started yesterday d/c from [facility] on morning after inpatient for several days). Treatment NEWS CONTENT SPECIALIST: None. PAST MEDICAL HX: Immunizations: up-to-date. SOCIAL HX: Never smoker. Alcohol use. Patient is a recovering alcoholic. (in 2015). No drug use. He has not traveled outside the [place] No known contact with a sick individual. ABUSE ASSESSMENT: No report of abuse. SELF HARM ASSESSMENT: A self harm assessment was performed. The patient answered "no" to the question "Have you recently felt down, depressed, or hopeless?", "Have you noticed less interest or pleasure in doing things?", "Do you have thoughts of harming or killing yourself?", "Are you here because you tried to hurt yourself?", "Have you ever tried to hurt yourself before today?", "Have you recently had thoughts about harming or killing others?" and "Do you have any dangerous items in your possession?". --06:31 Valeria Paris R.N. PROBLEMS: Weakness. Dizziness. Alcoholic Liver Disease. Diabetes Mellitus. Nausea. Gastritis. Abdominal Pain. Peritonitis. Suture Removal. Murmur. Esophageal ulcers. Gastric ulcer. Kidney problems. Liver failure. Alcoholism. --06:29 Valeria Paris R.N. ADDITIONAL SURGERIES: Carpal Tunnel Surgery. Cholecystectomy. Dental Surgery. Hernia Repair. --06:29 Valeria Paris R.N. Interventions ID band on patient. To treatment room. --06:31 Valeria Paris R.N. PHYSICAL ASSESSMENT Ambulatory to room. GENERAL / NEURO / PSYCH: Alert. Oriented X 4. Appears in pain and anxious. HEENT: Mucous membranes are pink. RESPIRATORY: Respirations not labored. Breath sounds within normal limits. CVS: Normal sinus rhythm noted. Capillary refill less than 2 seconds. GI / : The patient has had constant nausea. Abdominal distention noted as firm with tenderness to palpation. Abdominal tenderness diffusely. Guarding present. Bowel sounds within normal limits. SKIN: Skin is warm and dry. --06:32 Valeria Paris R.N. NURSING PROGRESS NOTES Patient gowned. Two patient identifiers checked. Call light placed in reach. Side rails up x 1. Bed placed in lowest position. Brakes of bed on. Patient ready for evaluation- chart flagged. --06:32 Valeria Paris R.N. 06:40 12/20/2016 Site #1 started via IV in the right antecubital space with an 20g angiocath, with aseptic technique and good blood return; one attempt. Blood drawn: rainbow set. Labeled in the presence of the patient and sent to the lab. Saline lock flushed with 10 mL saline. --06:45 Valeria Paris R.N. 07:00 12/20/2016 Started bag #1 1000 mL IV Fluids IV NS (Saline); at 125 mL/hr over 4 hour(s) via site #1 via IV pump. Allergies verified and confirmed 5 rights. IV patency established. IV site checked: no pain, redness, or swelling. IV flushed thoroughly pre- and post-medication administration. --07:14 Valeria Paris R.N. 07:21 12/20/2016 Zofran (Ondansetron HCl) IVP 4 mg given over 2 minute(s) via site #1. Allergies verified and confirmed 5 rights. IV patency established. IV site checked: no pain, redness, or swelling. IV flushed thoroughly pre- and post-medication administration. IVP given by RN. --07:26 Serenity Cam 07:26 12/20/2016 Demerol (Meperidine HCl) IVP 6.25 mg given over 1 minute(s) via site #1. Allergies verified and confirmed 5 rights. IV patency established. IV site checked: no pain, redness, or swelling. IV flushed thoroughly pre- and post-medication administration. IVP given by RN. --07:27 Serenity Cam 07:00. Patient ID band checked for patient name and birthdate: patient confirmed. Blood samples drawn from the right side and left forearm with syringe and 23g butterfly by tech per protocol ; labeled in presence of the patient and sent to lab: blood culture (2nd set). --07:27 Lilian Tavarez 07:27 12/20/2016 Started 2 gm of Rocephin (CefTRIAXone Sodium) IVPB in bag #1 50 mL; at 150 mL/hr over 20 minute(s) via site #1 via IV pump. Allergies verified and confirmed 5 rights. IV patency established. IV site checked: no pain, redness, or swelling. IV flushed thoroughly pre- and post-medication administration. --07:27 Serenity Cam 07:25 12/20/16. BP: 113/58. HR: 103. RR: 16. O2 saturation: 100%. Pain level now: 02/15. --07:39 AliM Monitoring of patient in place. Patient gowned. Reassurance given. Patient identifiers checked. Call light placed in reach. Bed placed in lowest position. Brakes of chair on. ( First contact with pt. Pt lying in bed.). --07:39 AliM 07:45 12/20/2016 Rocephin IVPB Discontinued: bag #1 infused. Total amount infused: 50 mL. IV patency established. IV site checked: no pain, redness, or swelling. IV flushed thoroughly. --07:47 Charissa López R.N. Assisted patient to bathroom; tolerated well. --08:55 Charissa López R.N. 09:15 12/20/16. BP: 105/41 taken on the right arm. HR: 58. RR: 14. O2 saturation: 100%. Temp: 98.7 F. Pain level now: 02/15. --09:38 AliM Monitoring of patient in place. Head of bed elevated. Reassurance given. Call light placed in reach. Side rails up x 1. Bed placed in lowest position. Brakes of chair on. ( Pt stated he went BM approx 0910 and it "smelled like ammonia."). --09:38 Ali 09:46 12/20/2016 Started 500 mg of Flagyl (MetroNIDAZOLE in NaCl) IVPB in bag #1 500 mL; at 100 mL/hr over 1 hour(s) via site #1 via IV pump. Allergies verified and confirmed 5 rights. IV patency established. IV site checked: no pain, redness, or swelling. IV flushed thoroughly pre- and post-medication administration. --09:46 Yandy Elam R.N. 09:47 12/20/16. BP: 95/54. HR: 97. RR: 18. O2 saturation: 99%. Pain level now 02/15. --09:47 Yandy Elam R.N. 09:58 12/20/16. BP: 100/64. Additional comments: proivder notified of bp. No new orders at this time. . --09:59 Yandy Elam R.N. 10:27 12/20/16. BP: 104/60 taken on the left arm, manually. HR: 96 (regular). RR: 14 (regular and unlabored). O2 saturation: 99%. Temp: 98.3 F (oral). Pain level now: 02/15. --10:28 AliM 10:45 12/20/2016 Flagyl IVPB Discontinued: infused. Total amount infused: 100 mL. IV patency established. IV site checked: no pain, redness, or swelling. IV flushed thoroughly. --10:45 Yandy Elam R.N. ( attempt to call report. RN to call back.). --10:51 Yandy Elam R.N. DISPOSITION / DISCHARGE ( 10:27 12/20/16. BP: 104/60 taken on the left arm, manually. HR: 96 (regular). RR: 14 (regular and unlabored). O2 saturation: 99%. Temp: 98.3 F (oral). Pain level now: 02/15. --10:28 AliM.). Admitted to Acute Care. Transported via stretcher by [facility]. Report was given to a nurse via a phone call. Report included patient's care, treatment, medications, reviewed medication reconcilliation, and condition (including any recent changes or anticipated changes). All questions were answered. Patient's personal items; items were placed in belongings bag, given to the patient and transported with the patient. --10:48 Yandy Elam R.N. 10:44 12/20/16. RR: 16. --10:48 Yandy Elam R.N. Departure time: 11:14. --11:14 Yandy Elam R.N. Locked/Released at 12/20/2016 11:15 by Yandy Elam R.N.
--- NOTE | 2016-12-20 08:46 | ED CLINICAL REPORT ---
Clinical Report - Physicians/Mid Levels [facility] [address] [place] [address] 12/20/2016 6:15 Patient: MIRANDA SHANKS Time Seen: 06:36 Dec 20 2016. Arrived- By private vehicle. Historian- patient. Note: (Feels like prior episode of bacterial peritonitis.). Previous visits to this facility for similar complaints. CPT: ER phys charges level 5 (#[id number]). HISTORY OF PRESENT ILLNESS Chief Complaint: ABDOMINAL PAIN and VOMITING and NAUSEA. It is described as "pain" and it is described as located in the periumbilical area. At its maximum, severity described as moderate. When seen in the E.D., severity described as moderate. Modifying factors- worsened by movement. Not relieved by anything. This started yesterday Came on slowly and became worse today,; This started yesterday. ( Severe abd pain, vomiting [facility] and is still present. The patient has had nausea and vomiting. Similar symptoms previously: Once, as bad. Diagnosis: (peritonitis). Recent medical care: The patient was seen recently at another facility and hospitalized. Seen for other problems. Diagnosis: (high ammonia level and lethargy, Discharged 2 days ago.). REVIEW OF SYSTEMS No constipation, black stools, hematemesis, difficulty with urination or pain with urination. No urinary frequency, fever, sore throat, chest pain or difficulty breathing. No cough, joint pain, skin rash, chills or back pain. PAST HISTORY Weakness. Dizziness. Alcoholic Liver Disease. Diabetes Mellitus. Nausea. Gastritis. Abdominal Pain. Peritonitis. Suture Removal. Murmur. Esophageal ulcers. Gastric ulcer. Kidney problems. Liver failure. Alcoholism. . ADDITIONAL SURGERIES: Carpal Tunnel Surgery. Cholecystectomy. Dental Surgery. Hernia Repair. Medications: Ciprofloxacin-Ciproflox HCl ER Oral. Dicyclomine HCl Oral (Tablet 20 mg) 1 tablet, 4x a day. Furosemide Oral (Tablet 20 mg) 1 tablet, daily. Gabapentin Oral 100 mg, 3x a day. Lactulose Oral (Solution 20 gm/30mL), 3x a day. Propranolol HCl Oral (Tablet 10 mg) 1 tablet, 2x a day. Spironolactone Oral (Tablet 50 mg) 1 tablet, daily. Xifaxan Oral (Tablet 550 mg) 1 tablet, 2 times daily. Allergies: Penicillins. SOCIAL HISTORY Never smoker. Alcohol use. Patient is a recovering alcoholic. No drug use. ADDITIONAL NOTES The nursing notes have been reviewed. PHYSICAL EXAM Vital Signs: 12/20/2016 06:24 BP: 127/69. HR: 116. RR: 22. O2 saturation: 100%. Temp: 100.2 F. Pain level now: 02/15. Appearance: Alert. Anxious. Patient in mild distress. Eyes: Eyes normal inspection. ENT: Pharynx normal. Neck: Normal inspection. CVS: Tachycardia. Heart sounds normal. Respiratory: No respiratory distress. Breath sounds normal. Abdomen: Soft. Moderate tenderness in the periumbilical area. Abnormal bowel sounds: diminished. Back: Normal inspection. Skin: Skin warm. Normal skin color. No rash. Extremities: Extremities exhibit normal ROM. No lower extremity edema. Neuro: Oriented X 3. No motor deficit. No sensory deficit. LABS, X-RAYS, AND EKG Abdominal CT: Ascites, cirrhosis, Fluid in ascending colon with wall thickening, consider colitis. Some thickening of urinary bladder, Consider UTI. Abdominal CT performed with IV contrast. The study was interpreted by the radiologist and discussed with the radiologist. Laboratory Tests: CBC w Diff: (APOLLO: 12/20/2016 06:36) ( MsgRcvd 12/20/2016 08:14) Final results Test Result Flag Units (Reference) WHITE BLOOD COUNT 15.1 H K/uL (4.5-11.5) RED BLOOD COUNT 3.37 L M/uL (4.50-5.90) HEMOGLOBIN 11.4 L gm/dL (13.5-17.5) HEMATOCRIT 32.8 L % (41.0-53.0) MEAN CELL VOLUME 97 fL (80-100) MEAN CORPUSCULAR HGB 34 pg (26-34) MEAN CORPUSCULAR HGB CONC 35 g/dL (31-37) RED CELL DISTRIBUTION WIDTH 20.8 H % (11.6-14.8) PLATELET COUNT 62 L K/uL (150-400) Platelets decreased per smear review. POLY % 74 % (50-75) BAND % 8 % (0-8) LYMPH 8 L % (25-40) MONO 2 L % (3-14) EOSINOPHIL % 6 H % (0-4) BASOPHIL % 2 % (0-2) METAMYELOCYTE % 0 % (0-1) MYELOCYTE 0 % (0-1) OTHER CELL TYPE 0 SCHISTOCYTES OCC GIBSON CELLS OCC ACANTHOCYTES 1+ Lactate, Serum: (APOLLO: 12/20/2016 08:00) ( [facility] 12/20/2016 08:38) Final results Test Result Flag Units (Reference) LACTIC ACID 0.9 mmol/L (0.4-2.0) [id number]: (APOLLO: 12/20/2016 06:36) ( [facility] 12/20/2016 08:21) Final results Test Result Flag Units (Reference) PROCALCITONIN <0.5 ng/mL (0-0.5) PCT Concentration: Interpretation : Risk/option for action PCT <=0.5 ng/mL : Systemic : Low risk forinfection(sepsis): progression to severeis not likely. : systemic infection.Local bacterial : CAUTION-PCT levelsinfection is : below 0.5 ng/mL do notpossible. : exclude an infection,because localizedinfections (withoutsystemic signs) may beassociated with suchlow levels. If PCT ismeasured very earlyafter a bacterialchallenge (usually <6hours), these valuesmay still be low. Inthis case PCT shouldbe re-assessed 6-24hours later. PCT >0.5 and : Systemic infection: Moderate risk for<= 2 ng/mL : (sepsis) is : progression to severepossible, but : systemic infection.other conditions : The patient should beare known to : closely monitoredelevate PCT. : both clinically andby re-assessing PCTwithin 6-24 hours. PCT > 2 ng/mL : Systemic infection: High risk for(sepsis) is likely: progression to severeunless other : systemic infection.causes are known. : PCT >= 10 ng/mL : Important systemic: High likelihood ofinflammatory : severe sepsis orresponse, almost : septic shock.exclusively due to:severe bacterial :sepsis or septic :shock. : Ammonia Level: (APOLLO: 12/20/2016 06:36) ( MsgRcvd 12/20/2016 07:11) Final results Test Result Flag Units (Reference) AMMONIA 12 umol/L (11-32) CMP: (APOLLO: 12/20/2016 06:36) ( MsgRcvd 12/20/2016 07:58) Final results Test Result Flag Units (Reference) GLUCOSE 125 H mg/dL (70-110) BUN 26 H mg/dL (7-18) CREATININE 1.3 mg/dL (0.6-1.3) Estimated GFR 57.99 mL/min Estimated GFR- >60 mL/min Note: Persistent reduction over 3 months in eGFR<60 mL/min/1.73 m2 defines CKD. Patients with eGFR values>=60 mL/min/1.73 m2 may also have CKD if evidence ofpersistent proteinuria. Additional information may be foundat www.kidney.org. SODIUM 135 L mmol/L (136-145) POTASSIUM 4.6 mmol/L (3.5-5.1) CHLORIDE 102 mmol/L (98-107) CARBON DIOXIDE 25 mmol/L (21-32) CALCIUM 8.8 mg/dL (8.5-10.1) TOTAL PROTEIN 7.5 g/dL (6.4-8.2) ALBUMIN 2.9 L g/dL (3.3-5.0) BILIRUBIN, TOTAL 8.8 H mg/dL (0.0-1.0) ALKALINE PHOSPHATASE 300 H U/L (46-116) AST (SGOT) 81 H U/L (15-37) ALT (SGPT) 45 U/L (12-78) LIPASE 118 U/L (73-393) AMYLASE 55 U/L (25-115) . PROGRESS AND PROCEDURES Course of Care: Bedside abdominal US did not show a clear area of ascites that would be safe to tap to r/o peritonitis. Rocephin 2g IV Flagyl 500 mg IV Patient is stable. Symptoms better. Discussed case with on-call health care provider, (Phillip). Reviewed test results. Agreed upon treatment plan and decision to admit. Health care provider will see patient in ED. Patient/family counseled. Old medical records ordered. Disposition orders written. Disposition: Admitted to Acute Care. CLINICAL IMPRESSION Spontaneous bacterial peritonitis Colitis Cirrhosis. (Electronically signed by Marquis Jackson MD 12/21/2016 10:52)
--- NOTE | 2016-12-20 08:46 | ED CLINICAL REPORT ---
Clinical Report - Physicians/Mid Levels [facility] [address] [place] [address] 12/20/2016 6:15 Patient: MIRANDA SHANKS Time Seen: 06:36 Dec 20 2016. Arrived- By private vehicle. Historian- patient. Note: (Feels like prior episode of bacterial peritonitis.). Previous visits to this facility for similar complaints. CPT: ER phys charges level 5 (#[id number]). HISTORY OF PRESENT ILLNESS Chief Complaint: ABDOMINAL PAIN and VOMITING and NAUSEA. It is described as "pain" and it is described as located in the periumbilical area. At its maximum, severity described as moderate. When seen in the E.D., severity described as moderate. Modifying factors- worsened by movement. Not relieved by anything. This started yesterday Came on slowly and became worse today,; This started yesterday. ( Severe abd pain, vomiting started [facility] for several days). and is still present. The patient has had nausea and vomiting. Similar symptoms previously: Once, as bad. Diagnosis: (peritonitis). Recent medical care: The patient was seen recently at another facility and hospitalized. Seen for other problems. Diagnosis: (high ammonia level and lethargy, Discharged 2 days ago.). REVIEW OF SYSTEMS No constipation, black stools, hematemesis, difficulty with urination or pain with urination. No urinary frequency, fever, sore throat, chest pain or difficulty breathing. No cough, joint pain, skin rash, chills or back pain. PAST HISTORY Weakness. Dizziness. Alcoholic Liver Disease. Diabetes Mellitus. Nausea. Gastritis. Abdominal Pain. Peritonitis. Suture Removal. Murmur. Esophageal ulcers. Gastric ulcer. Kidney problems. Liver failure. Alcoholism. . ADDITIONAL SURGERIES: Carpal Tunnel Surgery. Cholecystectomy. Dental Surgery. Hernia Repair. Medications: Ciprofloxacin-Ciproflox HCl ER Oral. Dicyclomine HCl Oral (Tablet 20 mg) 1 tablet, 4x a day. Furosemide Oral (Tablet 20 mg) 1 tablet, daily. Gabapentin Oral 100 mg, 3x a day. Lactulose Oral (Solution 20 gm/30mL), 3x a day. Propranolol HCl Oral (Tablet 10 mg) 1 tablet, 2x a day. Spironolactone Oral (Tablet 50 mg) 1 tablet, daily. Xifaxan Oral (Tablet 550 mg) 1 tablet, 2 times daily. Allergies: Penicillins. SOCIAL HISTORY Never smoker. Alcohol use. Patient is a recovering alcoholic. No drug use. ADDITIONAL NOTES The nursing notes have been reviewed. PHYSICAL EXAM Vital Signs: 12/20/2016 06:24 BP: 127/69. HR: 116. RR: 22. O2 saturation: 100%. Temp: 100.2 F. Pain level now: 02/15. Appearance: Alert. Anxious. Patient in mild distress. Eyes: Eyes normal inspection. ENT: Pharynx normal. Neck: Normal inspection. CVS: Tachycardia. Heart sounds normal. Respiratory: No respiratory distress. Breath sounds normal. Abdomen: Soft. Moderate tenderness in the periumbilical area. Abnormal bowel sounds: diminished. Back: Normal inspection. Skin: Skin warm. Normal skin color. No rash. Extremities: Extremities exhibit normal ROM. No lower extremity edema. Neuro: Oriented X 3. No motor deficit. No sensory deficit. LABS, X-RAYS, AND EKG Abdominal CT: Ascites, cirrhosis, Fluid in ascending colon with wall thickening, consider colitis. Some thickening of urinary bladder, Consider UTI. Abdominal CT performed with IV contrast. The study was interpreted by the radiologist and discussed with the radiologist. Laboratory Tests: CBC w Diff: (APOLLO: 12/20/2016 06:36) ( MsgRcvd 12/20/2016 08:14) Final results Test Result Flag Units (Reference) WHITE BLOOD COUNT 15.1 H K/uL (4.5-11.5) RED BLOOD COUNT 3.37 L M/uL (4.50-5.90) HEMOGLOBIN 11.4 L gm/dL (13.5-17.5) HEMATOCRIT 32.8 L % (41.0-53.0) MEAN CELL VOLUME 97 fL (80-100) MEAN CORPUSCULAR HGB 34 pg (26-34) MEAN CORPUSCULAR HGB CONC 35 g/dL (31-37) RED CELL DISTRIBUTION WIDTH 20.8 H % (11.6-14.8) PLATELET COUNT 62 L K/uL (150-400) Platelets decreased per smear review. POLY % 74 % (50-75) BAND % 8 % (0-8) LYMPH 8 L % (25-40) MONO 2 L % (3-14) EOSINOPHIL % 6 H % (0-4) BASOPHIL % 2 % (0-2) METAMYELOCYTE % 0 % (0-1) MYELOCYTE 0 % (0-1) OTHER CELL TYPE 0 SCHISTOCYTES OCC GIBSON CELLS OCC ACANTHOCYTES 1+ Lactate, Serum: (APOLLO: 12/20/2016 08:00) ( [facility] 12/20/2016 08:38) Final results Test Result Flag Units (Reference) LACTIC ACID 0.9 mmol/L (0.4-2.0) [id number]: (APOLLO: 12/20/2016 06:36) ( [facility] 12/20/2016 08:21) Final results Test Result Flag Units (Reference) PROCALCITONIN <0.5 ng/mL (0-0.5) PCT Concentration: Interpretation : Risk/option for action PCT <=0.5 ng/mL : Systemic : Low risk forinfection(sepsis): progression to severeis not likely. : systemic infection.Local bacterial : CAUTION-PCT levelsinfection is : below 0.5 ng/mL do notpossible. : exclude an infection,because localizedinfections (withoutsystemic signs) may beassociated with suchlow levels. If PCT ismeasured very earlyafter a bacterialchallenge (usually <6hours), these valuesmay still be low. Inthis case PCT shouldbe re-assessed 6-24hours later. PCT >0.5 and : Systemic infection: Moderate risk for<= 2 ng/mL : (sepsis) is : progression to severepossible, but : systemic infection.other conditions : The patient should beare known to : closely monitoredelevate PCT. : both clinically andby re-assessing PCTwithin 6-24 hours. PCT > 2 ng/mL : Systemic infection: High risk for(sepsis) is likely: progression to severeunless other : systemic infection.causes are known. : PCT >= 10 ng/mL : Important systemic: High likelihood ofinflammatory : severe sepsis orresponse, almost : septic shock.exclusively due to:severe bacterial :sepsis or septic :shock. : Ammonia Level: (APOLLO: 12/20/2016 06:36) ( MsgRcvd 12/20/2016 07:11) Final results Test Result Flag Units (Reference) AMMONIA 12 umol/L (11-32) CMP: (APOLLO: 12/20/2016 06:36) ( MsgRcvd 12/20/2016 07:58) Final results Test Result Flag Units (Reference) GLUCOSE 125 H mg/dL (70-110) BUN 26 H mg/dL (7-18) CREATININE 1.3 mg/dL (0.6-1.3) Estimated GFR 57.99 mL/min Estimated GFR- >60 mL/min Note: Persistent reduction over 3 months in eGFR<60 mL/min/1.73 m2 defines CKD. Patients with eGFR values>=60 mL/min/1.73 m2 may also have CKD if evidence ofpersistent proteinuria. Additional information may be foundat www.[email or web address].org. SODIUM 135 L mmol/L (136-145) POTASSIUM 4.6 mmol/L (3.5-5.1) CHLORIDE 102 mmol/L (98-107) CARBON DIOXIDE 25 mmol/L (21-32) CALCIUM 8.8 mg/dL (8.5-10.1) TOTAL PROTEIN 7.5 g/dL (6.4-8.2) ALBUMIN 2.9 L g/dL (3.3-5.0) BILIRUBIN, TOTAL 8.8 H mg/dL (0.0-1.0) ALKALINE PHOSPHATASE 300 H U/L (46-116) AST (SGOT) 81 H U/L (15-37) ALT (SGPT) 45 U/L (12-78) LIPASE 118 U/L (73-393) AMYLASE 55 U/L (25-115) . PROGRESS AND PROCEDURES Course of Care: Bedside abdominal US did not show a clear area of ascites that would be safe to tap to r/o peritonitis. Rocephin 2g IV Flagyl 500 mg IV Patient is stable. Symptoms better. Discussed case with on-call health care provider, (Phillip). Reviewed test results. Agreed upon treatment plan and decision to admit. Health care provider will see patient in ED. Patient/family counseled. Old medical records ordered. Disposition orders written. Disposition: Admitted to Acute Care. CLINICAL IMPRESSION Spontaneous bacterial peritonitis Colitis Cirrhosis. (Electronically signed by Marquis Jackson MD 12/21/2016 10:52)
--- NOTE | 2016-12-20 08:58 | DIAGNOSTIC IMAGING REPORT ---
PROCEDURE: CT ABD/PELVIS WITH CONTRAST CLINICAL INDICATION: ABDOMINAL PAIN TECHNIQUE: 125 ml of Isovue 300 were injected intravenously and axial images were obtained of the entire abdomen and pelvis with sagittal and coronal reformations. COMPARISON: CT abdomen/pelvis 09/25/2016. FINDINGS: ABDOMEN: Lung base are clear. Small new small left pleural effusion. Heart size is normal . Liver measures 15.6 cm with contour irregularity. Spleen measures 21 cm. Slight decrease in mild ascites. No evidence of a liver mass. Cholecystectomy. Pancreas, splenule, adrenal glands and kidneys are normal. Minor atherosclerosis. There is fluid in the ascending colon with wall thickening. Moderate degenerative changes of the spine. PELVIS: Normal appendix. Surgical clips in the pelvis posteriorly. Normal prostate. The urinary bladder wall thickening. IMPRESSION: 1. Cirrhosis with portal hypertension and progression of splenomegaly 2. Slightly improved mild ascites 3. Cholecystectomy 4. Fluid in the ascending colon with wall thickening suggestive of colitis. Wall thickening may also be due to ascites. 5. Urinary bladder wall thickening. Consider cystitis 6. Results discussed with Dr. Jackson All CT scans at this facility use dose modulation, iterative reconstruction, and/or weight-based dosing when appropriate to reduce radiation dose to as low as reasonably achievable.
[2016-12-20 11:44] VITALS: BP 106/65
[2016-12-20] MEDS ORDERED: GABAPENTIN100 MG PO ×2 (12:58)
[2016-12-20] MEDS ORDERED: CIPROFLOXACIN750 MG PO ×2 (12:58)
[2016-12-20] MEDS ORDERED: PREVACID15 MG PO ×2 (12:59)
[2016-12-20] MEDS ORDERED: HYDROXYZINE HCL25 MG PO ×2 (12:59)
[2016-12-20] MEDS ORDERED: ABILIFY5 MG PO ×2 (12:59)
--- NOTE | 2016-12-20 13:54 | History & Physical Report ---
Information Source Information Source: Self Reliability: Fair History Chief Complaint abdominal pain History of Present Illness General Admission History and Physical Examination Patient Name: Carlos Stahl Admission Date: December 20, 2016 Primary Care Provider: [facility] Attending Physician: Franklyn Fisher M.D. Admitting Physician: Franklyn Fisher M.D. Code Status: Full Code Room: 203 SUBJECTIVE Historian: Patient Reliability: Fair Chief Complaint: Abdominal pain Cirrhosis Recurrent fever Recurrent headaches History of Present Illness: The patient is a 46-year-old white male with a significant past medical history of alcohol abuse/dependence, recurrent upper GI bleed, cirrhosis, who presented to [facility] emergency department on the day of admission secondary to complaints of abdominal pain, and poor appetite. Patient was recently admitted to [facility] for elevated ammonia levels and ascites. Patient had his ascites drained, the approximately drained 5 L. Fluid was sent for analysis however there is no evidence of acute infection or abnormal fluid contents. Patient was treated for the elevated ammonia level and patient's ammonia level returned to normal. Patient was subsequently discharged from [facility] and returned home in good health. Approximately one day ago patient started experiencing a crampy abdominal pain, with feelings of spread throughout his entire abdomen. Patient describes the pain as someone stabbing him in the abdomen, there is no specific region which is effective the most. There are no alleviating or exacerbating factors. Patient has no abnormal bowel function associated with this pain. The patient began experiencing worsening abdominal pain associated dark stools and dark urine. While in the ED, patient was seen with distention of the abdomen. Ultrasound study of the abdomen that was done as a diagnostic and therapeutic imaging protocol. There was no evidence of ascites fluid that was availabel to drain however patient was seen to have bowel wall thickening on CT scan. Patient was then admitted to general medicine for further follow-up. He reports that he had his last alcoholic beverage more than 14 months ago. [facility] ER evaluation showed the patient to have abdominal pain, low-grade fever, anxiety, depression. Chronic anemia with an H&H of 8.8/24.9. Secondary to the above the patient was admitted with a diagnosis of alcohol induced cirrhosis, potential SBP, anemia, acute abdominal pain. 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 Chronic anemia with prior workup done to assess for hemochromatosis. 3. Esophageal varices 4. Anxiety, depression 5. History of alcoholism 6. Kidney insufficiency Allergies: 1. No Known Drug Allergies Medications: 1. Dicyclomine 20 mg 4 times per day 2. Lasix 20 mg daily 3. Lactulose 20 g/30 mils oral solution; 4. Protonix 40 mg by mouth twice a day, take 30-60 mils by oral route daily. 5. Pantoprazole 40 mg 1 time daily 6. Prednisone 20 mg daily 7. Spironolactone 50 mg daily 8. Ursodiol 300 mg 2 capsules 2 times daily 9. Xifaxan 550 mg 1 tab 2 times daily Surgery: 1. Carpal tunnel surgery. 2. Cholecystectomy. 3. Dental surgery. 4. Hernia surgery Injuries: 1. No significant Hospitalizations: 1. For above medical problems FAMILY HISTORY Parents: 1. Father passed 2015 2. Mother passed 2015 SOCIAL HISTORY 1. 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 Occupational health exposures: Unknown HABITS 1. Tobacco: Previous smoker 2. Drugs: None 3. Alcohol: Discontinued all forms alcohol to use 15 months ago HEALTH SUPERVISION Item/Test 1. Not reviewed IMMUNIZATIONS: 1. Pneumococcal: No previous 2. Influenza: Unknown 3. Tetanus: Unknown Patient History 1. Cirrhosis of liver 2. Anxiety and depression 3. Acute colitis 4. Anemia Social History see above Medications and Allergies Medications Home Meds above Current Medications Sig/Melva Start time Last Medication Dose Route Stop Time Status Admin Ceftriaxone Sodium/ 50 ML DAILY 12/21 0900 AC Dextrose IV Prednisone 20 MG DAILY 12/21 0900 UNV PO Pantoprazole Sodium 40 MG DAILY@0600 12/21 0600 AC Sesquihydrate PO Rifaximin 550 MG BID 12/20 2100 UNV PO Dicyclomine HCl 20 MG QID 12/20 1800 UNV PO Lactulose 20 GM QID 12/20 1800 UNV PO Spironolactone 50 MG DAILY 12/20 1444 UNVr PO Furosemide 20 MG DAILY 12/20 1443 UNVr PO Lorazepam See Dose Q6H PRN 12/20 1215 AC 12/20 Insts (1) IV 1342 Morphine Sulfate 1 MG Q6H PRN 12/20 1215 AC 12/20 IV 1342 Sodium Chloride 1,000 ML ASDIRECTED 12/20 1215 AC IV Hydromorphone HCl 1 MG Q4H PRN 12/20 1145 AC 12/20 IV 1200 Dose Instructions: (1)Lorazepam: 1 - 2 MG Allergies Coded Allergies: Penicillin V (From Penicil VK) (09/26/16) Allergies Penicillins. --19:45 Juan Ramon Jasso R.N. Reconcile Medications Scheduled Medications Ciprofloxacin HCl (Ciprofloxacin 750 MG) 750 MG TAB 750 MG PO WEEKLY ( Reported) Dicyclomine HCl (Dicyclomine HCl 20 MG) 20 MG TAB 20 MG PO QID (Reported) Furosemide (Furosemide 20 MG) 20 MG TAB 20 MG PO DAILY (Reported) Gabapentin 100 MG CAP 100 MG PO TID (Reported) Hydroxyzine HCl (Hydroxyzine HCl 25 MG) 25 MG TAB 25 MG PO QID (Reported) Lactulose (Lactulose 10 Gm/15 Ml) ELLA 20 GM PO TID (Reported) Lansoprazole (Prevacid 15 MG) 15 MG CAP 15 MG PO DAILY (Reported) Rifaximin (Xifaxan) 550 MG TAB 550 MG PO BID (Reported) Spironolactone (Aldactone) 25 MG TAB 50 MG PO DAILY (Reported) Discontinued Medications Aripiprazole (Abilify 5 MG) 5 MG TAB 5 MG PO DAILY (Reported) Discontinued reason: Not Ordered As Home Med [FERROUS SULFATE] 325 MG PO BIDWC Discontinued reason: Not Indicated Levofloxacin Hemihydrate (Levofloxacin 500 MG) 500 MG TAB 500 MG PO DAILY@0700 Discontinued reason: No Longer Taking Pantoprazole Sodium (Pantoprazole Sodium 40 MG) 40 MG TAB 40 MG PO DAILY ( Reported) Discontinued reason: Not Ordered As Home Med Prednisone 5 MG TAB 2.5 MG PO QAM Discontinued reason: No Longer Taking Propranolol HCl 10 MG TAB 10 MG PO BID (Reported) Discontinued reason: No Longer Taking Ursodiol 300 MG CAP 600 MG PO BID (Reported) Discontinued reason: No Longer Taking Review of Systems Constitutional Chills, Sweats, Weakness, Malaise. Denies: Fever, Other. Eyes Denies: Pain, Vision Change, Conjunctival Inflammation, Eyelid Inflammation, Redness, Other. ENT Denies: Ear Pain, Ear Discharge, Nose Pain, Nasal Discharge, Nasal Congestion, Mouth Pain, Mouth Swelling, Throat Pain, Throat Swelling, Other. Respiratory Denies: Cough, Dry, SOB w/exertion, Wheezing, Hemoptysis, Pleuritic Pain, Sputum , Other. Cardiovascular Denies: Chest Pain, Palpitations, Orthopnea, PND, Edema, Light-headedness, Other. Gastrointestinal Nausea, Abdominal Pain, Diarrhea. Denies: Vomiting, Constipation, Melena, Hematochezia, Other. Genitourinary Denies: Dysuria, Frequency, Incontinence, Hematuria, Retention, Other. Musculoskeletal Denies: Neck Pain, Shoulder Pain, Arm Pain, Back Pain, Hand Pain, Leg Pain, Foot Pain, Other. Skin Denies: Rash, Lesions, Jaundice, Bruising, Other. Neurological Denies: Weakness, Numbness, Incoordination, Change in speech, Confusion, Seizures, Other. Physical Exam Vital Signs / I&Os Vital Signs Date Time Temp Pulse Resp B/P Pulse O2 O2 Flow FiO2 Ox Delivery Rate 12/20 1445 98.8 97 18 115/60 97 Room Air 12/20 1144 99.1 95 18 106/65 98 Room Air 0.0 General Appearance Alert, Oriented X3, No acute distress HEENT Atraumatic, PERRLA, Moist mucous membranes, - sceral icterus Lungs Clear to auscultation Neck Supple, No masses, No thyromegaly, No lymphadenopathy Cardiovascular Normal S1 and S2, - systolic ejection murmur present Abdomen Soft, No rebound, - diffuse abdominal tenderness - ventral wall hernia with no evidence of incarceratio n Extremities No edema, Normal pulses, No tenderness Skin No Breakdown, - jaundice Neurological Normal tone, Sensation intact, Cranial nerves intact, No lateralizing signs Psych/Mental Status Mood normal LAB Results Laboratory Tests 12/20 12/20 12/20 12/20 12/20 0636 0636 0636 0711 0800 Chemistry Plasma Sodium (136 - 145 mmol/L) 135 Plasma Potassium (3.5 - 5.1 mmol/L) 4.6 Plasma Chloride (98 - 107 mmol/L) 102 CO2 (Enzymatic) (21 - 32 mmol/L) 25 BUN (7 - 18 mg/dL) 26 Creatinine (0.6 - 1.3 mg/dL) 1.3 Est GFR ( Amer) (mL/min) >60 Est GFR (Non-Af Amer) (mL/min) 57.99 Glucose (70 - 110 mg/dL) 125 Lactic Acid (0.4 - 2.0 mmol/L) 0.9 Plasma Calcium (8.5 - 10.1 mg/dL) 8.8 Total Bilirubin (0.0 - 1.0 mg/dL) 8.8 AST (15 - 37 U/L) 81 ALT (12 - 78 U/L) 45 Alkaline Phosphatase (46 - 116 U/L) 300 Ammonia (11 - 32 umol/L) 12 Total Protein (6.4 - 8.2 g/dL) 7.5 Albumin (3.3 - 5.0 g/dL) 2.9 Amylase (25 - 115 U/L) 55 Cancelled Lipase (73 - 393 U/L) 118 Cancelled Procalcitonin (0 - 0.5 ng/mL) <0.5 Hematology WBC (4.5 - 11.5 K/uL) 15.1 RBC (4.50 - 5.90 M/uL) 3.37 Hgb (13.5 - 17.5 gm/dL) 11.4 Hct (41.0 - 53.0 %) 32.8 MCV (80 - 100 fL) 97 MCH (26 - 34 pg) 34 RDW (11.6 - 14.8 %) 20.8 Neut % (Auto) (50 - 75 %) 74 Lymph % (Auto) (25 - 40 %) 8 Bracken % (Auto) (3 - 14 %) 2 Eos % (Auto) (0 - 4 %) 6 Baso % (Auto) (0 - 2 %) 2 Band Neutrophils % (0 - 8 %) 8 Metamyelocytes % (0 - 1 %) 0 Myelocytes (0 - 1 %) 0 Other Cell Type 0 Plt Count, EDTA (150 - 400 K/uL) 62 Friona Cells OCC Acanthocytes (Spur) 1+ Schistocytes OCC PUBS MCHC (31 - 37 g/dL) 35 Microbiology Date/Time Procedure - Status Source Growth 12/20 07 Blood Culture - RECD BLOOD 12/20 0654 Blood Culture - RECD BLOOD Assessment and Plan Problem List 1. Acute colitis Plan Patient is presenting with acute abdominal pain that is diffuse in nature Patient has elevated white count and evidence of bowel thickening on CT scan Currently due to patient's symptomology it appears that the patient has colitis We'll treat the patient with Flagyl 500 mg every 6 We'll keep patient nothing by mouth with IV fluids going at 150 mL per hour We'll monitor I's and O's Diarrhea is to be expected given patient's lactulose and rifaximin schedule 2. 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 Anxiety and depression Plan Patient has history of anxiety Currently patient is not receiving any medications as an outpatient We'll treat the anxiety periodically Ativan 1 mg every 6 when necessary 4. Anemia Plan Patient has a history of anemia We'll trend CBC Currently patient is within normal limits
[2016-12-20 14:45] VITALS: BP 115/60
[2016-12-20 18:23] VITALS: BP 113/59
[2016-12-20 21:30] VITALS: BP 112/46
[2016-12-21 02:51] VITALS: BP 113/57
[2016-12-21 07:56] VITALS: BP 102/62
--- NOTE | 2016-12-21 10:52 | ED MED RECONCILIATION SUMMARY ---
Patient: MIRANDA SHANKS Medication Reconciliation Report [facility] VisitID: [id number] [place] [address] 46y, M Registration Date/Time: 12/20/2016 Weight: 102.0 kg Height/Length: 74 in. BMI: 28.9 ALLERGIES: Penicillins The patient's Home Medications are listed below: THE FOLLOWING MEDICATIONS NEED TO BE RECONCILED: Ciprofloxacin-Ciproflox HCl ER Oral Dicyclomine HCl Oral (20 mg) 1 tablet, 4x a day Furosemide Oral (20 mg) 1 tablet, daily Gabapentin Oral 100 mg, 3x a day Lactulose Oral (20 gm/30mL), 3x a day Propranolol HCl Oral (10 mg) 1 tablet, 2x a day Spironolactone Oral (50 mg) 1 tablet, daily Xifaxan Oral (550 mg) 1 tablet, 2 times daily The source(s) of the original Home Medication information: Not obtained. The following Medications were given to the patient in the Emergency Department: IV NS IV Fluids bolus 0, then 125 mL/hr, administered: 12/20/2016 7:00:00 AM Zofran [IVP] IVP 4 mg, administered: 12/20/2016 7:21:00 AM Demerol [IVP] IVP 6.25 mg, administered: 12/20/2016 7:26:00 AM Rocephin [IVPB] IVPB bolus 0, then 2 gm 150 mL/hr, administered: 12/20/2016 7:27:00 AM Flagyl [IVPB] IVPB bolus 0, then 500 mg 100 mL/hr, administered: 12/20/2016 9:46:00 AM The following Medications were prescribed to the patient: None.
--- NOTE | 2016-12-21 10:52 | ED DISCHARGE INSTRUCTIONS ---
Patient: MIRANDA SHANKS General Instructions [facility] VisitID: [id number] [address] [place] [address] 46y, M Registration Date/Time: 12/20/2016 Spontaneous bacterial peritonitis Colitis Cirrhosis. (Electronically signed by Marquis Jackson MD 12/21/2016 10:52)
--- NOTE | 2016-12-21 10:52 | ED MAR SUMMARY ---
..... Medication Administration Record [facility] [address] [place] [address] Patient: MIRANDA SHANKS Visit ID: [id number] 46y, M Weight: 102.0 kg Height/Length: 74 in BMI: 28.9 ALLERGIES: Penicillins Start 07:00 12/20/2016 Valeria Paris R.N. Medication Administered: IV NS (SALINE), Dose: IV Fluids over 4 hour(s), Rate: 125 mL/hr, Dispensed: 1000 mL bag, Site: #1 right AC. Medication Ordered: IV NS : initial bolus none -, then 125 mL/hr for 4h (NOW); Routine. Given 07:21 12/20/2016 Serenity Cam, Medication Administered: ZOFRAN [IVP] (ONDANSETRON HCL), Dose: 4 mg IVP over 2 minute(s), Site: #1 right AC. Medication Ordered: Zofran IV 4 mg (NOW). Given 07:26 12/20/2016 Serenity Cam, Medication Administered: DEMEROL [IVP] (MEPERIDINE HCL), Dose: 6.25 mg IVP over 1 minute(s), Site: #1 right AC. Medication Ordered: Demerol IV 6.25 mg IV (NOW). Start 07:27 12/20/2016 Serenity Cam,, Stop 07:45 12/20/2016 Charissa López RLmN. Medication Administered: ROCEPHIN [IVPB] (CEFTRIAXONE SODIUM), Dose: 2 gm IVPB over 20 minute(s), Rate: 150 mL/hr, Dispensed: 50 mL bag, Site: #1 right AC. Medication Ordered: Rocephin IV 2 gm/50mL (NOW). Start 09:46 12/20/2016 Yandy Elam, RLmN., Stop 10:45 12/20/2016 Yandy Elam R.N. Medication Administered: FLAGYL [IVPB] (METRONIDAZOLE IN NACL), Dose: 500 mg IVPB over 1 hour(s), Rate: 100 mL/hr, Dispensed: 500 mL bag, Site: #1 right AC. Medication Ordered: Flagyl IV 500 mg/100mL (NOW).
--- NOTE | 2016-12-21 10:52 | ED MED RECONCILIATION SUMMARY ---
Patient: MIRANDA SHANKS Medication Reconciliation Report [facility] VisitID: [id number] [place] [address] 46y, M Registration Date/Time: 12/20/2016 Weight: 102.0 kg Height/Length: 74 in. BMI: 28.9 ALLERGIES: Penicillins The patient's Home Medications are listed below: THE FOLLOWING MEDICATIONS NEED TO BE RECONCILED: Ciprofloxacin-Ciproflox HCl ER Oral Dicyclomine HCl Oral (20 mg) 1 tablet, 4x a day Furosemide Oral (20 mg) 1 tablet, daily Gabapentin Oral 100 mg, 3x a day Lactulose Oral (20 gm/30mL), 3x a day Propranolol HCl Oral (10 mg) 1 tablet, 2x a day Spironolactone Oral (50 mg) 1 tablet, daily Xifaxan Oral (550 mg) 1 tablet, 2 times daily The source(s) of the original Home Medication information: Not obtained. The following Medications were given to the patient in the Emergency Department: IV NS IV Fluids bolus 0, then 125 mL/hr, administered: 12/20/2016 7:00:00 AM Zofran [IVP] IVP 4 mg, administered: 12/20/2016 7:21:00 AM Demerol [IVP] IVP 6.25 mg, administered: 12/20/2016 7:26:00 AM Rocephin [IVPB] IVPB bolus 0, then 2 gm 150 mL/hr, administered: 12/20/2016 7:27:00 AM Flagyl [IVPB] IVPB bolus 0, then 500 mg 100 mL/hr, administered: 12/20/2016 9:46:00 AM The following Medications were prescribed to the patient: None.
--- NOTE | 2016-12-21 10:52 | ED MAR SUMMARY ---
..... Medication Administration Record [facility] [address] [place] [address] Patient: MIRANDA SHANKS Visit ID: [id number] 46y, M Weight: 102.0 kg Height/Length: 74 in BMI: 28.9 ALLERGIES: Penicillins Start 07:00 12/20/2016 Valeria Paris R.N. Medication Administered: IV NS (SALINE), Dose: IV Fluids over 4 hour(s), Rate: 125 mL/hr, Dispensed: 1000 mL bag, Site: #1 right AC. Medication Ordered: IV NS : initial bolus none -, then 125 mL/hr for 4h (NOW); Routine. Given 07:21 12/20/2016 Serenity Cam, Medication Administered: ZOFRAN [IVP] (ONDANSETRON HCL), Dose: 4 mg IVP over 2 minute(s), Site: #1 right AC. Medication Ordered: Zofran IV 4 mg (NOW). Given 07:26 12/20/2016 Serenity Cam, Medication Administered: DEMEROL [IVP] (MEPERIDINE HCL), Dose: 6.25 mg IVP over 1 minute(s), Site: #1 right AC. Medication Ordered: Demerol IV 6.25 mg IV (NOW). Start 07:27 12/20/2016 Serenity Cam,, Stop 07:45 12/20/2016 Charissa López RLmN. Medication Administered: ROCEPHIN [IVPB] (CEFTRIAXONE SODIUM), Dose: 2 gm IVPB over 20 minute(s), Rate: 150 mL/hr, Dispensed: 50 mL bag, Site: #1 right AC. Medication Ordered: Rocephin IV 2 gm/50mL (NOW). Start 09:46 12/20/2016 Yandy Elam, RLmN., Stop 10:45 12/20/2016 Yandy Elam R.N. Medication Administered: FLAGYL [IVPB] (METRONIDAZOLE IN NACL), Dose: 500 mg IVPB over 1 hour(s), Rate: 100 mL/hr, Dispensed: 500 mL bag, Site: #1 right AC. Medication Ordered: Flagyl IV 500 mg/100mL (NOW).
--- NOTE | 2016-12-21 10:52 | ED DISCHARGE INSTRUCTIONS ---
Patient: MIRANDA SHANKS General Instructions [facility] VisitID: [id number] [address] [place] [address] 46y, M Registration Date/Time: 12/20/2016 Spontaneous bacterial peritonitis Colitis Cirrhosis. (Electronically signed by Marquis Jackson MD 12/21/2016 10:52)
[2016-12-21 11:02] VITALS: BP 108/62
--- NOTE | 2016-12-21 14:03 | Progress Note ---
Subjective General Patient seen and examined. Patient has no complaints at the moment. Patient claims his abdominal pain is improved compared to yesterday. Patient was told that if his abdominal pain continues to improve we will start a diet. Constitutional Denies: Fever, Chills, Sweats, Weakness, Malaise, Other. Eyes Denies: Pain, Vision Change, Conjunctival Inflammation, Eyelid Inflammation, Redness, Other. Respiratory Denies: Cough, Dry, SOB w/exertion, Wheezing, Hemoptysis, Pleuritic Pain, Sputum , Other. Cardiovascular Denies: Chest Pain, Palpitations, Orthopnea, PND, Edema, Light-headedness, Other. Gastrointestinal Abdominal Pain, Diarrhea. Denies: Nausea, Vomiting, Constipation, Melena, Hematochezia, Other. Genitourinary Denies: Dysuria, Frequency, Incontinence, Hematuria, Retention, Other. Musculoskeletal Denies: Neck Pain, Shoulder Pain, Arm Pain, Back Pain, Hand Pain, Leg Pain, Foot Pain, Other. Skin Denies: Rash, Lesions, Jaundice, Bruising, Other. Neurological Denies: Weakness, Numbness, Incoordination, Change in speech, Confusion, Seizures, Other. Physical Exam Vital Signs / I&Os Vital Signs Date Time Temp Pulse Resp B/P Pulse O2 O2 Flow FiO2 Ox Delivery Rate 12/21 1102 99.1 86 18 108/62 99 Room Air 0.0 12/21 0822 95 12/21 0756 99.0 91 18 102/62 99 Room Air 0.0 12/21 0251 99.0 95 17 113/57 99 Room Air 12/20 2130 99.7 90 18 112/46 97 Room Air 12/20 1823 99.0 88 18 113/59 98 Room Air 12/20 1625 Room Air 12/20 1445 98.8 97 18 115/60 97 Room Air I&O 12/20 0800 12/20 1600 12/21 0000 Intake Total 0 780 Output Total 0 800 Balance 0 -20 General Appearance Alert, Oriented X3, No acute distress HEENT Atraumatic, PERRLA, Moist mucous membranes Lungs Clear to auscultation Neck No JVD, No masses Cardiovascular Regular rate and rhythm, Normal S1 and S2, - systolic ejection murmur Abdomen Soft, - tenderness to the lower quadrants on palpation Extremities No edema, Normal pulses Skin - diffuse jaundice Neurological Normal speech, Sensation intact, Cranial nerves intact, No lateralizing signs Psych/Mental Status Mood normal LAB Results Laboratory Tests 12/20 12/21 1545 0630 Chemistry Plasma Sodium (136 - 145 mmol/L) 141 Plasma Potassium (3.5 - 5.1 mmol/L) 4.4 Plasma Chloride (98 - 107 mmol/L) 108 CO2 (Enzymatic) (21 - 32 mmol/L) 26 BUN (7 - 18 mg/dL) 27 Creatinine (0.6 - 1.3 mg/dL) 1.2 Est GFR ( Amer) (mL/min) >60 Est GFR (Non-Af Amer) (mL/min) >60 Glucose (70 - 110 mg/dL) 124 Plasma Calcium (8.5 - 10.1 mg/dL) 8.0 Plasma Magnesium (1.8 - 2.4 mg/dL) 1.9 Total Bilirubin (0.0 - 1.0 mg/dL) 9.8 AST (15 - 37 U/L) 57 ALT (12 - 78 U/L) 32 Alkaline Phosphatase (46 - 116 U/L) 159 Total Protein (6.4 - 8.2 g/dL) 5.8 Albumin (3.3 - 5.0 g/dL) 2.4 Lipase (73 - 393 U/L) 111 Hematology WBC (4.5 - 11.5 K/uL) 7.0 RBC (4.50 - 5.90 M/uL) 2.58 Hgb (13.5 - 17.5 gm/dL) 8.7 Hct (41.0 - 53.0 %) 25.2 MCV (80 - 100 fL) 98 MCH (26 - 34 pg) 34 RDW (11.6 - 14.8 %) 20.2 Neut % (Auto) (50 - 75 %) 72.0 Lymph % (Auto) (25 - 40 %) 9.7 [place] % (Auto) (3 - 14 %) 11.9 Eos % (Auto) (0 - 4 %) 6.4 Baso % (Auto) (0 - 2 %) 0 Plt Count, EDTA (150 - 400 K/uL) 35 RBC Morphology (34876 A) 1+ POIKILOCYTOSIS PUBS MCHC (31 - 37 g/dL) 35 Urines Urine Color [place] Urine Appearance CLEAR Urine pH (5.0 - 8.0) 6.5 Ur Specific [employer] (1.010 - 1.030) 1.010 Urine Protein (NEGATIVE) NEGATIVE Urine Ketones (NEGATIVE) NEGATIVE Urine Blood (NEGATIVE) NEGATIVE Urine Nitrite (NEGATIVE) NEGATIVE Ur Bilirubin Confirm (NEGATIVE) POSITIVE Urine Urobilinogen (0.2 - 1.0 EU/dL) 1.0 Ur Leukocyte Esterase (NEGATIVE) NEGATIVE Urine RBC (0 - 1 rbc/hpf) NONE SEEN Urine WBC (0 - 1 wbc/hpf) NONE SEEN Ur Epithelial Cells (0 - 5 EPI/hpf) NONE SEEN Urine Bacteria (NONE SEEN) NONE SEEN Urine Glucose (NEGATIVE) NEGATIVE Urine Comment CULT NOT INDICATED Assessment and Plan Problem List 1. Acute colitis Plan Patient has evidence of bacterial colitis on CT scan This coincides with the presentation of abdominal pain the patient is experiencing Currently patient's weight is improved compared to the day before We'll continue with ceftriaxone and Flagyl for the time being Will advance diet to clear liquid diet and patient is able tolerate it we'll consider advancing further Patient will ultimately need 10 days of antibiotics 2. Coagulopathy Status Chronic Onset Date Unknown Plan Patient has known coagulopathy and low platelet levels stemming from his liver cirrhosis Patient has no jim evidence of bleeding We'll continue to trend CBC and platelet level 3. Anemia Plan Patient has evidence of iron deficiency anemia coupled with anemia secondary to chronic disease Currently he would not benefit the patient to take iron supplementation due to increased liver dysfunction We'll continue to trend patient's CBC and monitor We'll look to keep hemoglobin above 8 4. Cirrhosis of liver Plan Patient has a known history of liver cirrhosis Stemming from alcohol abuse Currently patient is medically optimized in terms of management of his disease We'll continue with medication Jania to his disease process
[2016-12-21 14:27] VITALS: BP 108/63
[2016-12-21 18:35] VITALS: BP 106/58
[2016-12-21 22:45] VITALS: BP 103/61
[2016-12-22 03:34] VITALS: BP 98/57
[2016-12-22 07:34] VITALS: BP 100/67
[2016-12-22 10:49] VITALS: BP 109/69
[2016-12-22 14:45] VITALS: BP 98/66
--- NOTE | 2016-12-22 15:45 | Progress Note ---
Subjective General Patient seen and examined. Patient was able tolerate a clear liquid diet today. We'll advance diet to regular diet today to see how patient tolerates it. We' ll repeat a.m. labs in the morning Constitutional Denies: Fever, Chills, Sweats, Weakness, Malaise, Other. Eyes Denies: Pain, Vision Change, Conjunctival Inflammation, Eyelid Inflammation, Redness, Other. Respiratory Denies: Cough, Dry, SOB w/exertion, Wheezing, Hemoptysis, Pleuritic Pain, Sputum , Other. Cardiovascular Denies: Chest Pain, Palpitations, Orthopnea, PND, Edema, Light-headedness, Other. Gastrointestinal Abdominal Pain. Denies: Nausea, Vomiting, Diarrhea, Constipation, Melena, Hematochezia, Other. Genitourinary Denies: Dysuria, Frequency, Incontinence, Hematuria, Retention, Other. Musculoskeletal Denies: Neck Pain, Shoulder Pain, Arm Pain, Back Pain, Hand Pain, Leg Pain, Foot Pain, Other. Skin Denies: Rash, Lesions, Jaundice, Bruising, Other. Neurological Denies: Weakness, Numbness, Incoordination, Change in speech, Confusion, Seizures, Other. Physical Exam Vital Signs / I&Os Vital Signs Date Time Temp Pulse Resp B/P Pulse O2 O2 Flow FiO2 Ox Delivery Rate 12/22 1445 98.2 78 18 98/66 97 Room Air 12/22 1049 98.2 97 20 109/69 100 Room Air 0.0 12/22 0734 97.9 87 20 100/67 100 Room Air 0.0 12/22 0334 98.4 93 20 98/57 94 Room Air 12/22 0012 0.0 12/21 2245 98.8 104 18 103/61 97 Room Air 12/21 1835 98.2 89 18 106/58 100 Room Air 12/21 1709 Room Air I&O 12/21 0800 12/21 1600 12/22 0000 Intake Total 456 937 7457 Output Total 650 400 Balance 936 552 7637 General Appearance Alert, Oriented X3, No acute distress HEENT Atraumatic, PERRLA Lungs Clear to auscultation Cardiovascular Regular rate and rhythm, Normal S1 and S2, - systolic ejection murmur Abdomen Soft, - inconsistent areas of tenderness Extremities No edema, Normal pulses, No tenderness Skin - diffusely jaundiced Neurological Normal gait, Normal speech, Normal tone, Cranial nerves intact, No lateralizing signs Psych/Mental Status Mood normal LAB Results Laboratory Tests 12/22 0545 Chemistry Plasma Sodium (136 - 145 mmol/L) 134 Plasma Potassium (3.5 - 5.1 mmol/L) 3.8 Plasma Chloride (98 - 107 mmol/L) 102 CO2 (Enzymatic) (21 - 32 mmol/L) 24 BUN (7 - 18 mg/dL) 25 Creatinine (0.6 - 1.3 mg/dL) 1.1 Est GFR ( Amer) (mL/min) >60 Est GFR (Non-Af Amer) (mL/min) >60 Glucose (70 - 110 mg/dL) 138 Plasma Calcium (8.5 - 10.1 mg/dL) 7.8 Total Bilirubin (0.0 - 1.0 mg/dL) 9.5 AST (15 - 37 U/L) 53 ALT (12 - 78 U/L) 33 Alkaline Phosphatase (46 - 116 U/L) 139 Total Protein (6.4 - 8.2 g/dL) 5.7 Albumin (3.3 - 5.0 g/dL) 2.4 Hematology WBC (4.5 - 11.5 K/uL) 8.1 RBC (4.50 - 5.90 M/uL) 2.60 Hgb (13.5 - 17.5 gm/dL) 8.9 Hct (41.0 - 53.0 %) 25.5 MCV (80 - 100 fL) 98 MCH (26 - 34 pg) 34 RDW (11.6 - 14.8 %) 19.5 Neut % (Auto) (50 - 75 %) 59 Lymph % (Auto) (25 - 40 %) 19 [place] % (Auto) (3 - 14 %) 17 Eos % (Auto) (0 - 4 %) 5 Baso % (Auto) (0 - 2 %) 0 Band Neutrophils % (0 - 8 %) 0 Metamyelocytes % (0 - 1 %) 0 Myelocytes (0 - 1 %) 0 Other Cell Type 0 Plt Count, EDTA (150 - 400 K/uL) 40 PUBS MCHC (31 - 37 g/dL) 35 Assessment and Plan Problem List 1. Acute colitis Plan Patient has evidence of colitis on CT scan Patient is able to tolerate a diet without much difficulty at the present time Patient still has abdominal pain however is much improved compared to the day of admission Patient will have his diet advanced as tolerated We'll continue with Flagyl and ceftriaxone 2. Coagulopathy Status Chronic Onset Date Unknown Plan Coagulopathy secondary to liver cirrhosis Continue to trend CBC while inpatient Patient will need to go to his aviation safety equipment technician as an outpatient 3. Cirrhosis of liver Plan Established history of cirrhosis of liver Currently patient is awaiting liver transplant Medications are appropriate for patient's degree of cirrhosis We'll continue with spironolactone, lactulose, rifaximin and bile salt binders
[2016-12-22 18:00] VITALS: BP 104/68
[2016-12-22 22:39] VITALS: BP 98/56
[2016-12-23 02:46] VITALS: BP 94/51
[2016-12-23 03:53] VITALS: BP 110/68
[2016-12-23 07:25] VITALS: BP 109/60
[2016-12-23] MEDS ORDERED: FLAGYL500 MG PO ×2 (09:43)
--- NOTE | 2016-12-23 09:45 | Provider's Discharge Care Plan ---
Problem, Goal, Plan Problem List 1. Acute colitis Instructions: - finish course of antibiotics 2. Coagulopathy Instructions: - follow up appointment with your rn circulating 3. Cirrhosis of liver Instructions: - c/w cirrhosis medications
--- NOTE | 2016-12-23 09:45 | Provider's Discharge Care Plan ---
Problem, Goal, Plan Problem List 1. Acute colitis Instructions: - finish course of antibiotics 2. Coagulopathy Instructions: - follow up appointment with your transformation architect 3. Cirrhosis of liver Instructions: - c/w cirrhosis medications
[2016-12-23 11:11] VITALS: BP 98/56
--- NOTE | 2016-12-23 12:52 | Discharge Summary ---
Discharge Summary Report Admit Date 12/20/16 Discharge Date 12/23/16 Admission Diagnosis Abdominal pain Discharge Diagnosis Colitis Brief History Please refer to admission H&P Hospital Course Patient initially presented with abdominal pain. Patient was seen to be hemodynamically stable with no evidence of spontaneous bacterial peritonitis. However CT scan was done which showed the evidence of small bowel thickening. Given his presentation and symptoms the diagnoses of colitis was made. Patient was put on IV antibiotics and kept nothing by mouth. He resumed all his home medication during this time. Patient on day 2 was seen to do better, it was told to the patient that if he took the antibiotics and had minimal abdominal pain we could talk about starting a diet. Patient was able to tolerate clear liquid diets and day 2. The next day patient's abdominal pain improved even more and the patient was able tolerate a regular diet. On top of this it was noticed that the patient's platelet count was subtherapeutic at 35. Patient did not have any evidence of acute bleeding nor did he have any evidence of dropping hemoglobins. On day 3. He was able tolerate a regular diet without any sort of abdominal pain. It was then decided the patient should be discharged. Patient will be discharged home. He will follow-up with his hydrocrane operator, and his marketing assistant manager. Both appointments the patient has her next week. A call was made to patient's marketing assistant manager will let them about the low platelet levels. Patient will be discharged he will resume all his home medication and follow-up as mentioned before General Appearance Alert, Oriented X3, No acute distress HEENT PERRLA Lungs Normal air movement Cardiovascular Normal S1, Normal S2, No murmurs Abdomen Soft, No tenderness, No hepatospenomegaly Skin No Breakdown Neurological Normal speech, Normal tone Lab/Imaging Laboratory Tests 12/23 0600 Chemistry Plasma Sodium (136 - 145 mmol/L) 134 Plasma Potassium (3.5 - 5.1 mmol/L) 4.5 Plasma Chloride (98 - 107 mmol/L) 104 CO2 (Enzymatic) (21 - 32 mmol/L) 25 BUN (7 - 18 mg/dL) 19 Creatinine (0.6 - 1.3 mg/dL) 1.2 Est GFR ( Amer) (mL/min) >60 Est GFR (Non-Af Amer) (mL/min) >60 Glucose (70 - 110 mg/dL) 114 Plasma Calcium (8.5 - 10.1 mg/dL) 7.7 Total Bilirubin (0.0 - 1.0 mg/dL) 7.6 AST (15 - 37 U/L) 41 ALT (12 - 78 U/L) 30 Alkaline Phosphatase (46 - 116 U/L) 159 Total Protein (6.4 - 8.2 g/dL) 5.6 Albumin (3.3 - 5.0 g/dL) 2.3 Hematology WBC (4.5 - 11.5 K/uL) 6.3 RBC (4.50 - 5.90 M/uL) 2.45 Hgb (13.5 - 17.5 gm/dL) 8.4 Hct (41.0 - 53.0 %) 23.5 MCV (80 - 100 fL) 96 MCH (26 - 34 pg) 34 RDW (11.6 - 14.8 %) 19.2 Neut % (Auto) (50 - 75 %) 66 Lymph % (Auto) (25 - 40 %) 15 [place] % (Auto) (3 - 14 %) 10 Eos % (Auto) (0 - 4 %) 6 Baso % (Auto) (0 - 2 %) 0 Band Neutrophils % (0 - 8 %) 3 Metamyelocytes % (0 - 1 %) 0 Myelocytes (0 - 1 %) 0 Other Cell Type 0 Plt Count, EDTA (150 - 400 K/uL) 39 PUBS MCHC (31 - 37 g/dL) 36 Discharge Instructions/Meds Complete course of antibiotics Continue with all your home medications Follow-up with her marketing assistant manager and hydrocrane operator next week
--- NOTE | 2016-12-23 12:52 | Discharge Summary ---
Discharge Summary Report Admit Date 12/20/16 Discharge Date 12/23/16 Admission Diagnosis Abdominal pain Discharge Diagnosis Colitis Brief History Please refer to admission H&P Hospital Course Patient initially presented with abdominal pain. Patient was seen to be hemodynamically stable with no evidence of spontaneous bacterial peritonitis. However CT scan was done which showed the evidence of small bowel thickening. Given his presentation and symptoms the diagnoses of colitis was made. Patient was put on IV antibiotics and kept nothing by mouth. He resumed all his home medication during this time. Patient on day 2 was seen to do better, it was told to the patient that if he took the antibiotics and had minimal abdominal pain we could talk about starting a diet. Patient was able to tolerate clear liquid diets and day 2. The next day patient's abdominal pain improved even more and the patient was able tolerate a regular diet. On top of this it was noticed that the patient's platelet count was subtherapeutic at 35. Patient did not have any evidence of acute bleeding nor did he have any evidence of dropping hemoglobins. On day 3. He was able tolerate a regular diet without any sort of abdominal pain. It was then decided the patient should be discharged. Patient will be discharged home. He will follow-up with his employee services manager, and his oncology nurse. Both appointments the patient has her next week. A call was made to patient's oncology nurse will let them about the low platelet levels. Patient will be discharged he will resume all his home medication and follow-up as mentioned before General Appearance Alert, Oriented X3, No acute distress HEENT PERRLA Lungs Normal air movement Cardiovascular Normal S1, Normal S2, No murmurs Abdomen Soft, No tenderness, No hepatospenomegaly Skin No Breakdown Neurological Normal speech, Normal tone Lab/Imaging Laboratory Tests 12/23 0600 Chemistry Plasma Sodium (136 - 145 mmol/L) 134 Plasma Potassium (3.5 - 5.1 mmol/L) 4.5 Plasma Chloride (98 - 107 mmol/L) 104 CO2 (Enzymatic) (21 - 32 mmol/L) 25 BUN (7 - 18 mg/dL) 19 Creatinine (0.6 - 1.3 mg/dL) 1.2 Est GFR ( Amer) (mL/min) >60 Est GFR (Non-Af Amer) (mL/min) >60 Glucose (70 - 110 mg/dL) 114 Plasma Calcium (8.5 - 10.1 mg/dL) 7.7 Total Bilirubin (0.0 - 1.0 mg/dL) 7.6 AST (15 - 37 U/L) 41 ALT (12 - 78 U/L) 30 Alkaline Phosphatase (46 - 116 U/L) 159 Total Protein (6.4 - 8.2 g/dL) 5.6 Albumin (3.3 - 5.0 g/dL) 2.3 Hematology WBC (4.5 - 11.5 K/uL) 6.3 RBC (4.50 - 5.90 M/uL) 2.45 Hgb (13.5 - 17.5 gm/dL) 8.4 Hct (41.0 - 53.0 %) 23.5 MCV (80 - 100 fL) 96 MCH (26 - 34 pg) 34 RDW (11.6 - 14.8 %) 19.2 Neut % (Auto) (50 - 75 %) 66 Lymph % (Auto) (25 - 40 %) 15 [place] % (Auto) (3 - 14 %) 10 Eos % (Auto) (0 - 4 %) 6 Baso % (Auto) (0 - 2 %) 0 Band Neutrophils % (0 - 8 %) 3 Metamyelocytes % (0 - 1 %) 0 Myelocytes (0 - 1 %) 0 Other Cell Type 0 Plt Count, EDTA (150 - 400 K/uL) 39 PUBS MCHC (31 - 37 g/dL) 36 Discharge Instructions/Meds Complete course of antibiotics Continue with all your home medications Follow-up with her oncology nurse and employee services manager next week
== END 2016-12-23 10:50 | disposition home or self-care (01) | DRG 248 ==
LOC: ED SRH 06:14 → TRANS SRH 09:24 → ACUTE2 SRH 09:25
PROVIDERS: ADMIT Emergency Medicine
DX: A04.9 Bacterial intestinal infection, unspecified (principal); K70.30 Alcoholic cirrhosis of liver without ascites; D68.4 Acquired coagulation factor deficiency; I85.10 Secondary esophageal varices without bleeding; F10.21 Alcohol dependence, in remission; D63.8 Anemia in other chronic diseases classified elsewhere; F32.9 Major depressive disorder, single episode, unspecified; F41.9 Anxiety disorder, unspecified
CPT/HCPCS: 90004; 90065; 90074; 90100; 91588; 91643; 92031; 92235; 92530; 92720; 93004; 95059

== ENCOUNTER 2016-12-24 14:46 | Emergency (ER) | payer OTHER ==
[~2016-12-24 14:46] MED LIST changes: +ABILIFY5 MG PO; +CIPROFLOXACIN750 MG PO; +FLAGYL500 MG PO; +GABAPENTIN100 MG PO; +HYDROXYZINE HCL25 MG PO; +PREVACID15 MG PO
--- NOTE | 2016-12-24 15:21 | DIAGNOSTIC IMAGING REPORT ---
PROCEDURE: XR CHEST 1 VIEW INDICATION: SHORTNESS OF BREATH TECHNIQUE: Portable AP view 03:05 p.m. COMPARISON: Abdominal CT 12/20/16 FINDINGS: Lungs are clear. Heart and mediastinum are normal. Thorax is normal. IMPRESSION: 1. Negative chest.
--- NOTE | 2016-12-24 18:30 | DIAGNOSTIC IMAGING REPORT ---
PROCEDURE: CTA THORAX ABDOMEN PELVIS INDICATION: Left lower quadrant abdominal pain TECHNIQUE: 100 ml of Isovue 370 was injected intravenously and axial images were obtained of the chest, abdomen, and pelvis with 3D sagittal and coronal MIP reconstructions. COMPARISON: 12/20/2016 FINDINGS: Thoracic aorta is normal caliber. No evidence of aneurysm, dissection, ulceration, or hematoma. 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 Normal opacification of the Sign pulmonary arterial tree without filling defect. The central pulmonary arteries are normal caliber. Heart size is normal. No pericardial effusion. A few slightly prominent aorticopulmonary and mediastinal lymph nodes. No bulky adenopathy or suspicious mediastinal mass. The esophagus is normal in caliber without hiatal hernia. The airway is patent and branches normally. Very small bilateral pleural effusions, small left and trace right, layering dependently with associated trace atelectasis. Mild anterior subpleural interstitial thickening in the lingula. Degenerative change at the first rib and sternal junction. The abdominal aorta is normal in course, contour, and caliber. Renal arteries and superior mesenteric arteries are patent. The inferior mesenteric artery is visible and patent. Iliac bifurcations appear normal. Moderate intra-abdominal ascites. There has been mild increase in ascites since the prior study. Splenomegaly, 21.4 cm in AP diameter. Morphologic changes of cirrhosis. Surgically absent gallbladder. Normal adrenal glands, pancreas, and kidneys. Diffusely congested mesentery. The proximal colon is suboptimally seen. Some small bowel loops are slightly prominent. Occasional air fluid levels. Moderate pelvic ascites. Normal pelvic vessels, prostate gland, urinary bladder. Small fluid containing umbilical hernia with a narrow neck. Moderate anterior subcutaneous edema. Intact osseous structures with degenerative endplate changes. IMPRESSION: 1. Normal thoracic and abdominal aorta, and branches without evidence of pathology. 2. Abdominal ascites, and mild anasarca, slightly increased compared to the most recent prior study. 3. Small bilateral pleural effusions greater than right. 4. Cirrhosis, portal hypertension, and splenomegaly. 5. Discussed with Dr. Chavez in the emergency room.
--- NOTE | 2016-12-24 20:57 | ED ORDER SUMMARY ---
..... Patient: MIRANDA SHANKS OrderSheet [facility] VisitID: [id number] [place] [address] 46y, M Registration Date/Time: 12/24/2016 ORDER SHEET Weight: 102.0 kg (stated) Allergies: Penicillins GENERAL ORDERS: Chest 1V Urgent (14:52 12/24/2016 Kleber Schultz) (Ack 14:55 AMcQuoid ER Tech1) (15:12 JBoardley R.N.) Cardiac Panel Stat (14:52 12/24/2016 Kleber Schultz) (Ack 14:55 AMcQuoid ER Tech1) (15:12 JBoardley R.N.) BNP Urgent (14:52 12/24/2016 Kleber Schultz) (Ack 14:55 AMcQuoid ER Tech1) (15:12 JBoardley R.N.) D-Dimer Urgent (14:52 12/24/2016 Kleber Schultz) (Ack 14:55 AMcQuoid ER Tech1) (15:12 JBoardley R.N.) UA-Culture if indicated Urgent (14:52 12/24/2016 Kleber Schultz) (Ack 14:55 AMcQuoid ER Tech1) (16:39 JBoardley R.N.) Urine Drug Screen Urgent (14:52 12/24/2016 Kleber Schultz) (Ack 14:55 AMcQuoid ER Tech1) (16:39 JBoardley R.N.) EKG - ER Stat (14:52 12/24/2016 Kleber Schultz) (Ack 14:55 AMcQuoid ER Tech1) (14:55 AMcQuoid ER Tech1) Lactate, Serum Urgent (15:33 12/24/2016 JBoardley R.N. verbal order read back to Kleber Schultz) (Ack 15:45 AMcQuoid ER Tech1) (16:09 JBoardley R.N.) Ammonia Level Urgent (15:33 12/24/2016 JBoardley R.N. verbal order read back to Kleber Schultz) (Ack 15:45 AMcQuoid ER Tech1) (16:09 JBoardley R.N.) CTA Thorax/Abdomen/Pelvis (No) (18/1.3) Urgent (15:58 12/24/2016 Kleber Schultz) (Ack 16:00 AMcQuoid ER Tech1) (16:39 JBoardley R.N.) MEDICATION ORDERS: IV FLUIDS: IV NS : initial bolus none -, then 1000 mL/hr for X1 (NOW) (14:52 12/24/2016 Kleber Schultz) (14:59 JBoardley R.N.) Morphine IV 4 mg (HIGH ALERT MEDICATION, NOW) (15:19 12/24/2016 JBoardley R.N. verbal order read back to Kleber Schultz) (15:20 JBoardley R.N.) Zofran IV 4 mg (NOW) (15:20 12/24/2016 JBoardlejyoti R.N. verbal order read back to Kleber Schultz) (15:20 JBoardley R.N.) IV NS : initial bolus none -, then 150 mL/hr for 8h (NOW) (16:43 12/24/2016 JBoardley R.N. verbal order read back to Kleber Schultz) (16:44 JBoardley R.N.) Morphine IV 4 mg (HIGH ALERT MEDICATION, NOW) (19:19 12/24/2016 Kleber Schultz) (19:25 HSoule) Zofran IV 4 mg (NOW) (19:19 12/24/2016 Kleber Schultz) (19:24 HSoule) ORDER SHEET NOTES: [Electronically signed by Serenity Cam (22:36 12/24/2016)] [Electronically signed by Juan Pablo Chavez Dr. (08:36 12/25/2016)] [Electronically locked/signed by Serenity Cam (22:36 12/24/2016)]
--- NOTE | 2016-12-24 20:57 | ED CLINICAL REPORT ---
Clinical Report - Physicians/Mid Levels [facility] [address] [place] [address] 12/24/2016 14:46 Patient: MIRANDA SHANKS Time Seen: 14:51; initial patient contact. Arrived- By ambulance. Historian- patient. HISTORY OF PRESENT ILLNESS Chief Complaint: PALPITATIONS. This started today and is still present. Onset during rest. It was gradual in onset. It is described as a fast heart beat. He complains of weakness. Modifying factors. Not worsened by anything. Not relieved by anything. The patient has had difficulty breathing, chest pain and dizziness. No sweating episodes, fainting episodes, tingling or muscle spasms. Similar symptoms previously: Many times. Recent medical care: The patient was seen recently at this facility and hospitalized. REVIEW OF SYSTEMS No fever, chills, cough, orthopnea or calf pain. No vomiting or diarrhea. He has had nausea and abdominal pain. All systems otherwise negative, except as recorded above. PAST HISTORY Weakness. Dizziness. Alcoholic Liver Disease. Diabetes Mellitus. Nausea. Gastritis. Abdominal Pain. Peritonitis. Suture Removal. Murmur. Esophageal ulcers. Gastric ulcer. Kidney problems. Liver failure. Alcoholism. Anemia. ADDITIONAL SURGERIES: Carpal Tunnel Surgery. Cholecystectomy. Dental Surgery. Hernia Repair. Medications: Gabapentin Oral 100 mg, 3x a day. Lactulose Oral (Solution 20 gm/30mL), 3x a day. Propranolol HCl Oral (Tablet 10 mg) 1 tablet, 2x a day. Spironolactone Oral (Tablet 50 mg) 1 tablet, daily. Xifaxan Oral (Tablet 550 mg) 1 tablet, 2 times daily. Ciprofloxacin-Ciproflox HCl ER Oral. Dicyclomine HCl Oral (Tablet 20 mg) 1 tablet, 4x a day. Furosemide Oral (Tablet 20 mg) 1 tablet, daily. Allergies: Penicillins. SOCIAL HISTORY Smoker - current status unknown. Alcohol use. Patient is a recovering alcoholic. ADDITIONAL NOTES The nursing notes have been reviewed. PHYSICAL EXAM Vital Signs: 12/24/2016 14:48 BP: 153/70. HR: 133. RR: 36. O2 saturation: 100%. Temp: 98.5 F. Pain level now: 03/17. Have been reviewed. Hypertensive. Tachycardic. Respiratory rate normal. Temperature normal. Oxygen saturation normal. Appearance: Alert. Oriented X3. No acute distress. ENT: Pharynx normal. Neck: Normal inspection. No JVD. CVS: Tachycardia. Heart sounds normal. Rhythm normal. Respiratory: Mild respiratory distress with hyperventilation. Breath sounds normal. Abdomen: Soft. Moderate tenderness diffusely with guarding present. No rebound tenderness or Concepcion's, obturator or psoas sign present. Bowel sounds normal. Mild hepatomegaly. No mass. Back: Normal external inspection. No CVA tenderness. Skin: Skin warm and dry. Normal skin color. Extremities: No lower extremity edema. Neuro: Oriented X 3. LABS, X-RAYS, AND EKG EKG: EKG time: (1450). Regular narrow-complex tachycardia (ventricular rate 137). Sinus tachycardia. Normal P waves. Normal RAÚL. Normal QRS complex. Normal axis. Normal ST and T waves, QT and QTc. Prior EKG unavailable. The study has been interpreted contemporaneously by me. The study has been independently viewed by me. The EKG appears to be a good tracing. Interpretation time: 1450. Laboratory Tests: UA-Culture if indicated: (APOLLO: 12/24/2016 16:45) ( MsgRcvd 12/24/2016 17:00) Final results Test Result Flag Units (Reference) URINE COLOR HAMMAD URINE APPEARANCE CLEAR URINE GLUCOSE NEGATIVE (NEGATIVE) URINE BILIRUBIN NEGATIVE (NEGATIVE) URINE KETONE NEGATIVE (NEGATIVE) URINE SPECIFIC GRAVITY <= 1.005 L (1.010-1.030) URINE PH 6.5 (5.0-8.0) URINE PROTEIN NEGATIVE (NEGATIVE) URINE UROBILINOGEN 0.2 EU/dL (0.2-1.0) URINE NITRITE NEGATIVE (NEGATIVE) URINE BLOOD NEGATIVE (NEGATIVE) URINE LEUK ESTERASE NEGATIVE (NEGATIVE) URINE RBC NONE SEEN rbc/hpf (0-1) URINE WBC RARE wbc/hpf (0-1) URINE EPITHELIAL CELLS NONE SEEN EPI/hpf (0-5) URINE BACTERIA NONE SEEN (NONE SEEN) URINE COMMENT CULT NOT INDICATED URINE CULTURES ARE SET-UP BASED ON THE FOLLOWING CRITERIA:POSITIVE NITRITEPOSITIVE LEUKOCYTE ESTERASEGREATER THAN 10 WHITE BLOOD CELLSMODERATE (2+) OR GREATER BACTERIA CBC w Diff: (APOLLO: 12/24/2016 15:08) ( [facility] 12/24/2016 15:33) Final results Test Result Flag Units (Reference) WHITE BLOOD COUNT 9.4 K/uL (4.5-11.5) CORRECTED WBC 9.4 K/uL RED BLOOD COUNT 3.12 L M/uL (4.50-5.90) HEMOGLOBIN 10.6 L gm/dL (13.5-17.5) HEMATOCRIT 30.6 L % (41.0-53.0) MEAN CELL VOLUME 98 fL (80-100) MEAN CORPUSCULAR HGB 34 pg (26-34) MEAN CORPUSCULAR HGB CONC 35 g/dL (31-37) RED CELL DISTRIBUTION WIDTH 19.5 H % (11.6-14.8) PLATELET COUNT 75 L K/uL (150-400) NEUTROPHIL % 73.2 % (50-75) LYMPH % 9.7 L % (25-40) MONO % 10.1 % (3-14) EOSINOPHIL % 6.2 H % (0-4) BASOPHIL % 0.8 % (0-2) [id number]: (APOLLO: 12/24/2016 15:08) ( [facility] 12/24/2016 15:48) Final results Test Result Flag Units (Reference) D-DIMER QUANTITATIVE 10.35 *H ug/mLFEU (0.27-0.52) CRITICAL RESULTS CALLEDCalled to Roslyn MENDEZ 12/24/16 1548Were 2 patient identifiers used? YWas the result read back? YThe primary value of this quantitative assay relates toits negative predictive value (i.e. exclusion) of pulmonaryembolism/deep vein thrombosis/DIC.Elevated levels of d-dimer may also occur with:, age, cancer, inflammation, liver disease,post-op, infection, hematoma, coronary disease, peripheralarteriopathy, bleeding disorders and thrombolytic treatment.Results should be correlated with other clinical andradiological data.Testing Methodology: Latex Immunoassay Ammonia Level: (APOLLO: 12/24/2016 13:49) ( [facility] 12/24/2016 16:34) Final results Test Result Flag Units (Reference) AMMONIA < 10 L umol/L (11-32) Lactate, Serum: (APOLLO: 12/24/2016 13:49) ( [facility] 12/24/2016 16:28) Final results Test Result Flag Units (Reference) LACTIC ACID 2.5 H mmol/L (0.4-2.0) CRITICAL RESULTS CALLEDCalled to ELSIE BRIDGES, ER 12/24/16 1628Were 2 patient identifiers used? YESWas the result read back? YES Urine Drug Screen: (APOLLO: 12/24/2016 16:45) ( [facility] 12/24/2016 17:08) Final results Test Result Flag Units (Reference) AMPHETAMINE/METHAMPHETAMINE NEGATIVE (NEGATIVE) BARBITURATE NEGATIVE (NEGATIVE) BENZODIAZEPINE NEGATIVE (NEGATIVE) CANNABINOID NEGATIVE (NEGATIVE) COCAINE NEGATIVE (NEGATIVE) ECSTASY NEGATIVE (NEGATIVE) METHADONE NEGATIVE (NEGATIVE) OPIATE POSITIVE H (NEGATIVE) The urine drug screen is a qualitative screening test fordrug overdose and abuse. All screen results should beconsidered as presumptive.Drugs screened for are as follows:BenzodiazepinesCocaineAmphetamines/MetamphetaminesTHC (Tetrahydrocannabinol)OpiatesBarbituratesEcstasyMethadonePositive results are unconfirmed. For confirmation, notifythe lab for the specimen to be sent to the reference lab.All confirmations must be performed by a differentmethodology.The ingestion of natural herbal and plant productscontaining Ephedra/Ephedra metabolites can produce in urineone or more substances capable of cross reacting withamphetamine/methamphetamine immunoassays. These testsprovide a preliminary result only. A more specificalternative chemical method must be used to obtain aconfirmed analytical result. BNP: (APOLLO: 12/24/2016 15:08) ( [facility] 12/24/2016 15:35) Final results Test Result Flag Units (Reference) B-TYPE NATRIURETIC PEPTIDE 157 H pg/ml (5-100) CHEM 13 PANEL: (APOLLO: 12/24/2016 15:08) ( MsgRcvd 12/24/2016 15:42) Final results Test Result Flag Units (Reference) GLUCOSE 163 H mg/dL (70-110) BUN 18 mg/dL (7-18) CREATININE 1.3 mg/dL (0.6-1.3) Estimated GFR >60 mL/min Estimated GFR- >60 mL/min Note: Persistent reduction over 3 months in eGFR<60 mL/min/1.73 m2 defines CKD. Patients with eGFR values>=60 mL/min/1.73 m2 may also have CKD if evidence ofpersistent proteinuria. Additional information may be foundat www.kidney.org. SODIUM 135 L mmol/L (136-145) POTASSIUM 4.1 mmol/L (3.5-5.1) CHLORIDE 104 mmol/L (98-107) CARBON DIOXIDE 20 L mmol/L (21-32) CALCIUM 8.5 mg/dL (8.5-10.1) TOTAL PROTEIN 6.9 g/dL (6.4-8.2) ALBUMIN 2.5 L g/dL (3.3-5.0) BILIRUBIN, TOTAL 8.0 H mg/dL (0.0-1.0) ALKALINE PHOSPHATASE 208 H U/L (46-116) AST (SGOT) 55 H U/L (15-37) ALT (SGPT) 35 U/L (12-78) MAGNESIUM 1.5 L mg/dL (1.8-2.4) CPK 45 U/L (24-260) TROPONIN I <0.05 ng/mL (0.00-1.5) TROPONIN REFERENCE RANGE:<0.1 NEGATIVE0.1-1.5 INDETERMINANT>1.5 POSITIVE . Note - Tests: (CTA Chest/Abd/Pel: No PE or dissection (prelim) 1. Normal thoracic and abdominal aorta, and branches without evidence of pathology. 2. Abdominal ascites, and mild anasarca, slightly increased compared to the most recent prior study. 3. Small bilateral pleural effusions greater than right. 4. Cirrhosis, portal hypertension, and splenomegaly.). PROGRESS AND PROCEDURES Disposition: Discharged home in good and improved condition. Condition: good. CLINICAL IMPRESSION Acute generalized abdominal pain of undetermined cause. Palpitations Sinus tachycardia INSTRUCTIONS Prescription Medications: Zofran (orally disintegrating tablets) 4 mg: take 1 orally every 6 hours as needed for nausea and vomiting. Dispense ten (10). One refill. Substitution is permissible. OxyIR 5 mg capsules: take 1-2 orally every 6 hours as needed for pain. Dispense fifteen (15). No refill. Follow-up: Follow up with your doctor in about two days. Call for an appointment. Screening today revealed the patient's blood pressure to be in the normal range. (Electronically signed by Juan Pablo Chavez Dr. 12/25/2016 8:36)
--- NOTE | 2016-12-24 20:57 | ED ORDER SUMMARY ---
..... Patient: MIRANDA SHANKS OrderSheet [facility] VisitID: [id number] [place] [address] 46y, M Registration Date/Time: 12/24/2016 ORDER SHEET Weight: 102.0 kg (stated) Allergies: Penicillins GENERAL ORDERS: Chest 1V Urgent (14:52 12/24/2016 Kleber Schultz) (Ack 14:55 AMcQuoid ER Tech1) (15:12 JBoardley R.N.) Cardiac Panel Stat (14:52 12/24/2016 Kleber Schultz) (Ack 14:55 AMcQuoid ER Tech1) (15:12 JBoardley R.N.) BNP Urgent (14:52 12/24/2016 Kleber Schultz) (Ack 14:55 AMcQuoid ER Tech1) (15:12 JBoardley R.N.) D-Dimer Urgent (14:52 12/24/2016 Kleber Schultz) (Ack 14:55 AMcQuoid ER Tech1) (15:12 JBoardley R.N.) UA-Culture if indicated Urgent (14:52 12/24/2016 Kleber Schultz) (Ack 14:55 AMcQuoid ER Tech1) (16:39 JBoardley R.N.) Urine Drug Screen Urgent (14:52 12/24/2016 Kleber Schultz) (Ack 14:55 AMcQuoid ER Tech1) (16:39 JBoardley R.N.) EKG - ER Stat (14:52 12/24/2016 Kleber Schultz) (Ack 14:55 AMcQuoid ER Tech1) (14:55 AMcQuoid ER Tech1) Lactate, Serum Urgent (15:33 12/24/2016 JBoardley R.N. verbal order read back to Kleber Schultz) (Ack 15:45 AMcQuoid ER Tech1) (16:09 JBoardley R.N.) Ammonia Level Urgent (15:33 12/24/2016 JBoardley R.N. verbal order read back to Kleber Schultz) (Ack 15:45 AMcQuoid ER Tech1) (16:09 JBoardley R.N.) CTA Thorax/Abdomen/Pelvis (No) (18/1.3) Urgent (15:58 12/24/2016 Kleber Schultz) (Ack 16:00 AMcQuoid ER Tech1) (16:39 JBoardley R.N.) MEDICATION ORDERS: IV FLUIDS: IV NS : initial bolus none -, then 1000 mL/hr for X1 (NOW) (14:52 12/24/2016 Kleber Schultz) (14:59 JBoardley R.N.) Morphine IV 4 mg (HIGH ALERT MEDICATION, NOW) (15:19 12/24/2016 JBoardley R.N. verbal order read back to Kleber Schultz) (15:20 JBoardley R.N.) Zofran IV 4 mg (NOW) (15:20 12/24/2016 JBoardlejyoti R.N. verbal order read back to Kleber Schultz) (15:20 JBoardley R.N.) IV NS : initial bolus none -, then 150 mL/hr for 8h (NOW) (16:43 12/24/2016 JBoardley R.N. verbal order read back to Kleber Schultz) (16:44 JBoardley R.N.) Morphine IV 4 mg (HIGH ALERT MEDICATION, NOW) (19:19 12/24/2016 Kleber Schultz) (19:25 HSoule) Zofran IV 4 mg (NOW) (19:19 12/24/2016 Kleber Schultz) (19:24 HSoule) ORDER SHEET NOTES: [Electronically signed by Serenity Cam (22:36 12/24/2016)] [Electronically signed by Juan Pablo Chavez Dr. (08:36 12/25/2016)] [Electronically locked/signed by Serenity Cam (22:36 12/24/2016)]
--- NOTE | 2016-12-24 20:57 | ED NURSING NOTES ---
Clinical Report - Nurses [facility] [address] [place] [address] 12/24/2016 14:46 Patient: MIRANDA SHANKS TRIAGE Triage time 14:49 Dec 24 2016. Acuity: LEVEL 3. Chief Complaint: ABDOMINAL PAIN. 14:50 12/24/16. 14:50 12/24/16. Alert. ( Abd pain and chest pain that started today. Pt was seen at [facility] recently and admitted. Pt states he was on liver transport list and not any more because he did follow protocol.). SEPSIS SCREEN: Sepsis Screen. Negative (no infection suspected/documented). --14:55 David Abreu R.N. 14:48 12/24/16. BP: 153/70. HR: 133. RR: 36. O2 saturation: 100% on nasal cannula at 4 liters/minute. Temp: 98.5 F (oral). Pain level now: 03/17. --14:55 David Abreu R.N. Weight: 102 kg stated. Height/Length: 74 inches Per Patient. BMI: 28.9. --14:51 David Abreu R.N. Medications Ciprofloxacin-Ciproflox HCl ER Oral. Dicyclomine HCl Oral (Tablet 20 mg) 1 tablet, 4x a day. Furosemide Oral (Tablet 20 mg) 1 tablet, daily. --14:56 David Abreu R.N. Gabapentin Oral 100 mg, 3x a day. Lactulose Oral (Solution 20 gm/30mL), 3x a day. Propranolol HCl Oral (Tablet 10 mg) 1 tablet, 2x a day. Spironolactone Oral (Tablet 50 mg) 1 tablet, daily. Xifaxan Oral (Tablet 550 mg) 1 tablet, 2 times daily. --14:56 David Abreu R.N. Medication/allergy information source: the patient and EMS. --14:55 David Abreu R.N. Allergies Penicillins. --14:56 David Abreu R.N. History Arrived by private vehicle. Primary physician (Alexandre Mena for PCP and Cancer care). 14:50 12/24/16. This started today. Treatment HISTOLOGIST: None. See EMS report. BP: 130 palp. HR: 133 irregular. Temp: 98.7 oral. PAST MEDICAL HX: Immunizations: up-to-date. SOCIAL HX: Alcohol use. Patient is a recovering alcoholic. (Stopped drinking 18 months ago). --14:55 David Abreu R.N. PROBLEMS: Weakness. Dizziness. Alcoholic Liver Disease. Diabetes Mellitus. Nausea. Gastritis. Abdominal Pain. Peritonitis. Suture Removal. Murmur. Esophageal ulcers. Gastric ulcer. Kidney problems. Liver failure. Alcoholism. --14:57 David Abreu R.N. Anemia. --14:57 David Abreu R.N. ADDITIONAL SURGERIES: Carpal Tunnel Surgery. Cholecystectomy. Dental Surgery. Hernia Repair. --14:57 David Abreu R.N. Assessment 14:50 12/24/16. --14:55 David Abreu R.N. Interventions 14:50 12/24/16. 14:50 12/24/16. ID and allergy band on patient. To treatment room. --14:55 David Abreu R.N. PHYSICAL ASSESSMENT 14:55 12/24/16. To room via stretcher. GENERAL / NEURO / PSYCH: Alert. Oriented X 4. Appears anxious. RESPIRATORY: Mild respiratory distress. CVS: Cardiac rhythm: atrial fibrillation. SKIN: Skin is warm and dry. --14:55 David Abreu R.N. NURSING PROGRESS NOTES 14:49 12/24/2016 Site #1 started via IV in the right antecubital space with an 20g angiocath, with aseptic technique and good blood return; one attempt (unable to draw labs from IV). --14:59 David Abreu R.N. 14:54 12/24/2016 Started bag #1 1000 mL IV Fluids IV NS (Saline); at 1000 mL/hr over 1 hour(s) via site #1. Allergies verified and confirmed 5 rights. IV patency established. IV site checked: no pain, redness, or swelling. IV flushed thoroughly pre- and post-medication administration. Completed per protocol. --14:59 David Abreu R.N. 14:56 12/24/16. Cardiac rhythm: atrial fibrillation. The plan of care for this patient has been created. Oxygen administered at 4 liters. laboratory monitor, pulse oximeter and NIBP monitor placed on patient; monitor alarms on. Patient gowned. Head of bed elevated. Call light placed in reach. Side rails up x 2. Bed placed in lowest position. Brakes of bed on. --14:56 David Abreu R.N. 14:56 12/24/16. The plan of care for this patient has been created. Head of bed elevated. Two patient identifiers checked. Call light placed in reach. Side rails up x 2. Bed placed in lowest position. Brakes of bed on. Patient ready for evaluation- chart flagged and notification provided. --14:58 David Abreu R.N. 15:20 12/24/2016 Morphine IVP 4 mg given over 2 minute(s) via site #1. Allergies verified, confirmed 5 rights and sedative warning given to the patient. IV patency established. IV site checked: no pain, redness, or swelling. IV flushed thoroughly pre- and post-medication administration. IVP given by RN. --15:20 David Abreu R.N. 15:20 12/24/2016 Zofran (Ondansetron HCl) IVP 4 mg given over 2 minute(s) via site #1. Allergies verified and confirmed 5 rights. IV patency established. IV site checked: no pain, redness, or swelling. IV flushed thoroughly pre- and post-medication administration. IVP given by RN. --15:20 David Abreu R.N. 15:23 12/24/16. Cardiac rhythm: normal sinus rhythm; (101). --15:23 David Abreu R.N. 15:22 12/24/16. BP: 124/72. HR: 100. RR: 18. O2 saturation: 100% on room air. --15:23 David Abreu R.N. 15:33 12/24/16. BP: 118/75. HR: 96. RR: 12. O2 saturation: 100% on nasal cannula at 4 liters/minute. --15:33 David Abreu R.N. 15:33 12/24/16. --15:33 David Abreu R.N. 15:33 12/24/16. Reassessment after medication administered. He has had no adverse reaction. Overall patient status- he states feels better. --15:33 David Abreu R.N. 15:48 12/24/16. Critical value relayed to ED by Miranda. Critical value received by David. D-Dimer 10.35. ED physician notifed of critical value. --15:48 David Abreu R.N. 16:15 12/24/16. Patient transported to CT by stretcher with nurse and tech. --16:15 David Abreu R.N. Critical value relayed to ED by Endy from lab. Critical value received by Robinson Ricketts RN. Lactate level: 2.5. Critical value read back. Verified lab result and patient ID. ED physician notifed of critical value. --16:28 Robinson Clements R.N. 16:34 12/24/2016 Started bag #1 1000 mL IV Fluids IV NS (Saline); at 150 mL/hr over 8 hour(s) via site #1. Allergies verified and confirmed 5 rights. IV patency established. IV site checked: no pain, redness, or swelling. IV flushed thoroughly pre- and post-medication administration. Completed per protocol. --16:44 David Abreu R.N. 16:39 12/24/2016 IV Fluids IV NS Discontinued: bag #1 infused. Total amount infused: 1000 mL. IV patency established. IV site checked: no pain, redness, or swelling. IV flushed thoroughly. --16:39 David Abreu R.N. 16:39 12/24/16. ( Urine in lab). --16:39 David Abreu R.N. 17:22 12/24/16. BP: 115/59. HR: 94. --17:23 McQuoid, Clarisse, ER Tech1 17:39 12/24/16. BP: 112/67. HR: 98. RR: 14. O2 saturation: 100% on nasal cannula at 2 liters/minute. --17:40 David Abreu R.N. 17:40 12/24/16. Cardiac rhythm: normal sinus rhythm. --17:40 David Abreu R.N. 18:48 12/24/16. Cardiac rhythm: normal sinus rhythm. --18:48 David Abreu R.N. 18:47 12/24/16. BP: 109/59. HR: 91. RR: 16. O2 saturation: 100% on nasal cannula at 2 liters/minute. --18:48 David Abreu R.N. 18:48 12/24/16. Patient and family informed about reason for wait and about plan of care. --18:48 David Abreu R.N. 19:14 12/24/16. Care transferred and report given. --19:14 David Abreu R.N. 19:17 12/24/16. BP: 110/64. HR: 93. RR: 17. O2 saturation: 100% on nasal cannula at 2 liters/minute. Pain level now: 02/15. --19:18 Serenity Cam ( Provider at bedside discussing plan of care with patient.). --19:18 Serenity Cam 19:24 12/24/2016 Zofran (Ondansetron HCl) IVP 4 mg given over 2 minute(s) via site #1. Allergies verified and confirmed 5 rights. IV patency established. IV site checked: no pain, redness, or swelling. IV flushed thoroughly pre- and post-medication administration. IVP given by RN. --19:24 Serenity Cam 19:25 12/24/2016 Morphine IVP 4 mg given over 2 minute(s) via site #1. Allergies verified, confirmed 5 rights and sedative warning given to the patient and patient's family. IV patency established. IV site checked: no pain, redness, or swelling. IV flushed thoroughly pre- and post-medication administration. IVP given by RN. --19:25 Serenity Cam laboratory monitor, pulse oximeter and NIBP monitor placed on patient; monitor alarms on. --19:25 Serenity Cam 19:31 12/24/16. ( Patient given PO fluids with provider permission). --19:31 Serenity Cam 20:13 12/24/16. BP: 116/69. HR: 88. RR: 20. O2 saturation: 97% on room air. Pain level now: 01/15. --20:14 Serenity Cam The patient is resting quietly. --20:14 Serenity Cam 20:59 12/24/2016 IV Fluids IV NS Discontinued: bag #2 discontinued upon discharge. Total amount infused: 650 mL. IV patency established. IV site checked: no pain, redness, or swelling. IV flushed thoroughly. --22:35 Serenity Cam. DISPOSITION / DISCHARGE 20:59 12/24/16. BP: 107/54. HR: 95. RR: 20. O2 saturation: 96% on room air. Temp: 98.9 F (oral). Pain level now: 01/15. --20:59 Serenity Cam 20:59 12/24/16. No learning barriers present. Discharge instructions provided and reviewed with the patient. Reviewed medication(s) side effects, precautions, dosing and course information. Prescription(s) given to the patient. Patient verbalized understanding. Written instructions provided in Croatian. ( Follow up with your PCP in two days. Discussed working with primary care for referral for at home services. Patient and machine operator packaging verbalized understanding and had no additional questions at this time.). The patient was discharged by the physician. He was discharged home and accompanied by machine operator packaging. He left the Emergency Department ambulatory and via private vehicle. Material Requirements Planning Manager driving. --22:34 Serenity Cam 20:59 12/24/2016 Site #1 removed upon discharge. Catheter intact. Bandaid applied. --22:35 Serenity Cam 20:59 12/24/16. Condition at departure: stable. The goals identified in the patient's plan of care were met. FALL RISK ASSESSMENT: Fall risk assessment completed. No fall risk identified. --20:59 Serenity Cam. Locked/Released at 12/24/2016 22:36 by Serenity Cam,
--- NOTE | 2016-12-24 20:57 | ED NURSING NOTES ---
Clinical Report - Nurses [facility] [address] [place] [address] 12/24/2016 14:46 Patient: MIRANDA SHANKS TRIAGE Triage time 14:49 Dec 24 2016. Acuity: LEVEL 3. Chief Complaint: ABDOMINAL PAIN. 14:50 12/24/16. 14:50 12/24/16. Alert. ( Abd pain and chest pain that started today. Pt was seen at [facility] recently and admitted. Pt states he was on liver transport list and not any more because he did follow protocol.). SEPSIS SCREEN: Sepsis Screen. Negative (no infection suspected/documented). --14:55 David Abreu R.N. 14:48 12/24/16. BP: 153/70. HR: 133. RR: 36. O2 saturation: 100% on nasal cannula at 4 liters/minute. Temp: 98.5 F (oral). Pain level now: 03/17. --14:55 David Abreu R.N. Weight: 102 kg stated. Height/Length: 74 inches Per Patient. BMI: 28.9. --14:51 David Abreu R.N. Medications Ciprofloxacin-Ciproflox HCl ER Oral. Dicyclomine HCl Oral (Tablet 20 mg) 1 tablet, 4x a day. Furosemide Oral (Tablet 20 mg) 1 tablet, daily. --14:56 David Abreu R.N. Gabapentin Oral 100 mg, 3x a day. Lactulose Oral (Solution 20 gm/30mL), 3x a day. Propranolol HCl Oral (Tablet 10 mg) 1 tablet, 2x a day. Spironolactone Oral (Tablet 50 mg) 1 tablet, daily. Xifaxan Oral (Tablet 550 mg) 1 tablet, 2 times daily. --14:56 David Abreu R.N. Medication/allergy information source: the patient and EMS. --14:55 David Abreu R.N. Allergies Penicillins. --14:56 David Abreu R.N. History Arrived by private vehicle. Primary physician (Alexandre Mena for PCP and Cancer care). 14:50 12/24/16. This started today. 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 See EMS report. BP: 130 palp. HR: 133 irregular. Temp: 98.7 oral. PAST MEDICAL HX: Immunizations: up-to-date. SOCIAL HX: Alcohol use. Patient is a recovering alcoholic. (Stopped drinking 18 months ago). --14:55 David Abreu R.N. PROBLEMS: Weakness. Dizziness. Alcoholic Liver Disease. Diabetes Mellitus. Nausea. Gastritis. Abdominal Pain. Peritonitis. Suture Removal. Murmur. Esophageal ulcers. Gastric ulcer. Kidney problems. Liver failure. Alcoholism. --14:57 David Abreu R.N. Anemia. --14:57 David Abreu R.N. ADDITIONAL SURGERIES: Carpal Tunnel Surgery. Cholecystectomy. Dental Surgery. Hernia Repair. --14:57 David Abreu R.N. Assessment 14:50 12/24/16. --14:55 David Abreu R.N. Interventions 14:50 12/24/16. 14:50 12/24/16. ID and allergy band on patient. To treatment room. --14:55 David Abreu R.N. PHYSICAL ASSESSMENT 14:55 12/24/16. To room via stretcher. GENERAL / NEURO / PSYCH: Alert. Oriented X 4. Appears anxious. RESPIRATORY: Mild respiratory distress. CVS: Cardiac rhythm: atrial fibrillation. SKIN: Skin is warm and dry. --14:55 David Abreu R.N. NURSING PROGRESS NOTES 14:49 12/24/2016 Site #1 started via IV in the right antecubital space with an 20g angiocath, with aseptic technique and good blood return; one attempt (unable to draw labs from IV). --14:59 David Abreu R.N. 14:54 12/24/2016 Started bag #1 1000 mL IV Fluids IV NS (Saline); at 1000 mL/hr over 1 hour(s) via site #1. Allergies verified and confirmed 5 rights. IV patency established. IV site checked: no pain, redness, or swelling. IV flushed thoroughly pre- and post-medication administration. Completed per protocol. --14:59 David Abreu R.N. 14:56 12/24/16. Cardiac rhythm: atrial fibrillation. The plan of care for this patient has been created. Oxygen administered at 4 liters. air sampling and monitoring, pulse oximeter and NIBP monitor placed on patient; monitor alarms on. Patient gowned. Head of bed elevated. Call light placed in reach. Side rails up x 2. Bed placed in lowest position. Brakes of bed on. --14:56 David Abreu R.N. 14:56 12/24/16. The plan of care for this patient has been created. Head of bed elevated. Two patient identifiers checked. Call light placed in reach. Side rails up x 2. Bed placed in lowest position. Brakes of bed on. Patient ready for evaluation- chart flagged and notification provided. --14:58 David Abreu R.N. 15:20 12/24/2016 Morphine IVP 4 mg given over 2 minute(s) via site #1. Allergies verified, confirmed 5 rights and sedative warning given to the patient. IV patency established. IV site checked: no pain, redness, or swelling. IV flushed thoroughly pre- and post-medication administration. IVP given by RN. --15:20 David Abreu R.N. 15:20 12/24/2016 Zofran (Ondansetron HCl) IVP 4 mg given over 2 minute(s) via site #1. Allergies verified and confirmed 5 rights. IV patency established. IV site checked: no pain, redness, or swelling. IV flushed thoroughly pre- and post-medication administration. IVP given by RN. --15:20 David Abreu R.N. 15:23 12/24/16. Cardiac rhythm: normal sinus rhythm; (101). --15:23 David Abreu R.N. 15:22 12/24/16. BP: 124/72. HR: 100. RR: 18. O2 saturation: 100% on room air. --15:23 David Abreu R.N. 15:33 12/24/16. BP: 118/75. HR: 96. RR: 12. O2 saturation: 100% on nasal cannula at 4 liters/minute. --15:33 David Abreu R.N. 15:33 12/24/16. --15:33 David Abreu R.N. 15:33 12/24/16. Reassessment after medication administered. He has had no adverse reaction. Overall patient status- he states feels better. --15:33 David Abreu R.N. 15:48 12/24/16. Critical value relayed to ED by Miranda. Critical value received by David. D-Dimer 10.35. ED physician notifed of critical value. --15:48 David Abreu R.N. 16:15 12/24/16. Patient transported to CT by stretcher with nurse and tech. --16:15 David Abreu R.N. Critical value relayed to ED by Endy from lab. Critical value received by Robinson Ricketts RN. Lactate level: 2.5. Critical value read back. Verified lab result and patient ID. ED physician notifed of critical value. --16:28 Robinson Clements R.N. 16:34 12/24/2016 Started bag #1 1000 mL IV Fluids IV NS (Saline); at 150 mL/hr over 8 hour(s) via site #1. Allergies verified and confirmed 5 rights. IV patency established. IV site checked: no pain, redness, or swelling. IV flushed thoroughly pre- and post-medication administration. Completed per protocol. --16:44 David Abreu R.N. 16:39 12/24/2016 IV Fluids IV NS Discontinued: bag #1 infused. Total amount infused: 1000 mL. IV patency established. IV site checked: no pain, redness, or swelling. IV flushed thoroughly. --16:39 David Abreu R.N. 16:39 12/24/16. ( Urine in lab). --16:39 David Abreu R.N. 17:22 12/24/16. BP: 115/59. HR: 94. --17:23 McQuoid, Clarisse, ER Tech1 17:39 12/24/16. BP: 112/67. HR: 98. RR: 14. O2 saturation: 100% on nasal cannula at 2 liters/minute. --17:40 David Abreu R.N. 17:40 12/24/16. Cardiac rhythm: normal sinus rhythm. --17:40 David Abreu R.N. 18:48 12/24/16. Cardiac rhythm: normal sinus rhythm. --18:48 David Abreu R.N. 18:47 12/24/16. BP: 109/59. HR: 91. RR: 16. O2 saturation: 100% on nasal cannula at 2 liters/minute. --18:48 David Abreu R.N. 18:48 12/24/16. Patient and family informed about reason for wait and about plan of care. --18:48 David Abreu R.N. 19:14 12/24/16. Care transferred and report given. --19:14 David Abreu R.N. 19:17 12/24/16. BP: 110/64. HR: 93. RR: 17. O2 saturation: 100% on nasal cannula at 2 liters/minute. Pain level now: 02/15. --19:18 Serenity Cam ( Provider at bedside discussing plan of care with patient.). --19:18 Serenity Cam 19:24 12/24/2016 Zofran (Ondansetron HCl) IVP 4 mg given over 2 minute(s) via site #1. Allergies verified and confirmed 5 rights. IV patency established. IV site checked: no pain, redness, or swelling. IV flushed thoroughly pre- and post-medication administration. IVP given by RN. --19:24 Serenity Cam 19:25 12/24/2016 Morphine IVP 4 mg given over 2 minute(s) via site #1. Allergies verified, confirmed 5 rights and sedative warning given to the patient and patient's family. IV patency established. IV site checked: no pain, redness, or swelling. IV flushed thoroughly pre- and post-medication administration. IVP given by RN. --19:25 Serenity Cam air sampling and monitoring, pulse oximeter and NIBP monitor placed on patient; monitor alarms on. --19:25 Serenity Cam 19:31 12/24/16. ( Patient given PO fluids with provider permission). --19:31 Serenity Cam 20:13 12/24/16. BP: 116/69. HR: 88. RR: 20. O2 saturation: 97% on room air. Pain level now: 01/15. --20:14 Serenity Cam The patient is resting quietly. --20:14 Serenity Cam 20:59 12/24/2016 IV Fluids IV NS Discontinued: bag #2 discontinued upon discharge. Total amount infused: 650 mL. IV patency established. IV site checked: no pain, redness, or swelling. IV flushed thoroughly. --22:35 Serenity Cam. DISPOSITION / DISCHARGE 20:59 12/24/16. BP: 107/54. HR: 95. RR: 20. O2 saturation: 96% on room air. Temp: 98.9 F (oral). Pain level now: 01/15. --20:59 Serenity Cam 20:59 12/24/16. No learning barriers present. Discharge instructions provided and reviewed with the patient. Reviewed medication(s) side effects, precautions, dosing and course information. Prescription(s) given to the patient. Patient verbalized understanding. Written instructions provided in [place]. ( Follow up with your PCP in two days. Discussed working with primary care for referral for at home services. Patient and supervisor aircraft maintenance verbalized understanding and had no additional questions at this time.). The patient was discharged by the physician. He was discharged home and accompanied by supervisor aircraft maintenance. He left the Emergency Department ambulatory and via private vehicle. Kitchenhand driving. --22:34 Serenity Cam 20:59 12/24/2016 Site #1 removed upon discharge. Catheter intact. Bandaid applied. --22:35 Serenity Cam 20:59 12/24/16. Condition at departure: stable. The goals identified in the patient's plan of care were met. FALL RISK ASSESSMENT: Fall risk assessment completed. No fall risk identified. --20:59 Serenity Cam. Locked/Released at 12/24/2016 22:36 by Serenity Cam,
--- NOTE | 2016-12-25 08:36 | ED MAR SUMMARY ---
..... Medication Administration Record [facility] [address] [place] [address] Patient: MIRANDA SHANKS Visit ID: [id number] 46y, M Weight: 102.0 kg Height/Length: 74 in BMI: 28.9 ALLERGIES: Penicillins Start 14:54 12/24/2016 David Abreu R.N., Stop 16:39 12/24/2016 David Abreu R.N. Medication Administered: IV NS (SALINE), Dose: IV Fluids over 1 hour(s), Rate: 1000 mL/hr, Dispensed: 1000 mL bag, Site: #1 right AC. Medication Ordered: IV NS : initial bolus none -, then 1000 mL/hr for X1 (NOW). Given 15:20 12/24/2016 David Abreu R.N. Medication Administered: MORPHINE [IVP], Dose: 4 mg IVP over 2 minute(s), Site: #1 right AC. Medication Ordered: Morphine IV 4 mg (HIGH ALERT MEDICATION, NOW). Given 15:20 12/24/2016 David Abreu R.N. Medication Administered: ZOFRAN [IVP] (ONDANSETRON HCL), Dose: 4 mg IVP over 2 minute(s), Site: #1 right AC. Medication Ordered: Zofran IV 4 mg (NOW). Start 16:34 12/24/2016 David Abreu R.N., Stop 20:59 12/24/2016 Serenity Cam, Medication Administered: IV NS (SALINE), Dose: IV Fluids over 8 hour(s), Rate: 150 mL/hr, Dispensed: 1000 mL bag, Site: #1 right AC. Medication Ordered: IV NS : initial bolus none -, then 150 mL/hr for 8h (NOW). Given 19:24 12/24/2016 Serenity Cam, Medication Administered: ZOFRAN [IVP] (ONDANSETRON HCL), Dose: 4 mg IVP over 2 minute(s), Site: #1 right AC. Medication Ordered: Zofran IV 4 mg (NOW). Given 19:25 12/24/2016 Serenity Cam, Medication Administered: MORPHINE [IVP], Dose: 4 mg IVP over 2 minute(s), Site: #1 right AC. Medication Ordered: Morphine IV 4 mg (HIGH ALERT MEDICATION, NOW).
--- NOTE | 2016-12-25 08:36 | ED MED RECONCILIATION SUMMARY ---
Patient: MIRANDA SHANKS Medication Reconciliation Report [facility] VisitID: [id number] [place] [address] 46y, M Registration Date/Time: 12/24/2016 Weight: 102.0 kg Height/Length: 74 in. BMI: 28.9 ALLERGIES: Penicillins The patient's Home Medications are listed below: THE FOLLOWING MEDICATIONS NEED TO BE RECONCILED: Ciprofloxacin-Ciproflox HCl ER Oral Dicyclomine HCl Oral (20 mg) 1 tablet, 4x a day Furosemide Oral (20 mg) 1 tablet, daily Gabapentin Oral 100 mg, 3x a day Lactulose Oral (20 gm/30mL), 3x a day Propranolol HCl Oral (10 mg) 1 tablet, 2x a day Spironolactone Oral (50 mg) 1 tablet, daily Xifaxan Oral (550 mg) 1 tablet, 2 times daily The source(s) of the original Home Medication information: patient EMS The following Medications were given to the patient in the Emergency Department: IV NS IV Fluids bolus 0, then 1000 mL/hr, administered: 12/24/2016 2:54:00 PM Morphine [IVP] IVP 4 mg, administered: 12/24/2016 3:20:00 PM Zofran [IVP] IVP 4 mg, administered: 12/24/2016 3:20:00 PM IV NS IV Fluids bolus 0, then 150 mL/hr, administered: 12/24/2016 4:34:00 PM Zofran [IVP] IVP 4 mg, administered: 12/24/2016 7:24:00 PM Morphine [IVP] IVP 4 mg, administered: 12/24/2016 7:25:00 PM The following Medications were prescribed to the patient: Zofran (orally disintegrating tablets) 4 mg: take 1 orally every 6 hours as needed for nausea and vomiting. Dispense ten (10). One refill. Substitution is permissible. -- Juan Pablo Chavez Dr. OxyIR 5 mg capsules: take 1-2 orally every 6 hours as needed for pain. Dispense fifteen (15). No refill. -- Juan Pablo Chavez Dr.
--- NOTE | 2016-12-25 08:36 | ED DISCHARGE INSTRUCTIONS ---
Patient: MIRANDA SHANKS General Instructions [facility] VisitID: [id number] [place] [address] 46y, M Registration Date/Time: 12/24/2016 Acute generalized abdominal pain of undetermined cause. Palpitations Sinus tachycardia INSTRUCTIONS Prescription Medications: Zofran (orally disintegrating tablets) 4 mg: take 1 orally every 6 hours as needed for nausea and vomiting. Dispense ten (10). One refill. Substitution is permissible. OxyIR 5 mg capsules: take 1-2 orally every 6 hours as needed for pain. Dispense fifteen (15). No refill. Follow-up: Follow up with your doctor in about two days. Call for an appointment. Screening today revealed the patient's blood pressure to be in the normal range. ADDITIONAL INFORMATION Heart Palpitations Palpitations refers to the feeling that your heart is beating hard, fast or irregular. Some people describe it as "pounding" or "skipped beats". Palpitations may occur in persons with heart disease, but can also occur in healthy persons. Heart-Related Causes: Arrhythmia (a change from the heart's normal rhythm) Disease of the heart valves Byi-Mdujj-Hirtvqi Causes: Certain medicines (such as asthma inhalers and decongestants) Some herbal supplements, energy drinks and pills, and weight loss pills Illegal stimulant drugs (such as cocaine, crank, methamphetamine, PCP) Caffeine, alcohol and tobacco Medical conditions such as thyroid disease, anemia, anxiety and panic disorder Sometimes the cause cannot be found. Home Care: Avoid excess caffeine, alcohol, tobacco and any stimulant drugs. Tell your doctor about any prescription or zsbj-sqx-nequvup or herbal medicines you take. Follow Up with your doctor or as advised by our staff. Get Prompt Medical Attention if any of the following occur together with palpitations: Weakness, dizziness, light-headed or fainting Chest pain or shortness of breath Rapid heart rate (over 120 beats per minute, at rest) Palpitations that lasts over 20 minutes Weakness of an arm or leg or one side of the face Difficulty with speech or vision Tachycardia:P.A.T. (P.S.V.T.) P.A.T. stands for Paroxysmal Atrial Tachycardia (also called "P.S.V.T." or "Paroxysmal Supraventricular Tachycardia"). This means "sudden onset of fast heart beating." This may feel like your heart is racing or pounding. Because of the suddenness of onset, it is often scary but is usually not a dangerous condition. Episodes may last seconds, minutes or hours. This can occur in otherwise healthy persons who have used excessive amounts of stimulants such as tobacco or caffeine (coffee, tea, cola or medicines containing caffeine). Also certain vnbm-lfp-zwjthlt cold & sinus remedies, as well as diet pills and some herbal supplements can over-stimulate the heart. Obviously, cocaine and amphetamine are the most powerful heart stimulants and must be avoided. Overactive thyroid and some types of heart valve disorders can also cause P.A.T. If your doctor suspects this, tests may be done to find out if this is the cause in your case. Home Care: 1) Rest today and resume your normal activities as soon as you are feeling back to normal. Sometimes a prolonged episode of P.A.T. can leave you feeling tired and weak for a while. 2) To prevent a recurrence, avoid ALL the stimulants mentioned above. If you have trouble eliminating coffee, switch to decaf. Smokers should make every effort to stop or at least switch to a filtered, low-nicotine type of cigarette while you look for a stop-smoking program. 3) If another episode of P.A.T. occurs, lie down and try to remain calm. These spells usually stop by themselves within a few minutes. Follow Up with your doctor within the week or as instructed by our staff. Get Prompt Medical Attention if any of the following occur: -- Chest, shoulder, arm, neck or back pain -- Shortness of breath -- Weakness -- Fainting or light-headedness -- Fast or pounding heartbeat that lasts over 20 minutes Abdominal Pain,Uncertain Cause [Male] Based on your visit today, the exact cause of your abdominalpain is not clear. Your exam and tests do not indicate a dangerous cause at this time. However, the signs of a serious problem may take more time to appear. Although your evaluation was reassuring today, sometimes early in the course of many conditions, exam and lab tests can appear normal. Therefore, it is important for you to watch for any new symptoms or worsening of your condition. Causes It may not be obvious what caused your symptoms. Pay attention to things that do seem to make your symptoms worse or better and discuss this with your doctor when you follow up. Diagnosis The evaluation of abdominal pain in the emergency department may onlyrequire an exam by the doctor or it may include blood, urine or imaging studies, depending on many factors. Sometimes exams and tests can identify a cause but in many cases, a clear cause is not found. Further testing at follow up visits may help to suggest a clear diagnosis. Home Care Rest as much as possible until your next exam. Try to avoid any medications (unless otherwise directed by your doctor), foods, activities, or other factors that you may have contributed to your symptoms. Try to eat foods that you know that you have tolerated well in the past. Certain diets may be recommended for some conditions that cause abdominal pain. However, since the cause of your symptoms may not be clear, discuss your diet more with your primary care provider or specialist for further recommendations. Eating several small meals per day as opposed to 2 or 3 larger meals may help. Monitor closely for anything that may make your symptoms worse or better. Pay close attention to symptoms below that may indicate worsening of your condition. Follow Up and Precautions See your doctoras instructed or sooneror if your symptoms are not improving.In some cases, you may need more testing. When to Seek Medical Attention Contact your doctor or see medical attention ifany of the following occur: Pain is becoming worse You are unable to take your medications due to excessive vomiting Swelling of the abdomen Fever of 100.4F (38C) or higher, or as directed by your health care provider Blood in vomit or bowel movements (dark red or black color) Jaundice (yellow color of eyes and skin) New onset of weakness, dizziness or fainting New onset of chest, arm, back, neck or jaw pain Ondansetron Oral disintegrating tablet What is this medicine? ONDANSETRON (on ZOE se guerrero) is used to treat nausea and vomiting caused by chemotherapy. It is also used to prevent or treat nausea and vomiting after surgery. How should I use this medicine? These tablets are made to dissolve in the mouth. Do not try to push the tablet through the foil backing. With dry hands, peel away the foil backing and gently remove the tablet. Place the tablet in the mouth and allow it to dissolve, then swallow. While you may take these tablets with water, it is not necessary to do so. Talk to your cardiology coordinator regarding the use of this medicine in children. Special care may be needed. What side effects may I notice from receiving this medicine? Side effects that you should report to your doctor or health aged or disabled carer as soon as possible: allergic reactions like skin rash, itching or hives, swelling of the face, lips, or tongue breathing problems dizziness fast or irregular heartbeat feeling faint or lightheaded, falls fever and chills swelling of the hands and feet tightness in the chest Side effects that usually do not require medical attention (report to your doctor or health aged or disabled carer if they continue or are bothersome): constipation or diarrhea headache What may interact with this medicine? Do not take this medicine with any of the following medications: -apomorphine -cisapride -dofetilide -dronedarone -pimozide -thioridazine -ziprasidone This medicine may also interact with the following medications: -carbamazepine -phenytoin -rifampicin -tramadol -other medicines that prolong the QT interval (cause an abnormal heart rhythm) What if I miss a dose? If you miss a dose, take it as soon as you can. If it is almost time for your next dose, take only that dose. Do not take double or extra doses. Where should I keep my medicine? Keep out of the reach of children. Store between 2 and 30 degrees C (36 and 86 degrees F). Throw away any unused medicine after the expiration date. What should I tell my health care provider before I take this medicine? They need to know if you have any of these conditions: heart disease history of irregular heartbeat liver disease low levels of magnesium or potassium in the blood an unusual or allergic reaction to ondansetron, granisetron, other medicines, foods, dyes, or preservatives or trying to get breast-feeding What should I watch for while using this medicine? Check with your doctor or health aged or disabled carer as soon as you can if you have any sign of an allergic reaction. You have been given the following additional information: Palpitations Pat (P.A.T.) Abdominal Pain, Unknown Cause, (Male) Ondansetron Oral disintegrating tablet (Electronically signed by Juan Pablo Chavez Dr. 12/25/2016 8:36)
--- NOTE | 2016-12-25 08:36 | ED DISCHARGE INSTRUCTIONS ---
Patient: MIRANDA SHANKS General Instructions [facility] VisitID: [id number] [place] [address] 46y, M Registration Date/Time: 12/24/2016 Acute generalized abdominal pain of undetermined cause. Palpitations Sinus tachycardia INSTRUCTIONS Prescription Medications: Zofran (orally disintegrating tablets) 4 mg: take 1 orally every 6 hours as needed for nausea and vomiting. Dispense ten (10). One refill. Substitution is permissible. OxyIR 5 mg capsules: take 1-2 orally every 6 hours as needed for pain. Dispense fifteen (15). No refill. Follow-up: Follow up with your doctor in about two days. Call for an appointment. Screening today revealed the patient's blood pressure to be in the normal range. ADDITIONAL INFORMATION Heart Palpitations Palpitations refers to the feeling that your heart is beating hard, fast or irregular. Some people describe it as "pounding" or "skipped beats". Palpitations may occur in persons with heart disease, but can also occur in healthy persons. Heart-Related Causes: Arrhythmia (a change from the heart's normal rhythm) Disease of the heart valves [id number] Causes: Certain medicines (such as asthma inhalers and decongestants) Some herbal supplements, energy drinks and pills, and weight loss pills Illegal stimulant drugs (such as cocaine, crank, methamphetamine, PCP) Caffeine, alcohol and tobacco Medical conditions such as thyroid disease, anemia, anxiety and panic disorder Sometimes the cause cannot be found. Home Care: Avoid excess caffeine, alcohol, tobacco and any stimulant drugs. Tell your doctor about any prescription or qwzs-duh-erdcjeu or herbal medicines you take. Follow Up with your doctor or as advised by our staff. Get Prompt Medical Attention if any of the following occur together with palpitations: Weakness, dizziness, light-headed or fainting Chest pain or shortness of breath Rapid heart rate (over 120 beats per minute, at rest) Palpitations that lasts over 20 minutes Weakness of an arm or leg or one side of the face Difficulty with speech or vision Tachycardia:P.A.T. (P.S.V.T.) P.A.T. stands for Paroxysmal Atrial Tachycardia (also called "P.S.V.T." or "Paroxysmal Supraventricular Tachycardia"). This means "sudden onset of fast heart beating." This may feel like your heart is racing or pounding. Because of the suddenness of onset, it is often scary but is usually not a dangerous condition. Episodes may last seconds, minutes or hours. This can occur in otherwise healthy persons who have used excessive amounts of stimulants such as tobacco or caffeine (coffee, tea, cola or medicines containing caffeine). Also certain nsmr-vrm-imiiczd cold & sinus remedies, as well as diet pills and some herbal supplements can over-stimulate the heart. Obviously, cocaine and amphetamine are the most powerful heart stimulants and must be avoided. Overactive thyroid and some types of heart valve disorders can also cause P.A.T. If your doctor suspects this, tests may be done to find out if this is the cause in your case. Home Care: 1) Rest today and resume your normal activities as soon as you are feeling back to normal. Sometimes a prolonged episode of P.A.T. can leave you feeling tired and weak for a while. 2) To prevent a recurrence, avoid ALL the stimulants mentioned above. If you have trouble eliminating coffee, switch to decaf. Smokers should make every effort to stop or at least switch to a filtered, low-nicotine type of cigarette while you look for a stop-smoking program. 3) If another episode of P.A.T. occurs, lie down and try to remain calm. These spells usually stop by themselves within a few minutes. Follow Up with your doctor within the week or as instructed by our staff. Get Prompt Medical Attention if any of the following occur: -- Chest, shoulder, arm, neck or back pain -- Shortness of breath -- Weakness -- Fainting or light-headedness -- Fast or pounding heartbeat that lasts over 20 minutes Abdominal Pain,Uncertain Cause [Male] Based on your visit today, the exact cause of your abdominalpain is not clear. Your exam and tests do not indicate a dangerous cause at this time. However, the signs of a serious problem may take more time to appear. Although your evaluation was reassuring today, sometimes early in the course of many conditions, exam and lab tests can appear normal. Therefore, it is important for you to watch for any new symptoms or worsening of your condition. Causes It may not be obvious what caused your symptoms. Pay attention to things that do seem to make your symptoms worse or better and discuss this with your doctor when you follow up. Diagnosis The evaluation of abdominal pain in the emergency department may onlyrequire an exam by the doctor or it may include blood, urine or imaging studies, depending on many factors. Sometimes exams and tests can identify a cause but in many cases, a clear cause is not found. Further testing at follow up visits may help to suggest a clear diagnosis. Home Care Rest as much as possible until your next exam. Try to avoid any medications (unless otherwise directed by your doctor), foods, activities, or other factors that you may have contributed to your symptoms. Try to eat foods that you know that you have tolerated well in the past. Certain diets may be recommended for some conditions that cause abdominal pain. However, since the cause of your symptoms may not be clear, discuss your diet more with your primary care provider or specialist for further recommendations. Eating several small meals per day as opposed to 2 or 3 larger meals may help. Monitor closely for anything that may make your symptoms worse or better. Pay close attention to symptoms below that may indicate worsening of your condition. Follow Up and Precautions See your doctoras instructed or sooneror if your symptoms are not improving.In some cases, you may need more testing. When to Seek Medical Attention Contact your doctor or see medical attention ifany of the following occur: Pain is becoming worse You are unable to take your medications due to excessive vomiting Swelling of the abdomen Fever of 100.4F (38C) or higher, or as directed by your health care provider Blood in vomit or bowel movements (dark red or black color) Jaundice (yellow color of eyes and skin) New onset of weakness, dizziness or fainting New onset of chest, arm, back, neck or jaw pain Ondansetron Oral disintegrating tablet What is this medicine? ONDANSETRON (on ZOE se guerrero) is used to treat nausea and vomiting caused by chemotherapy. It is also used to prevent or treat nausea and vomiting after surgery. How should I use this medicine? These tablets are made to dissolve in the mouth. Do not try to push the tablet through the foil backing. With dry hands, peel away the foil backing and gently remove the tablet. Place the tablet in the mouth and allow it to dissolve, then swallow. While you may take these tablets with water, it is not necessary to do so. Talk to your drafter engineering regarding the use of this medicine in children. Special care may be needed. What side effects may I notice from receiving this medicine? Side effects that you should report to your doctor or health clinical care leader as soon as possible: allergic reactions like skin rash, itching or hives, swelling of the face, lips, or tongue breathing problems dizziness fast or irregular heartbeat feeling faint or lightheaded, falls fever and chills swelling of the hands and feet tightness in the chest Side effects that usually do not require medical attention (report to your doctor or health clinical care leader if they continue or are bothersome): constipation or diarrhea headache What may interact with this medicine? Do not take this medicine with any of the following medications: -apomorphine -cisapride -dofetilide -dronedarone -pimozide -thioridazine -ziprasidone This medicine may also interact with the following medications: -carbamazepine -phenytoin -rifampicin -tramadol -other medicines that prolong the QT interval (cause an abnormal heart rhythm) What if I miss a dose? If you miss a dose, take it as soon as you can. If it is almost time for your next dose, take only that dose. Do not take double or extra doses. Where should I keep my medicine? Keep out of the reach of children. Store between 2 and 30 degrees C (36 and 86 degrees F). Throw away any unused medicine after the expiration date. What should I tell my health care provider before I take this medicine? They need to know if you have any of these conditions: heart disease history of irregular heartbeat liver disease low levels of magnesium or potassium in the blood an unusual or allergic reaction to ondansetron, granisetron, other medicines, foods, dyes, or preservatives or trying to get breast-feeding What should I watch for while using this medicine? Check with your doctor or health clinical care leader as soon as you can if you have any sign of an allergic reaction. You have been given the following additional information: Palpitations Pat (P.A.T.) Abdominal Pain, Unknown Cause, (Male) Ondansetron Oral disintegrating tablet (Electronically signed by Juan Pablo Chavez Dr. 12/25/2016 8:36)
--- NOTE | 2016-12-25 08:36 | ED MED RECONCILIATION SUMMARY ---
Patient: MIRANDA SHANKS Medication Reconciliation Report [facility] VisitID: [id number] [place] [address] 46y, M Registration Date/Time: 12/24/2016 Weight: 102.0 kg Height/Length: 74 in. BMI: 28.9 ALLERGIES: Penicillins The patient's Home Medications are listed below: THE FOLLOWING MEDICATIONS NEED TO BE RECONCILED: Ciprofloxacin-Ciproflox HCl ER Oral Dicyclomine HCl Oral (20 mg) 1 tablet, 4x a day Furosemide Oral (20 mg) 1 tablet, daily Gabapentin Oral 100 mg, 3x a day Lactulose Oral (20 gm/30mL), 3x a day Propranolol HCl Oral (10 mg) 1 tablet, 2x a day Spironolactone Oral (50 mg) 1 tablet, daily Xifaxan Oral (550 mg) 1 tablet, 2 times daily The source(s) of the original Home Medication information: patient EMS The following Medications were given to the patient in the Emergency Department: IV NS IV Fluids bolus 0, then 1000 mL/hr, administered: 12/24/2016 2:54:00 PM Morphine [IVP] IVP 4 mg, administered: 12/24/2016 3:20:00 PM Zofran [IVP] IVP 4 mg, administered: 12/24/2016 3:20:00 PM IV NS IV Fluids bolus 0, then 150 mL/hr, administered: 12/24/2016 4:34:00 PM Zofran [IVP] IVP 4 mg, administered: 12/24/2016 7:24:00 PM Morphine [IVP] IVP 4 mg, administered: 12/24/2016 7:25:00 PM The following Medications were prescribed to the patient: Zofran (orally disintegrating tablets) 4 mg: take 1 orally every 6 hours as needed for nausea and vomiting. Dispense ten (10). One refill. Substitution is permissible. -- Juan Pablo Chavez Dr. OxyIR 5 mg capsules: take 1-2 orally every 6 hours as needed for pain. Dispense fifteen (15). No refill. -- Juan Pablo Chavez Dr.
--- NOTE | 2016-12-25 08:36 | ED MAR SUMMARY ---
..... Medication Administration Record [facility] [address] [place] [address] Patient: MIRANDA SHANKS Visit ID: [id number] 46y, M Weight: 102.0 kg Height/Length: 74 in BMI: 28.9 ALLERGIES: Penicillins Start 14:54 12/24/2016 David Abreu R.N., Stop 16:39 12/24/2016 David Abreu R.N. Medication Administered: IV NS (SALINE), Dose: IV Fluids over 1 hour(s), Rate: 1000 mL/hr, Dispensed: 1000 mL bag, Site: #1 right AC. Medication Ordered: IV NS : initial bolus none -, then 1000 mL/hr for X1 (NOW). Given 15:20 12/24/2016 David Abreu R.N. Medication Administered: MORPHINE [IVP], Dose: 4 mg IVP over 2 minute(s), Site: #1 right AC. Medication Ordered: Morphine IV 4 mg (HIGH ALERT MEDICATION, NOW). Given 15:20 12/24/2016 David Abreu R.N. Medication Administered: ZOFRAN [IVP] (ONDANSETRON HCL), Dose: 4 mg IVP over 2 minute(s), Site: #1 right AC. Medication Ordered: Zofran IV 4 mg (NOW). Start 16:34 12/24/2016 David Abreu R.N., Stop 20:59 12/24/2016 Serenity Cam, Medication Administered: IV NS (SALINE), Dose: IV Fluids over 8 hour(s), Rate: 150 mL/hr, Dispensed: 1000 mL bag, Site: #1 right AC. Medication Ordered: IV NS : initial bolus none -, then 150 mL/hr for 8h (NOW). Given 19:24 12/24/2016 Serenity Cam, Medication Administered: ZOFRAN [IVP] (ONDANSETRON HCL), Dose: 4 mg IVP over 2 minute(s), Site: #1 right AC. Medication Ordered: Zofran IV 4 mg (NOW). Given 19:25 12/24/2016 Serenity Cam, Medication Administered: MORPHINE [IVP], Dose: 4 mg IVP over 2 minute(s), Site: #1 right AC. Medication Ordered: Morphine IV 4 mg (HIGH ALERT MEDICATION, NOW).
== END 2016-12-24 21:15 | disposition home or self-care (01) ==
LOC: ED SRH 14:46
DX: R10.84 Generalized abdominal pain (principal); R00.2 Palpitations; R00.0 Tachycardia, unspecified; E11.9 Type 2 diabetes mellitus without complications; Z79.899 Other long term (current) drug therapy; Z88.0 Allergy status to penicillin; Z72.0 Tobacco use; K70.40 Alcoholic hepatic failure without coma
CPT/HCPCS: 90004; 90074; 90100; 90616; 91320; 91556; 91588; 92031; 92610; 92720; 92760; 92761; 92762; 92763; 92764; 92765; 92766; 92767; 95059